=== PATIENT | male | born 1965 | race African-American/Black ===

== ENCOUNTER 2016-04-17 09:50 | Day surgery (SDC) | payer BC, OTHER ==
[2016-04-12 14:27] VITALS: BMI 47.7
[2016-04-17] MEDS ORDERED: LACTATED RINGERS 1,000 ML IV SCH (10:00)
[2016-04-17] MEDS ORDERED: LIDOCAINE 1% 20 ML VIAL (10MG/ML) FOR IV START INTRADERMA ONE (10:12)
[2016-04-17 10:15] VITALS: RESP 18; TEMP 97.8
[2016-04-17 10:17] LABS: Glucose,Whole Blood 116 mg/dL (75-99)
[2016-04-17] MEDS ORDERED: MIDAZOLAM 2 MG/2 ML VIAL ONE (10:36)
[2016-04-17] MEDS ORDERED: fentaNYL (PF) 50 MCG/ML 2 ML AMP ONE (10:36)
[2016-04-17] MEDS ORDERED: BUPIVACAINE (PF) 0.5% 30 ML VIAL ONE (10:36)
--- NOTE | 2016-04-17 10:58 | P.PCN ---
Date of Procedure: 04/17/16 Preoperative Diagnosis: Lumbar spondylosis without myelopathy Morbid obesity Postoperative Diagnosis: Lumbar spondylosis without myelopathy Morbid obesity Procedure(s) Performed: Lumbar bilateral medial branch block under fluoroscopic guidance Anesthesia: MAC Surgeon: Tg Sosa Pathology: none sent Condition: stable Disposition: PACU Description of Procedure: The patient was seen in preop holding area consent was obtained. He has significant cardiac dysfunction with history of AICD placement with the most recent EF about 45% as he was told. The patient was brought into the procedure room and placed in prone position. Skin was prepped with ChloraPrep and draped in a sterile manner. Lidocaine 1% used to numb the skin up at the target points that were chosen as follows: For the L5-S1 level which corresponds to the dorsal ramus of L5 the target points were at the superior medial aspect of the sacral alar on each side of the spine on the AP view of fluoroscopy, and for the L3 and L4 medial branches the target points were the connection between the transverse process and superior articular process of L4 and L5 vertebra respectively on the oblique view of fluoroscopy. I used 5 inch 22-gauge Quincke spinal needle for this procedure, after contacting bone at the target points mentioned above I injected 1 mL of Marcaine 0.5%. I did not use any steroids for this procedure. Patient tolerated procedure well.
[2016-04-17] MEDS ORDERED: IV FLUID CONTINUATION 1,000 ML IV ONE (11:05)
[2016-04-17 11:34] VITALS: BP 135/80; PULSE 74
--- NOTE | 2016-04-17 11:44 | FL ---
EXAMINATION TYPE: FL guided pain mgmt statistic DATE OF EXAM: 04/17/2016 11:02 AM HISTORY: Flouroscopy time 29 seconds of fluoroscopy provided. IMPRESSION: 1. Fluoroscopy time.
== END 2016-04-17 11:44 | disposition home or self-care (01) ==
LOC: ORPAIN 09:50
PROVIDERS: ATTEND Anesthesiology
DX: M47.816 Spondylosis without myelopathy or radiculopathy, lumbar region (principal); E11.9 Type 2 diabetes mellitus without complications; I11.0 Hypertensive heart disease with heart failure; I50.9 Heart failure, unspecified; E66.01 Morbid (severe) obesity due to excess calories; Z95.810 Presence of automatic (implantable) cardiac defibrillator
CPT/HCPCS: 64493; 64494; 64495; J2250; J3010

== ENCOUNTER → 2016-05-03 | Outpatient (CLI) | payer OTHER ==
[2016-05-03 15:26] VITALS: BP 141/104; PULSE 73; RESP 20; TEMP 97.6
--- NOTE | 2016-05-03 15:34 | P.PN ---
Progress Note - Text Patient returns for followup for chronic back pain with radiation to lower extremities. Patient recently underwent bilateral lumbar MBB x 2, the first of which provided 2-3 days' interval relief but the patient had no relief from the second. Patient continues on occasional Mentcle pills for pain with good relief. Patient denies adverse drug effects from medications. Today, pt denies new- onset weakness, bowel/bladder incontinence, or any other signs or symptoms of cauda equina syndrome. There are no signs of acute intoxication, and no indications of medication diversion or overuse. In addition to above, 13-point review of systems is also negative for chest pain , shortness of breath, changes in vision, changes in hearing, new onset weakness , abdominal pain, diarrhea, extreme fatigue, malaise, fever, skin changes, homicidal or suicidal ideation, or bowel or bladder incontinence. Vital Signs: Reviewed in EMR Gen: WDWN, AAOx3, NAD HEENT: NCAT, EOMI, hearing grossly normal Pulm: resp unlabored Abd: soft, NT, ND Neck: supple, trachea midline ROM in flexion lumbar spine: reduced ROM in extension lumbar spine: reduced Lumbar paravertebral tenderness: reduced Facet loading: ++ bilateral, L > R SI joint tenderness: + L > R Jose's test: + L side Neuro: CN II-XII grossly intact, muscle strength lower extremities PRESERVED Imaging: Reviewed in EMR Assessment: 1. lumbar spondylosis without myelopathy 2. sacroiliac joint dysfunction 3. morbid obesity Plan: 1. Explanation: Opioid and psychological risk scores were reviewed. Diagnoses , prognoses, and multiple treatment options including but not limited to physical therapy, interventional therapies, adjuvant medical therapies, narcotic medication therapies, and surgery were discussed with the patient and all questions were answered to the patient's satisfaction. 2. Opioid agreement: Patient will today sign narcotic agreement, and was orally counseled to not overuse, abuse, divert, or cell medications, and to take them as prescribed by only 1 healthcare provider. The patient was also counseled to store opioid medications in a safe and preferably locked location. Patient was also counseled against driving or operating heavy equipment while using narcotic medications and also to not use alcohol or any illicit or recreational drugs. The patient verbalized understanding that lack of compliance with any of the above and likely result in failure to renew narcotic prescriptions, possible discharge from the clinic, and possible legal ramifications thereafter if indicated. 3. Counseling: The patient was counseled extensively on BODY MASS INDEX, EXERCISE. Specifically, the patient was instructed regarding the importance of weight control and exercise in the context of both chronic pain and overall health. 4. Procedures: repeat bilateral lumbar MBB (please use steroids) 5. Consultations: None 6. Investigations: None 7. Medications: tramadol 50 mg #60 with one refill 8. Disposition: f/u for PQRS measures: 1-Patient's medications are documented in the chart. 2-Tobacco use is positive, counseling given 3-Patient has not had a pneumococcal vaccine. 4-Advanced care planning discussed, patient not able to give. 5-Opioid contract NOT signed with the patient. 6-Pain positive, follow-up visit or procedure scheduled 7-Patient's blood pressure measured and documented, and patient will follow up with the primary care due to hypertension. 8-Patient's weight was measured, and body mass index ABOVE the normal limits, and counseling was done. Patient instructed to follow up with PCP. 9-Patient WAS NOT identified as an unhealthy alcohol user.
== END | disposition home or self-care (01) ==
LOC: PNWHC3 14:19
PROVIDERS: ATTEND Anesthesiology
DX: M47.816 Spondylosis without myelopathy or radiculopathy, lumbar region (principal); M53.88 Other specified dorsopathies, sacral and sacrococcygeal region; E66.01 Morbid (severe) obesity due to excess calories; Z79.899 Other long term (current) drug therapy; Z72.0 Tobacco use; I10 Essential (primary) hypertension
CPT/HCPCS: 80307 ×2; G0480; G0463; 80349; 99211

== ENCOUNTER 2016-06-12 06:54 | Day surgery (SDC) | payer OTHER ==
[2016-06-09 11:35] VITALS: BMI 47.5
[~2016-06-12 06:54] MED LIST: LACTATED RINGERS 1,000 ML IV SCH
[2016-06-12 07:28] VITALS: RESP 16; TEMP 98
[2016-06-12 07:41] LABS: Glucose,Whole Blood 108 mg/dL (75-99)
[2016-06-12] MEDS ORDERED: TRIAMCINOLONE ACETONIDE 40 MG/ML 1 ML VIAL ONE (07:47)
[2016-06-12] MEDS ORDERED: fentaNYL (PF) 50 MCG/ML 2 ML AMP ONE (07:47)
[2016-06-12] MEDS ORDERED: BUPIVACAINE (PF) 0.5% 30 ML VIAL ONE (07:47)
[2016-06-12] MEDS ORDERED: MIDAZOLAM 2 MG/2 ML VIAL ONE (07:47)
--- NOTE | 2016-06-12 08:14 | P.PCN ---
Date of Procedure: 06/12/16 Preoperative Diagnosis: Lumbar spondylosis without myelopathy Postoperative Diagnosis: Lumbar spondylosis without myelopathy Procedure(s) Performed: Lumbar bilateral medial branch block under fluoroscopic guidance Anesthesia: MAC Surgeon: Tg Sosa Pathology: none sent Condition: stable Disposition: PACU Description of Procedure: The patient was seen in the preop holding area consent was obtained then he was brought into the procedure room and placed in prone position. Skin was prepped with ChloraPrep and draped in a sterile manner. Lidocaine 1% was used to numb the skin up at the target points that were chosen as follows: For the dorsal ramus of L5 the target points were of the superior medial aspect of the sacral ala on each side of the spine on the AP view of fluoroscopy, and for the L3 and L4 medial branches the target points were the connection between the transverse process and the superior articular process of L4 and L5 vertebra respectively on the oblique view of fluoroscopy. I used 22-gauge 5 inch Quincke spinal needle for this procedure and after contacting bone at the target points mentioned above I injected 1 mL of a solution made up of 5 MLS of Marcaine 0.5% +40 mg of Kenalog. Patient tolerated procedure well.
[2016-06-12] MEDS ORDERED: IV FLUID CONTINUATION 1,000 ML IV ONE (08:17)
[2016-06-12 08:19] VITALS: PULSE 66
--- NOTE | 2016-06-12 08:22 | FL ---
FLUOROSCOPY 11 seconds of fluoroscopy time were utilized during facet block. 3 images document the procedure.
[2016-06-12 08:32] VITALS: BP 135/78
== END 2016-06-12 08:49 | disposition home or self-care (01) ==
LOC: ORPAIN 06:54
PROVIDERS: ATTEND Anesthesiology
DX: M47.816 Spondylosis without myelopathy or radiculopathy, lumbar region (principal)
CPT/HCPCS: 64493; 64494; 64495; J2250; J3301; J3010

== ENCOUNTER → 2016-06-20 | Outpatient (CLI) | payer OTHER ==
--- NOTE | 2016-06-20 21:41 | PN ---
This is a 50-year-old obese male patient who is coming in for a CPAP compliancy check. The patient was diagnosed having severe DAKOTA and the patient was started on CPAP therapy at a pressure of 16 cm of water. On today's evaluation, the patient seems to be using his CPAP every night without any interruption. His compliance over the past month is 30 out of 30 with an average CPAP use of 7.5 hours per night. He is using a Simplus full face mask with leak factor is 19 L/ minimal. His AHI while on treatment is down to 1.1. He has no other complaints otherwise. He has mentioned that he is up sweating at night and he wants to eliminate the heated humidification and this option was available to assist CPAP machine and appropriate adjustments were made. His weight is up at 393 which is 8 pounds higher compared to 2 months ago. Clinically the patient is doing well. He is alert and awake during the day. He is benefiting from CPAP therapy. No falling asleep during daytime activities. He is averaging at least 7 hours of sleep at night. BP is 142/83, pulse 100, respiration 16, temperature 98.0, weight is 393, saturation 96% on room air. GENERAL APPEARANCE: Obese, calm, comfortable. HEENT: Short neck, crowding posterior pharynx. LUNGS: Clear to auscultation. HEART: Heart sounds are regular rate and rhythm. Normal S1, S2. No S3. No S4. No murmurs. ABDOMEN: Soft, nontender. No organomegaly. EXTREMITIES: No edema. No cyanosis, or clubbing. IMPRESSION: 1. Symptomatic obstructive sleep apnea, currently receiving CPAP at a pressure of 16 cm of water. The patient is clinically improved and patient is compliant. 2. Sick sinus syndrome. 3. Ischemic cardiomyopathy status post AICD placement. 4. Diabetes mellitus. 5. Hypertension. 6. Chronic back pain. 7. Obesity with interval 8 pounds weight gain. His current body mass index is above 50. PLAN: 1. Weight loss. 2. Encourage using CPAP every night. 3. Implement good sleep hygiene measures. 4. Clinically patient improved. 5. Suggest considering the Simplus fullface mask, which is a large size. 6. Eliminate heated humidity. 7. See me back in a year's time in follow-up; earlier if needed.
== END | disposition home or self-care (01) ==
LOC: SLEEP 14:50
PROVIDERS: ATTEND Internal Medicine Critical Care Medicine
DX: G47.33 Obstructive sleep apnea (adult) (pediatric) (principal); I49.5 Sick sinus syndrome; I25.5 Ischemic cardiomyopathy; Z95.810 Presence of automatic (implantable) cardiac defibrillator; E11.9 Type 2 diabetes mellitus without complications; I10 Essential (primary) hypertension; G89.29 Other chronic pain; M54.9 Dorsalgia, unspecified; E66.9 Obesity, unspecified; Z68.43 Body mass index [BMI] 50.0-59.9, adult

== ENCOUNTER → 2016-07-25 | Outpatient (CLI) | payer OTHER ==
[2016-07-25 13:15] VITALS: BP 167/104; PULSE 74; RESP 18; TEMP 96.4
--- NOTE | 2016-07-25 13:35 | P.PN ---
Progress Note - Text Patient returns for followup for chronic back pain with radiation to lower extremities. Patient recently underwent bilateral lumbar MBB x 2, the first of which provided 2-3 days' interval relief but the patient had 2-3 hours relief from second MBB which was done without steroids (and no fentanyl given). Patient did not fill tramadol prescription from last visit. Patient denies adverse drug effects from medications. He is still having severe pain with simply taking a walk with his girlfriend. Today, pt denies new-onset weakness, bowel/bladder incontinence, or any other signs or symptoms of cauda equina syndrome. There are no signs of acute intoxication, and no indications of medication diversion or overuse. In addition to above, 13-point review of systems is also negative for chest pain , shortness of breath, changes in vision, changes in hearing, new onset weakness , abdominal pain, diarrhea, extreme fatigue, malaise, fever, skin changes, homicidal or suicidal ideation, or bowel or bladder incontinence. Vital Signs: Reviewed in EMR Gen: WDWN, AAOx3, NAD HEENT: NCAT, EOMI, hearing grossly normal Pulm: resp unlabored Abd: soft, NT, ND Neck: supple, trachea midline ROM in flexion lumbar spine: reduced ROM in extension lumbar spine: reduced Lumbar paravertebral tenderness: reduced Facet loading: ++ bilateral, L > R SI joint tenderness: + L > R Jose's test: + L side Neuro: CN II-XII grossly intact, muscle strength lower extremities PRESERVED Imaging: Reviewed in EMR Assessment: 1. lumbar spondylosis without myelopathy 2. sacroiliac joint dysfunction 3. morbid obesity Plan: 1. Explanation: Opioid and psychological risk scores were reviewed. Diagnoses , prognoses, and multiple treatment options including but not limited to physical therapy, interventional therapies, adjuvant medical therapies, narcotic medication therapies, and surgery were discussed with the patient and all questions were answered to the patient's satisfaction. 2. Opioid agreement: Patient will today sign narcotic agreement, and was orally counseled to not overuse, abuse, divert, or cell medications, and to take them as prescribed by only 1 healthcare provider. The patient was also counseled to store opioid medications in a safe and preferably locked location. Patient was also counseled against driving or operating heavy equipment while using narcotic medications and also to not use alcohol or any illicit or recreational drugs. The patient verbalized understanding that lack of compliance with any of the above and likely result in failure to renew narcotic prescriptions, possible discharge from the clinic, and possible legal ramifications thereafter if indicated. 3. Counseling: The patient was counseled extensively on BODY MASS INDEX, EXERCISE. Specifically, the patient was instructed regarding the importance of weight control and exercise in the context of both chronic pain and overall health. 4. Procedures: R vs. L lumbar RFA 5. Consultations: None 6. Investigations: None 7. Medications: none prescribed 8. Disposition: f/u for procedure as scheduled PQRS measures: 1-Patient's medications are documented in the chart. 2-Tobacco use is positive, counseling given 3-Patient has not had a pneumococcal vaccine. 4-Advanced care planning discussed, patient not able to give. 5-Opioid contract NOT signed with the patient. 6-Pain positive, follow-up visit or procedure scheduled 7-Patient's blood pressure measured and documented, and patient will follow up with the primary care due to hypertension. 8-Patient's weight was measured, and body mass index ABOVE the normal limits, and counseling was done. Patient instructed to follow up with PCP. 9-Patient WAS NOT identified as an unhealthy alcohol user.
== END | disposition home or self-care (01) ==
LOC: PNWHC3 12:58
PROVIDERS: ATTEND Anesthesiology
DX: M47.816 Spondylosis without myelopathy or radiculopathy, lumbar region (principal); M53.3 Sacrococcygeal disorders, not elsewhere classified; E66.01 Morbid (severe) obesity due to excess calories; G89.29 Other chronic pain
CPT/HCPCS: 99211

== ENCOUNTER 2016-08-10 11:00 | Day surgery (SDC) | payer OTHER ==
[2016-08-01 09:11] VITALS: BMI 47.5
[2016-08-10 10:25] VITALS: TEMP 96.4
[2016-08-10 10:36] LABS: Glucose,Whole Blood 106 mg/dL (75-99)
[~2016-08-10 11:00] MED LIST changes: +LIDOCAINE 1% 20 ML VIAL (10MG/ML) FOR IV START INTRADERMA PRN; +MIDAZOLAM 2 MG/2 ML VIAL ONE; +TRIAMCINOLONE ACETONIDE 40 MG/ML 1 ML VIAL ONE; +fentaNYL (PF) 50 MCG/ML 2 ML AMP ONE
--- NOTE | 2016-08-10 11:40 | P.PCN ---
Date of Procedure: 08/10/16 Preoperative Diagnosis: Lumbar spondylosis without myelopathy Morbid Obesity Postoperative Diagnosis: Same as above Procedure(s) Performed: Left lumbar medial branch radio frequency ablation under fluoroscopic guidance Implants: Anesthesia: other (Conscious sedation) Surgeon: Tg Sosa Pathology: none sent Condition: stable Disposition: PACU Indications for Procedure: Operative Findings: Description of Procedure: The patient was seen in the preop holding area consent was obtained then he was brought into the procedure room and placed in prone position. Skin was prepped with Betadine 3 and draped in a sterile manner. Lidocaine 1% was used to numb the skin over the target points that were chosen as follows: For the L5-S1 level which corresponds to the dorsal ramus of L5 the target point was at the superior medial aspect of the sacral ala on the left side of the spine on the AP view of fluoroscopy and for the L3 and L4 medial branches the target points were at the connection between the transverse process and the superior articular process of L4 and L5 vertebra respectively on the left oblique view of fluoroscopy. I used 18-gauge 150 mm in length with 10 mm curved active tip radiofrequency ablation needles for this procedure. The, oblique, and lateral views of fluoroscopy were obtained to verify needle tip position then motor stimulation showed only local twitches of these needles with no radiation of twitching to the left lower extremity or to the groin anteriorly. Then I prepared a solution of 2 MLS Marcaine 0.5% +40 mg of Kenalog and 1 mL of the solution was given in each needle. After that radiofrequency ablation was started for 90 seconds at 80C. Then the needles were withdrawn by 1 or 2 mm and the bevels were turned 180 and then another session of ablation was started for 90 seconds at 80C. Patient tolerated procedure well. During the testing at the ablation a magnetic was applied to the patient's AICD and removed at the end of the procedure.
--- NOTE | 2016-08-10 11:42 | FL ---
FLUOROSCOPY 55 seconds of fluoroscopy time were utilized during Pain Injection. 1 images document the procedure..
[2016-08-10] MEDS ORDERED: IV FLUID CONTINUATION 1,000 ML IV ONE (11:50)
[2016-08-10 12:09] LABS: Glucose,Whole Blood 129 mg/dL (75-99)
[2016-08-10] MEDS ORDERED: MIDAZOLAM 2 MG/2 ML VIAL IVP ONE (12:15)
[2016-08-10 12:33] VITALS: RESP 16
[2016-08-10] MEDS ORDERED: LABETALOL 5 MG/ML VIAL MDV IVP ONE (12:45)
[2016-08-10 12:47] VITALS: BP 154/99; PULSE 59
== END 2016-08-10 13:30 | disposition home or self-care (01) ==
LOC: ORPAIN 11:00
PROVIDERS: ATTEND Anesthesiology
DX: M47.816 Spondylosis without myelopathy or radiculopathy, lumbar region (principal); E66.01 Morbid (severe) obesity due to excess calories; Z68.42 Body mass index [BMI] 45.0-49.9, adult; Z95.810 Presence of automatic (implantable) cardiac defibrillator
CPT/HCPCS: 64635; 64636 ×2; 99152; 99153; J2250; J3301; J3010

== ENCOUNTER → 2016-08-15 | Outpatient (CLI) | payer OTHER ==
[2016-08-15 13:02] LABS: Glucose 106 mg/dL (74-99)
[2016-08-15 13:52] LABS: Vitamin B12 528 pg/mL (239-931)
[2016-08-15 14:02] LABS: Hemoglobin A1C 6.4 % (4.2-6.1)
== END | disposition home or self-care (01) ==
LOC: LABWHC1 11:53
PROVIDERS: ATTEND Psychiatry & Neurology Neurology
DX: E11.42 Type 2 diabetes mellitus with diabetic polyneuropathy (principal)
CPT/HCPCS: 36415; 82607; 82947; 83036

== ENCOUNTER 2016-08-25 06:26 | Day surgery (SDC) | payer OTHER ==
[2016-08-23 11:05] VITALS: BMI 47.5
[~2016-08-25 06:26] MED LIST changes: -LIDOCAINE 1% 20 ML VIAL (10MG/ML) FOR IV START INTRADERMA PRN; -MIDAZOLAM 2 MG/2 ML VIAL ONE; -TRIAMCINOLONE ACETONIDE 40 MG/ML 1 ML VIAL ONE; -fentaNYL (PF) 50 MCG/ML 2 ML AMP ONE
[2016-08-25 06:44] VITALS: TEMP 84.8
[2016-08-25] MEDS ORDERED: LIDOCAINE 1% 20 ML VIAL (10MG/ML) FOR IV START INTRADERMA ONE (06:51)
[2016-08-25 06:52] LABS: Glucose,Whole Blood 94 mg/dL (75-99)
[2016-08-25] MEDS ORDERED: BUPIVACAINE (PF) 0.5% 30 ML VIAL ONE (07:56)
[2016-08-25] MEDS ORDERED: DEXAMETHASONE SOD PHOS (MDV) 100 MG/10 ML VIAL ONE (07:56)
[2016-08-25] MEDS ORDERED: MIDAZOLAM 2 MG/2 ML VIAL ONE (07:56)
[2016-08-25] MEDS ORDERED: fentaNYL (PF) 50 MCG/ML 2 ML AMP ONE (07:56)
[2016-08-25] MEDS ORDERED: IV FLUID CONTINUATION 1,000 ML IV ONE ×2 (08:37)
--- NOTE | 2016-08-25 08:39 | FL ---
FLUOROSCOPY 24 seconds of fluoroscopy time were utilized during Pain Injection. 4 images document the procedure.
[2016-08-25 09:08] VITALS: RESP 20
[2016-08-25] MEDS ORDERED: ONDANSETRON 4 MG/2 ML VIAL IVP STA (09:08)
[2016-08-25 09:10] LABS: Glucose,Whole Blood 107 mg/dL (75-99)
[2016-08-25 09:30] VITALS: BP 137/75; PULSE 66
--- NOTE | 2016-08-25 11:14 | P.PCN ---
Date of Procedure: 08/25/16 Preoperative Diagnosis: Postoperative Diagnosis: Procedure(s) Performed: PREOPERATIVE DIAGNOSIS: 1-Lumbar Spondylosis with Facet Arthropathy without myelopathy. POSTOPERATIVE DIAGNOSIS: 1- Lumbar Spondylosis with Facet Arthropathy without myelopathy. PROCEDURES : Right Radiofrequency thermocoagulation, L3-L4, L4-L5, and L5-S1 medial branch, with fluoroscopic guidance ANESTHESIA: IV sedation with versed 4 mg and fentaneyl 200 mcg and local infiltration with lidocaine 1% 6 ml EBL: Minimal PROCEDURE INDICATION: The patient with low back pain secondary to lumbar facet arthropathy who had more than 50% relief of her pain with previous diagnostic lumbar medial branch block with bupivacaine. PROCEDURE DESCRIPTION / TECHNIQUE: The patient was seen and identified in the preoperative area. Risks, benefits, complications, including but not limited to risk of infection ,bleeding , allergic reactions to the medications and no complete pain releife , and alternatives were discussed with the patient, the patient agreed to proceed with the procedure and signed the consent. IV was started. Vital signs remained stable throughout the procedure. Patient was taken to the OR and time out was completed. The patient was placed in the prone position on the procedure table. The lumber area was prepped and draped in the usual sterile fashion. . Vital signs were closely monitored during the procedure .IV sedation was used during the procedure to decrease patients anxiety. Using AP and then oblique fluoroscopy, the ``eye of the Ron dog corresponding to the connection between the superior and transverse articular processes of right L3, L4, and L5 were identified, marked, and localized with 1 % lidocaine. Subsequently, a 18 [id number] radiofrequency cannula with a 10- mm active tip was advanced guided by fluoroscopy to each of the ``eyes of the Ron dog at right L3, L4, and L5. Each site then underwent sensory testing at 50 Hz and 0 to 1 volt and motor testing at 2.5 Hz and 0 to 3 volt with local stimulation, but no radicular symptoms down the legs. Thereafter the right L3-4, L4-5, and L5-S1 sites underwent radiofrequency thermocoagulation at 80 degrees celsius for 90 seconds after injecting 0.5 ml of PF lidocaine 1%. then After the thermocoagulation done , 1 ml of the block solution containing Kenalog 40 mg and 3 ml of marain 0.5% was injected at the right L3- 4 , L4-5 , and L5-S1, levels after negative aspiration of CSF and blood and with no paresthesias. Cannulas were retracted while injecting lidocaine 1% until the needle is out. At the end of the procedure, the skin was cleansed and bandages were applied. COMPLICATIONS: No acute complications. DISPOSITION / PLANS: The patient was placed in a supine position and transferred to the recovery area in a stable condition for observation and was discharged from the recovery room after meeting discharge criteria. Home discharge instructions given to the patient by the staff. The patient was reexamined prior to discharge. The patient will schedule a follow up in the clinic in 2-4 weeks. Implants: Indications for Procedure: Operative Findings: Description of Procedure:
== END 2016-08-25 09:44 | disposition home or self-care (01) ==
LOC: ORPAIN 06:26
PROVIDERS: ATTEND Specialist
DX: M47.816 Spondylosis without myelopathy or radiculopathy, lumbar region (principal); M46.96 Unspecified inflammatory spondylopathy, lumbar region; I11.0 Hypertensive heart disease with heart failure; I50.9 Heart failure, unspecified; J44.9 Chronic obstructive pulmonary disease, unspecified; G47.33 Obstructive sleep apnea (adult) (pediatric); E11.9 Type 2 diabetes mellitus without complications; E66.01 Morbid (severe) obesity due to excess calories; Z79.01 Long term (current) use of anticoagulants
CPT/HCPCS: 99152; 64635; 64636 ×2; J2250; J2405; J3010; J1100

== ENCOUNTER → 2016-10-03 | Outpatient (CLI) | payer OTHER ==
--- NOTE | 2016-10-03 17:59 | US ---
EXAMINATION TYPE: US venous doppler duplex LE LT DATE OF EXAM: 10/03/2016 5:48 PM COMPARISON: NONE CLINICAL HISTORY: M79.652 Left thigh pain. SIDE PERFORMED: Left TECHNIQUE: The lower extremity deep venous system is examined utilizing real time linear array sonog alysia with graded compression, doppler sonography and color-flow sonography. VESSELS IMAGED: External Iliac Vein (EIV) Common Femoral Vein Deep Femoral Vein Greater Saphenous Vein * Femoral Vein Popliteal Vein Small Saphenous Vein * Proximal Calf Veins (* superficial vessels) Left Leg: Negative for DVT IMPRESSION: No evidence of deep venous thrombosis in the left leg.
--- NOTE | 2016-10-03 18:01 | XR ---
EXAMINATION TYPE: XR femur LT DATE OF EXAM: 10/03/2016 COMPARISON: NONE HISTORY: Pain TECHNIQUE: 4 views FINDINGS: I see no fracture nor dislocation. There is spurring of the acetabulum. I see no bony destr uctive process. IMPRESSION: There is some mild osteoarthritis in the left hip joint. No fracture.
--- NOTE | 2016-10-03 18:02 | XR ---
EXAMINATION TYPE: XR Hip Complete LT DATE OF EXAM: 10/03/2016 COMPARISON: NONE HISTORY: Pain TECHNIQUE: 2 views FINDINGS: AP and frog-leg views show mild acetabular spurring. There is spurring on the femoral head. There is mild hip joint space narrowing. I see no fracture. IMPRESSION: Mild osteoarthritis. No fracture.
== END | disposition home or self-care (01) ==
LOC: RADUSMAIN 17:07
PROVIDERS: ATTEND Family Medicine
DX: M79.652 Pain in left thigh (principal); M16.12 Unilateral primary osteoarthritis, left hip; E11.42 Type 2 diabetes mellitus with diabetic polyneuropathy; I10 Essential (primary) hypertension
CPT/HCPCS: 73502

== ENCOUNTER → 2016-10-11 | Outpatient (CLI) | payer OTHER ==
[2016-10-11 14:07] VITALS: BP 142/98; RESP 20; TEMP 97.7
--- NOTE | 2016-10-11 14:23 | P.PN ---
Progress Note - Text Patient returns for followup for chronic back pain with radiation to lower extremities. Patient recently underwent bilateral lumbar RFA with one month's relief of both his back and his leg pain but now has returned to his baseline pain. Patient is having pain primarily in his anterior thighs when he lies down. Patient denies adverse drug effects from medications. Today, pt denies new-onset weakness, bowel/bladder incontinence, or any other signs or symptoms of cauda equina syndrome. There are no signs of acute intoxication, and no indications of medication diversion or overuse. In addition to above, 13-point review of systems is also negative for chest pain , shortness of breath, changes in vision, changes in hearing, new onset weakness , abdominal pain, diarrhea, extreme fatigue, malaise, fever, skin changes, homicidal or suicidal ideation, or bowel or bladder incontinence. Vital Signs: Reviewed in EMR Gen: WDWN, AAOx3, NAD HEENT: NCAT, EOMI, hearing grossly normal Pulm: resp unlabored Abd: soft, NT, ND Neck: supple, trachea midline ROM in flexion lumbar spine: reduced ROM in extension lumbar spine: reduced Lumbar paravertebral tenderness: reduced Facet loading: ++ bilateral, L > R SI joint tenderness: + L > R Jose's test: + L side Straight leg raise: + LLE at 15 degrees Neuro: CN II-XII grossly intact, muscle strength lower extremities PRESERVED Imaging: Reviewed in EMR Assessment: 1. lumbar spondylosis without myelopathy 2. sacroiliac joint dysfunction 3. morbid obesity Plan: 1. Explanation: Opioid and psychological risk scores were reviewed. Diagnoses , prognoses, and multiple treatment options including but not limited to physical therapy, interventional therapies, adjuvant medical therapies, narcotic medication therapies, and surgery were discussed with the patient and all questions were answered to the patient's satisfaction. 2. Opioid agreement: no opioids prescribed 3. Counseling: The patient was counseled extensively on BODY MASS INDEX, EXERCISE. Specifically, the patient was instructed regarding the importance of weight control and exercise in the context of both chronic pain and overall health. 4. Procedures: LESI series, will need long Tuohy needle 5. Consultations: None 6. Investigations: None 7. Medications: none prescribed 8. Disposition: f/u for procedure as scheduled PQRS measures: 1-Patient's medications are documented in the chart. 2-Tobacco use is positive, counseling given 3-Patient has not had a pneumococcal vaccine. 4-Advanced care planning discussed, patient not able to give. 5-Opioid contract NOT signed with the patient. 6-Pain positive, follow-up visit or procedure scheduled 7-Patient's blood pressure measured and documented, and patient will follow up with the primary care due to hypertension. 8-Patient's weight was measured, and body mass index ABOVE the normal limits, and counseling was done. Patient instructed to follow up with PCP. 9-Patient WAS NOT identified as an unhealthy alcohol user.
== END ==
LOC: PNWHC3 13:33
PROVIDERS: ATTEND Anesthesiology
DX: M47.816 Spondylosis without myelopathy or radiculopathy, lumbar region (principal); M53.3 Sacrococcygeal disorders, not elsewhere classified; E66.01 Morbid (severe) obesity due to excess calories
CPT/HCPCS: 99211

== ENCOUNTER → 2016-10-24 | Outpatient (CLI) | payer OTHER ==
[2016-10-24 14:44] LABS: Anion Gap 11 mmol/L; Blood Urea Nitrogen 14 mg/dL (9-20); Calcium 9.7 mg/dL (8.4-10.2); Carbon Dioxide 29 mmol/L (22-30); Chloride 107 mmol/L (98-107); Glucose 128 mg/dL (74-99); Non-African American GFR(MDRD) >60 (>60 ml/min/1.73 sqM); Potassium 3.9 mmol/L (3.5-5.1); Sodium 147 mmol/L (137-145)
== END | disposition home or self-care (01) ==
LOC: LABWHC1 14:03
PROVIDERS: ATTEND Internal Medicine Cardiovascular Disease
DX: I50.9 Heart failure, unspecified (principal)
CPT/HCPCS: 36415; 80048

== ENCOUNTER 2016-10-31 06:28 | Day surgery (SDC) | payer OTHER ==
[2016-10-25 15:58] VITALS: BMI 48.7
[2016-10-31] MEDS ORDERED: LIDOCAINE 1% 20 ML VIAL (10MG/ML) FOR IV START INTRADERMA ONE (06:32)
[2016-10-31 06:48] VITALS: RESP 16; TEMP 94.1
[2016-10-31 06:55] LABS: Glucose,Whole Blood 108 mg/dL (75-99)
[2016-10-31] MEDS ORDERED: LACTATED RINGERS 1,000 ML IV ONE (07:21)
[2016-10-31] MEDS ORDERED: LACTATED RINGERS 1,000 ML IV SCH (07:30)
[2016-10-31] MEDS ORDERED: IV FLUID CONTINUATION 1,000 ML IV ONE (07:50)
[2016-10-31 08:05] VITALS: BP 120/84; PULSE 66
--- NOTE | 2016-10-31 08:20 | P.PCN ---
Date of Procedure: 10/31/16 Preoperative Diagnosis: Postoperative Diagnosis: Procedure(s) Performed: Implants: Surgeon: Bobby Liriano Pathology: none sent Condition: stable Disposition: PACU Indications for Procedure: Operative Findings: Description of Procedure: PREOPERATIVE DIAGNOSIS: 1-Lumbar radiculitis. POSTOPERATIVE DIAGNOSIS: 1-Lumbar radiculitis. PROCEDURE 1. Lumbar epidural steroid injection under fluoroscopic guidance at the L4-L5 level. 2. Lumbar epidurogram. ANESTHESIA: Local with 1% lidocaine; IV sedation with Versed/fentanyl. EBL: Minimal PROCEDURE INDICATION: The patient with low back pain and radiculitis symptoms unresponsive to conservative treatment. Fluoroscopy was used to optimize visualization of the needle placement and to maximize safety. No use of blood thinners. PROCEDURE DESCRIPTION / TECHNIQUE: The patient was seen and identified in the preoperative area. Risks, benefits, complications, and alternatives were discussed with the patient, including but not limited to bleeding, infection, nerve damage, allergic reactions to medications, and incomplete pain relief. The patient agreed to proceed with the procedure and signed the consent after all questions were answered. IV was started, and vital signs were stable. Patient was taken to the OR and time out was completed to confirm patient position, procedure, laterality of pain, and allergies. The patient was placed in the prone position on procedure table and a pillow was placed under the abdomen to reduce lumbar lordosis. The lumbosacral area was prepped and draped in the usual sterile fashion. Critical pause was taken. Vital signs were closely monitored during the procedure. Conscious sedation was used during the procedure to decrease patients anxiety. Using anterior-posterior fluoroscopy, the L5-S1 interlaminar space was identified and the skin over this site was marked and then infiltrated with 1% lidocaine subcutaneously. Subsequently, a 20-gauge 6-inch Tuohy epidural needle was inserted and advanced toward the epidural space using the Loss of resistance technique and guided by AP and lateral fluoroscopy. The correct needle position in the epidural space was verified with the injection of 2 mL of the water soluble contrast dye Omnipaque 300 contrast and observing an excellent epidurogram with the epidural spread of the dye, after negative aspiration for blood and CSF and in the absence of paresthesias. Again after negative aspiration, a 8 ml mixture containing 20 mg of PF Decadron and 4 ml of preservative free Normal Saline, and 2 ml of preservative free lidocaine 1% solution was injected and a washout of epidurogram was seen. Needle was withdrawn intact, skin was cleansed, and bandages were applied. COMPLICATIONS: None COMMENTS: DISPOSITION / PLANS: The patient was placed in a supine position and transferred to the recovery area in a stable condition for observation. There was no evidence of lower extremity motor or sensory deficit after the procedure. Patient was discharged from the recovery room after meeting discharge criteria. Home discharge instructions were given to the patient by the staff. The patient was reexamined prior to discharge and there were no issues. The patient will schedule a repeat LESI in 4-6 weeks.
--- NOTE | 2016-10-31 08:21 | FL ---
Fluoroscopy HISTORY: Pain 24 seconds fluoroscopy time supplied to the referring clinician. 4 intraoperative C-arm images docum ent the procedure. See dictated report from anesthesia.
== END 2016-10-31 08:23 | disposition home or self-care (01) ==
LOC: ORPAIN 06:28
PROVIDERS: ATTEND Anesthesiology
DX: G89.29 Other chronic pain (principal); M48.06 Spinal stenosis, lumbar region; M54.16 Radiculopathy, lumbar region; Z79.01 Long term (current) use of anticoagulants
CPT/HCPCS: 62323; 99152; J2250; J1100; Q9965; J3010

== ENCOUNTER 2016-11-28 06:27 | Day surgery (SDC) | payer OTHER ==
[2016-11-23 14:33] VITALS: BMI 50.0
[2016-11-28 07:11] VITALS: RESP 16; TEMP 97.7
[2016-11-28 07:13] LABS: Glucose,Whole Blood 113 mg/dL (75-99)
[2016-11-28] MEDS ORDERED: LIDOCAINE 1% 20 ML VIAL (10MG/ML) FOR IV START INTRADERMA ONE (07:17)
[2016-11-28] MEDS ORDERED: LACTATED RINGERS 1,000 ML IV ONE (07:17)
[2016-11-28] MEDS ORDERED: LACTATED RINGERS 1,000 ML IV SCH (07:45)
--- NOTE | 2016-11-28 08:06 | P.PCN ---
Date of Procedure: 11/28/16 Preoperative Diagnosis: Postoperative Diagnosis: Procedure(s) Performed: Implants: Surgeon: Bobby Liriano Pathology: none sent Condition: stable Disposition: PACU Indications for Procedure: Operative Findings: Description of Procedure: PREOPERATIVE DIAGNOSIS: 1-Lumbar radiculitis. POSTOPERATIVE DIAGNOSIS: 1-Lumbar radiculitis. PROCEDURE 1. Lumbar epidural steroid injection under fluoroscopic guidance at the L5-S1 level. 2. Lumbar epidurogram. ANESTHESIA: Local with 1% lidocaine; IV sedation with Versed/fentanyl. EBL: Minimal PROCEDURE INDICATION: The patient with low back pain and radiculitis symptoms unresponsive to conservative treatment. Fluoroscopy was used to optimize visualization of the needle placement and to maximize safety. No use of blood thinners. Patient presents for LESI #2 today after one week's worth of relief from LESI #1. PROCEDURE DESCRIPTION / TECHNIQUE: The patient was seen and identified in the preoperative area. Risks, benefits, complications, and alternatives were discussed with the patient, including but not limited to bleeding, infection, nerve damage, allergic reactions to medications, and incomplete pain relief. The patient agreed to proceed with the procedure and signed the consent after all questions were answered. IV was started, and vital signs were stable. Patient was taken to the OR and time out was completed to confirm patient position, procedure, laterality of pain, and allergies. The patient was placed in the prone position on procedure table and a pillow was placed under the abdomen to reduce lumbar lordosis. The lumbosacral area was prepped and draped in the usual sterile fashion. Critical pause was taken. Vital signs were closely monitored during the procedure. Conscious sedation was used during the procedure to decrease patients anxiety. Using anterior-posterior fluoroscopy, the L5-S1 interlaminar space was identified and the skin over this site was marked and then infiltrated with 1% lidocaine subcutaneously. Subsequently, a 20-gauge 6-inch Tuohy epidural needle was inserted and advanced toward the epidural space using the Loss of resistance technique and guided by AP and lateral fluoroscopy. The correct needle position in the epidural space was verified with the injection of 2 mL of the water soluble contrast dye Omnipaque 300 contrast and observing an excellent epidurogram with the epidural spread of the dye, after negative aspiration for blood and CSF and in the absence of paresthesias. Again after negative aspiration, a 8 ml mixture containing 20 mg of PF Decadron and 4 ml of preservative free Normal Saline, and 2 ml of preservative free lidocaine 1% solution was injected and a washout of epidurogram was seen. Needle was withdrawn intact, skin was cleansed, and bandages were applied. COMPLICATIONS: None COMMENTS: DISPOSITION / PLANS: The patient was placed in a supine position and transferred to the recovery area in a stable condition for observation. There was no evidence of lower extremity motor or sensory deficit after the procedure. Patient was discharged from the recovery room after meeting discharge criteria. Home discharge instructions were given to the patient by the staff. The patient was reexamined prior to discharge and there were no issues. The patient will schedule a follow up in the clinic in 4-6 weeks.
[2016-11-28] MEDS ORDERED: IV FLUID CONTINUATION 1,000 ML IV ONE (08:13)
[2016-11-28 08:29] VITALS: BP 119/73; PULSE 65
--- NOTE | 2016-11-28 10:47 | FL ---
Fluoroscopy HISTORY: Pain 52 seconds fluoroscopy time supplied to the referring clinician. 3 intraoperative C-arm images docum ent the procedure. See dictated report from anesthesia.
== END 2016-11-28 08:47 | disposition home or self-care (01) ==
LOC: ORPAIN 06:27
PROVIDERS: ATTEND Anesthesiology
DX: M54.16 Radiculopathy, lumbar region (principal); I10 Essential (primary) hypertension; F32.9 Major depressive disorder, single episode, unspecified; E11.9 Type 2 diabetes mellitus without complications; Z79.01 Long term (current) use of anticoagulants; Z79.84 Long term (current) use of oral hypoglycemic drugs; Z79.899 Other long term (current) drug therapy
CPT/HCPCS: 62323; 99152; J2250; J1100; Q9965; J3010; 99153

== ENCOUNTER → 2016-12-25 | Outpatient (CLI) | payer OTHER ==
[2016-12-25 14:37] VITALS: BP 143/86; PULSE 69; RESP 16; TEMP 98.2
--- NOTE | 2016-12-25 16:11 | P.PN ---
Progress Note - Text Progress Note Date: 12/25/16 This is a 51-year-old male was morbidly obese with lower back pain with radiation to the lower extremities down to the knees. The patient had lumbar epidural steroid injection lately which gave him only couple of days of pain relief he also had lumbar medial branch RFA which gave him only 1 month of pain relief previously. The patient's pain has been getting worse lately and he understands that the best way to decrease his pain is to lose some weight and he has been trying to do that he lost only 2-3 pounds so far. He does have tenderness in the sacroiliac joints bilaterally. Today I will put the patient on tramadol 50 mg twice a day as needed for his pain we will try to for 1 month and we will see him in 4 weeks for reevaluation. He might benefit from getting a diagnostic sacroiliac joint steroid injection bilaterally under fluoroscopic guidance however we will hold off on these injections for now since he had steroid injection very recently.
== END ==
LOC: PNWHC3 14:23
DX: M54.5 Low back pain (principal); E66.01 Morbid (severe) obesity due to excess calories; Z79.891 Long term (current) use of opiate analgesic
CPT/HCPCS: 99211

== ENCOUNTER → 2017-01-22 | Outpatient (CLI) | payer OTHER ==
[2017-01-22 14:24] VITALS: BP 141/78; PULSE 68; RESP 16; TEMP 98.1
--- NOTE | 2017-01-22 19:15 | P.PN ---
Subjective Progress Note Date: 01/22/17 This is a follow-up visit for this 51 years old male with a chronic history of severe low back pain, continued to have severe low back pain after interventional pain management and is currently on Ultram 50 mg twice a day, we have done radiofrequency ablation of the medial branch lumbar area and also we have done lumbar epidural steroid injections, the and the pain in the low back area is constant and increased with any activity and patient also complaining of some numbness and tingling sensation in the feet bilaterally, he denies any motor or sensory deficit he denies any change in the bowel movements or urination, currently patient taking Ultram 50 mg twice a day for pain and also is on naproxen 500 mg twice a day , he denies any side effect of the medication he denies any excessive drowsiness and sleepiness but he reported that the current medication is not helping him to control his pain Objective - Vital Signs Vital signs: Vital Signs Temp 98.1 F 01/22/17 14:16 Pulse 68 01/22/17 14:16 Resp 16 01/22/17 14:16 BP 141/78 01/22/17 14:16 Pulse Ox Intake & Output 01/22/17 01/22/17 01/23/17 06:59 18:59 06:59 Weight 176.901 kg - Exam Physical Examinations : 1-Constitutiona : Cooperative , not in acute distress . 2-HEENT : nech ; supple , no Lymphadenopathy , normal thyroid size . eyes : no ptosis , no icterus, no photophobia . ENT : normal of hearing , normal oropharynx , no Thrush . 3- Respiratory : Chest clear to auscultations Bilaterally , no wheezing , no Rhonchi . 4- Cardiovascular : regular rate and rhythem , S1 , S2 , no S3 , no S4. 5- Gastrointestinal : abdomen soft no tenderness , bowel sounds positive all four quadrents , no organomegally . 6- Genitourinary : Defferred . 7- neurologic : Cranial nerve II to XII intact , no focal neurological deffecit . 8-psychatric : alert , oriented X 3 , appropriate affect , intact judgment and insight . 9-Lymphatic : no Lymphadenopathy . 10- musculoskeltal : , Lumber spine = normal moter stegnth lower extremities ,thigh and legs .5/5 deep tendon reflexes : normal Knee Jerk , normal ankle Jerk . positive lumber facet Loading Test strait leg raising test positive at 30 degree , RT ,LT , Fabere test positive RT and positive LT . Assessment and Plan Plan: Assessment and plan= chronic low back pain secondary to lumbar degenerative disc disease , lumbar spondylosis with lumbar facet arthropathy , chronic and current use of high-risk medication (opioids) Patient denies any side effects of the current pain medication and the current treatment/medication ML and the patient to do activity of daily living , Diagnoses, prognosis, treatment options, including but not limited to physical therapy, medication management, interventional therapies, and surgery, were discussed with the patient All the questions answered Patient signed the narcotic agreement, and he was orally counseled, not to overuse, not to abuse, not to Divert , not tp sell pain medication, and to take it as prescribed only, Patient was counseled not to drive or operate heavy equipment while using narcotic medication, and advised not to use alcohol or any Illicit drugs while using the narcotis, the patient's verbalized understanding that lack of compliance with any of the above instructions and will likely to cause discharge from the pain service, not to renew his narcotic prescriptions Medication managements= patient will be given prescription refills for 1-discontinue naproxen (as patient currently on ELIQUIS ) on the combination between liquids and naproxen increased risk of bleeding 2-start patient on Celebrex 200 mg daily 3-start patient on Neurontin 300 mg twice a day. 4-continue Ultram 50 mg twice a day and 60 with 1 refill Interventional pain management=none Refferal =none Follow-up= 2 months ,
== END ==
LOC: PNWHC3 13:37
PROVIDERS: ATTEND Specialist
DX: M51.36 Other intervertebral disc degeneration, lumbar region (principal); M47.816 Spondylosis without myelopathy or radiculopathy, lumbar region; M46.86 Other specified inflammatory spondylopathies, lumbar region; Z79.891 Long term (current) use of opiate analgesic; Z79.899 Other long term (current) drug therapy
CPT/HCPCS: 99211

== ENCOUNTER 2017-01-28 20:07 | Emergency (ER) | payer OTHER ==
[2017-01-28] MEDS ORDERED: MORPHINE SULFATE 10 MG/ML SYRINGE IV STA (20:22)
[2017-01-28] MEDS ORDERED: ASPIRIN 81 MG PO STA (20:22)
[2017-01-28 21:01] LABS: Basophils # (A) 0.1 k/uL (0-0.2); Basophils % (A) 1 %; CHCM 31.7; Eosinophils # (A) 0.3 k/uL (0-0.7); Eosinophils % (A) 4 %; HGB 15.8 gm/dL (13.0-17.5); Luc # (Auto) 0.06; Luc % (Auto) 1; Lymphocytes # (A) 2.5 k/uL (1.0-4.8); Lymphocytes % (A) 30 %; MCHC 31.6 g/dL (31.0-37.0); MCV 88.6 fL (80.0-100.0); Monocytes # (A) 0.6 k/uL (0-1.0); Monocytes % (A) 7 %; Neutrophils # (A) 4.7 k/uL (1.3-7.7); Neutrophils % (A) 58 %; RBC 5.64 m/uL (4.30-5.90); RDW 14.9 % (11.5-15.5); WBC 8.2 k/uL (3.8-10.6); WBC (Perox) 7.52
[2017-01-28 21:07] LABS: ALT 31 U/L (21-72); AST 24 U/L (17-59); Alkaline Phosphatase 80 U/L (38-126); Anion Gap 8 mmol/L; Blood Urea Nitrogen 11 mg/dL (9-20); Calcium 9.2 mg/dL (8.4-10.2); Carbon Dioxide 28 mmol/L (22-30); Chloride 106 mmol/L (98-107); Glucose 103 mg/dL (74-99); Magnesium 1.7 mg/dL (1.6-2.3); Non-African American GFR(MDRD) >60 (>60 ml/min/1.73 sqM); Sodium 142 mmol/L (137-145); Total Bilirubin 0.7 mg/dL (0.2-1.3); Total Protein 7.5 g/dL (6.3-8.2)
[2017-01-28 21:09] LABS: INR 1.1 (<1.2); Partial Thromboplastin Time 25.7 sec (22.0-30.0); Prothrombin Time 11.2 sec (9.0-12.0)
[2017-01-28 21:09] LABS: Glucose,Whole Blood 103 mg/dL (75-99)
--- NOTE | 2017-01-28 21:30 | XR ---
EXAMINATION TYPE: XR chest 1V portable DATE OF EXAM: 01/28/2017 COMPARISON: 09/23/2015, 03/03/2015 INDICATION: Chest pain, previous abnormal chest TECHNIQUE: Single frontal view of the chest is obtained. FINDINGS: The heart size is at the upper limits of normal for size.. The pulmonary vasculature is normal. Right retrocardiac nodular density may remain present. Pacemaker overlies left chest. IMPRESSION: 1. No acute pulmonary process radiographically apparent. 2. Stable findings from previous exam. Continued monitoring is recommended.
[2017-01-28 21:37] LABS: Troponin I 0.019 ng/mL (0.000-0.034)
[2017-01-28 22:02] VITALS: RESP 18
--- NOTE | 2017-01-28 22:11 | ED ---
Chest Pain HPI - General Chief Complaint: Chest Pain Stated Complaint: Chest Pain/Pacemaker went off Time Seen by Provider: 01/28/17 20:22 Source: patient, family Mode of arrival: wheelchair Limitations: no limitations - History of Present Illness Initial Comments: This patient is a 51-year-old man who states that tonight he was taking a shower probably about an hour to 2 ago and he found himself on the floor the shower. He recalls having shocking feeling in believes that his AICD has discharged. He did feel a brief fluttering in his chest earlier. The patient states that he feels like he is back at his baseline now. He is not having any chest pain currently. No dyspnea, diaphoresis, nausea or vomiting. MD Complaint: chest pain -: hour(s) Onset: other (While taking shower) Pain Location: left chest Severity: severe Quality: other Consistency: now resolved Worsens With: nothing Treatments Prior to Arrival: defibrillation - Related Data Home Medications Medication Instructions Recorded Confirmed Budesonide-Formot 160-4.5 Mcg 2 puff INHALATION RT-DAILY 11/04/14 01/28/17 [Symbicort 160-4.5 Mcg Inhaler] Furosemide [Lasix] 40 mg PO DAILY PRN 10/12/15 01/28/17 Spironolactone [Aldactone] 25 mg PO DAILY 10/12/15 01/28/17 metFORMIN HCL [Glucophage] 500 mg PO DAILY 10/12/15 01/28/17 Metoprolol Succinate (ER) [Toprol 100 mg PO DAILY 10/11/16 01/28/17 Xl] Sertraline HCl [Zoloft] 100 mg PO DAILY 10/11/16 01/28/17 Sacubitril/Valsartan [Entresto 24 1 tab PO DAILY 10/25/16 01/28/17 mg-26 mg Tablet] Apixaban [Eliquis] 5 mg PO DAILY 11/23/16 01/28/17 busPIRone HCL [Buspar] 7.5 mg PO DAILY 01/22/17 01/28/17 Gabapentin [Neurontin] 300 mg PO DAILY 01/28/17 01/28/17 Tiotropium Eugene [Spiriva 1 puff INHALATION RT-DAILY 01/28/17 01/28/17 Respimat] Previous Rx's Medication Instructions Recorded traMADol HCL [Ultram] 50 mg PO BID PRN #60 tablet 01/22/17 Magnesium Oxide 400 mg PO DAILY #20 tablet 01/28/17 Allergies Allergy/AdvReac Type Severity Reaction Status Date / Time No Known Allergies Allergy Verified 01/28/17 21:30 Review of Systems ROS Statement: Those systems with pertinent positive or pertinent negative responses have been documented in the HPI. ROS Other: All systems not noted in ROS Statement are negative. Constitutional: Denies: fever, chills Respiratory: Denies: cough, dyspnea, wheezes Cardiovascular: Denies: chest pain, palpitations, orthopnea, edema Gastrointestinal: Denies: abdominal pain, nausea, vomiting, diarrhea, melena, hematochezia Genitourinary: Denies: dysuria, hematuria Musculoskeletal: Denies: back pain Skin: Denies: rash Neurological: Denies: headache, weakness, numbness EKG Findings - EKG Results: EKG: interpreted by ERMD, sinus rhythm (With occasional PVC and PACs. Rate approximately 95 bpm) - Blocks, [place], Hypertrophy, ST Abn: AV and intraventricular conduction: left bundle branch block (fixed/intermittent , complete/incomplete) QRS axis and voltage: left axis deviation (-30 to -90) Past Medical History Past Medical History: Asthma, Heart Failure, COPD, Diabetes Mellitus, Hypertension, Sleep Apnea/CPAP/BIPAP Additional Past Medical History / Comment(s): uses c-pap machine History of Any Multi-Drug Resistant Organisms: MRSA Date of last positivie culture/infection: 10/19/15 MDRO Source:: LEFT LEG Past Surgical History: AICD, Heart Catheterization, Pacemaker Additional Past Surgical History / Comment(s): TEETH EXTRACTIONS, pain procedures, Biotronik AICD Past Anesthesia/Blood Transfusion Reactions: No Reported Reaction Type of Cardiac Device: AICD Device Placement Date:: 2015 Past Psychological History: Anxiety Smoking Status: Current every day smoker Past Alcohol Use History: Occasional Past Drug Use History: None Reported - Past Family History Father History Unknown: Yes Mother Family Medical History: Diabetes Mellitus General Exam Limitations: no limitations General appearance: alert, in no apparent distress Head exam: Present: atraumatic, normocephalic Eye exam: Present: normal appearance. Absent: scleral icterus, conjunctival injection Neck exam: Present: normal inspection Respiratory exam: Present: normal lung sounds bilaterally. Absent: respiratory distress, wheezes, rales, rhonchi, stridor, chest wall tenderness Cardiovascular Exam: Present: regular rate, normal rhythm, normal heart sounds. Absent: systolic murmur, diastolic murmur, rubs, gallop GI/Abdominal exam: Present: soft. Absent: distended, tenderness, guarding, rebound, rigid Extremities exam: Present: normal inspection, normal capillary refill. Absent: pedal edema, calf tenderness Back exam: Present: normal inspection. Absent: CVA tenderness (R), CVA tenderness (L) Neurological exam: Present: alert Skin exam: Present: warm, dry, intact, normal color. Absent: rash Course Vital Signs 01/28/17 01/28/17 01/28/17 20:09 21:09 21:21 Temperature 97.1 F L Pulse Rate 51 L 91 Respiratory 20 18 20 Rate Blood Pressure 155/98 168/84 O2 Sat by Pulse 98 Oximetry 01/28/17 01/28/17 22:00 22:25 Temperature 98 F Pulse Rate 100 70 Respiratory 18 18 Rate Blood Pressure 128/75 125/65 O2 Sat by Pulse 98 98 Oximetry Chest Pain MDM - MDM I was summoned to the room because the patient's had decided that he was leaving. I discussed that I would like to have him admitted to be seen by the elementary school reading teacher and have his device interrogated, the patient stated he was leaving. He does understand risk of sudden cardiac and also a permanent disability. Return parameters discussed. Disposition Clinical Impression: Defibrillator discharge Disposition: Left Against Medical Advice Condition: Undetermined Prescriptions: Magnesium Oxide 400 mg PO DAILY #20 tablet Referrals: Marya Crooks MD [Primary Care Provider] - 1-2 days
[2017-01-28 22:26] VITALS: BP 125/65; PULSE 70; TEMP 98
== END 2017-01-28 22:25 | disposition left against medical advice (07) ==
LOC: EC 20:07
DX: T82.198A Other mechanical complication of other cardiac electronic device, initial encounter (principal); J44.9 Chronic obstructive pulmonary disease, unspecified; E11.9 Type 2 diabetes mellitus without complications; I11.0 Hypertensive heart disease with heart failure; I50.9 Heart failure, unspecified; F41.9 Anxiety disorder, unspecified; F17.200 Nicotine dependence, unspecified, uncomplicated; Z86.14 Personal history of Methicillin resistant Staphylococcus aureus infection; Z79.01 Long term (current) use of anticoagulants; Z79.51 Long term (current) use of inhaled steroids; Z79.84 Long term (current) use of oral hypoglycemic drugs; Z79.899 Other long term (current) drug therapy
CPT/HCPCS: 36415; 93005; 80053; 82550; 82553; 83735; 84484; 85025; 85610; 85730; 71010; 99285; 96374; J2270

== ENCOUNTER → 2017-03-20 | Outpatient (CLI) | payer OTHER ==
--- NOTE | 2017-03-20 15:42 | P.PN ---
Subjective Progress Note Date: 03/20/17 This is follow-up visit for this patient with a history of severe and chronic low back pain secondary to lumbar degenerative disc diseases , lumbar spondylosis with facet arthropathy, we have done ,interventional pain management injection,, and a steroid injection and he had benefit for 1 day only , the we have done radiofrequency ablation of the medial branch lumbar area , with good result with the radiofrequency Patients currently on 1-Neurontin 300 mg twice a 2- celebrex 200 mg daily 3-Ultram 50 mg twice a day when necessary Patient denies any side effects of the medication, denies excessive drowsiness or sleepiness, denies suicidal ideation, and reports that the current pain medication is NOT helping To control the pain and improve activity of daily living Patient denies any motor or sensory deficit , patient denies any fever or night sweats, denies any change in the bowel movements or urination Physical Examinations : 1-Constitutiona : Cooperative , not in acute distress . 2-HEENT : nech ; supple , no Lymphadenopathy , no Thyromegaly , normal thyroid size . eyes : no ptosis , no icterus, no photophobia . ENT : normal of hearing , normal oropharynx , no Thrush . 3- Respiratory : Chest clear to auscultations Bilaterally , no wheezing , no Rhonchi . 4- Cardiovascular : regular rate and rhythem , S1 , S2 , no S3 , no S4. 5- Gastrointestinal : abdomen soft no tenderness , bowel sounds positive all four quadrents , no organomegally . 6- Genitourinary : Defferred . 7- neurologic : Cranial nerve II to XII intact , no focal neurological deffecit . 8-psychatric : alert , oriented X 3 , appropriate affect , intact judgment and insight . 9-Lymphatic : no Lymphadenopathy . 10- musculoskeltal : exams of the Lumber spine = motor strength lower extremities ,thigh and legs .5/5 deep tendon reflexes : normal Knee Jerk , normal ankle Jerk . lumber facet Loading Test positive strait leg raising test positive at 30 degree , RT ,LT , Fabere test positive RT and positive LT . Range of motion: Range of motion in flexion of the lumbar spine 30 degrees Range of motion range of motion of extension of the lumbar spine 10 Sever tenderness over the Sacroiliac joint on the Right , and Left side Assessment and plan = Chronic low back pain secondary to lumbar degenerative disc disease , lumbar spondylosis with facet arthropathy without myelopathy , chronic and current use of high-risk medication (Opioids). The patient was counseled about risk of opioid use, psychological risk associated with opioids and was orally counseled to not overuse , divert,or sell dictations to take medications as prescribed only , and to restore medication in safe location , and the patient counseled against driving while using narcotic medications, and also not to use alcohol or any illicit recreational drugs, the patient's verbalized understanding that the lack of compliance will result in failure to renew narcotic prescription and possible discharge from the clinic - diagnoses, prognosis, and treatment options including but not limited to physical therapy, surgical interventions, interventional therapies , and medication management including narcotics and adjuvant medication were discussed with the patient and all the questions answered Recommend increasing Neurontin to 300 mg every 8 hours , days Ultram 50 mg every 8 hours dispense 90 with 1 refill , continue Celebrex 200 mg daily dispense 30 with one refill He could benefit from repeat radiofrequency ablation of the medial branch lumbar area Objective - Vital Signs Vital signs: Vital Signs Temp 97.6 F 03/20/17 14:06 Pulse 65 03/20/17 14:06 Resp 16 03/20/17 14:06 BP 134/87 03/20/17 14:06 Pulse Ox 96 03/20/17 14:06 Intake & Output 03/19/17 03/20/17 03/20/17 18:59 06:59 18:59 Weight 183.705 kg
[2017-03-21 23:05] VITALS: BP 134/87; PULSE 65; RESP 16; TEMP 97.6
== END | disposition home or self-care (01) ==
LOC: PNWHC3 13:52
PROVIDERS: ATTEND Specialist
DX: M51.36 Other intervertebral disc degeneration, lumbar region (principal); M47.816 Spondylosis without myelopathy or radiculopathy, lumbar region; M46.86 Other specified inflammatory spondylopathies, lumbar region; Z79.52 Long term (current) use of systemic steroids; Z79.1 Long term (current) use of non-steroidal anti-inflammatories (NSAID); Z79.899 Other long term (current) drug therapy; Z79.891 Long term (current) use of opiate analgesic
CPT/HCPCS: 99211

== ENCOUNTER 2017-04-17 08:25 | Day surgery (SDC) | payer OTHER ==
[2017-04-16 10:51] VITALS: BMI 50.0
[2017-04-17] MEDS ORDERED: LACTATED RINGERS 1,000 ML IV SCH (08:45)
[2017-04-17] MEDS ORDERED: LIDOCAINE 1% 20 ML VIAL (10MG/ML) FOR IV START INTRADERMA ONE (08:54)
[2017-04-17 08:59] VITALS: TEMP 97.4
[2017-04-17 09:22] LABS: Glucose,Whole Blood 136 mg/dL (75-99)
--- NOTE | 2017-04-17 09:55 | P.PN ---
Progress Note - Text Progress Note Date: 04/17/17 After IV started and sedation given, no procedure was performed today due to lack of equipment (specifically 150-mm RFA probes). Will reschedule patient for left lumbar RFA when equipment available.
[2017-04-17 10:09] VITALS: BP 124/76; PULSE 87; RESP 20
[2017-04-17] MEDS ORDERED: IV FLUID CONTINUATION 1,000 ML IV ONE (10:10)
== END 2017-04-17 10:17 | disposition home or self-care (01) ==
LOC: ORPAIN 08:25
PROVIDERS: ATTEND Anesthesiology
DX: G89.29 Other chronic pain (principal); M51.36 Other intervertebral disc degeneration, lumbar region; M47.816 Spondylosis without myelopathy or radiculopathy, lumbar region; Z53.8 Procedure and treatment not carried out for other reasons; Z79.891 Long term (current) use of opiate analgesic; Z79.899 Other long term (current) drug therapy; Z79.01 Long term (current) use of anticoagulants
CPT/HCPCS: 64635; 64636

== ENCOUNTER 2017-04-23 11:26 | Day surgery (SDC) | payer OTHER ==
[2017-04-19 09:08] VITALS: BMI 51.2
[2017-04-23 09:36] VITALS: RESP 18; TEMP 96.1
[2017-04-23 09:48] LABS: Glucose,Whole Blood 140 mg/dL (75-99)
--- NOTE | 2017-04-23 10:39 | P.PCN ---
Date of Procedure: 04/23/17 Procedure(s) Performed: PREOPERATIVE DIAGNOSIS: 1-Lumbar Spondylosis with Facet Arthropathy without myelopathy. 2- Lumber degenerative disc disease POSTOPERATIVE DIAGNOSIS: 1- Lumbar Spondylosis with Facet Arthropathy without myelopathy. 2- Lumber degenerative disc disease PROCEDURES : Left Radiofrequency thermocoagulation, L3-L4, L4-L5, and L5-S1 medial branch, with fluoroscopic guidance ANESTHESIA: Moderate sedation with intravenous versed 2 mg and fentaneyl 150 mcg and local infiltration with lidocaine 1% 6 ml EBL: Minimal PROCEDURE INDICATION: The patient with low back pain secondary to lumbar facet arthropathy who had more than 50% relief of her pain with previous diagnostic lumbar medial branch block with bupivacaine. PROCEDURE DESCRIPTION / TECHNIQUE: The patient was seen and identified in the preoperative area. Risks, benefits, complications, including but not limited to risk of infection ,bleeding , allergic reactions to the medications and no complete pain releife , and alternatives were discussed with the patient, the patient agreed to proceed with the procedure and signed the consent. IV was started. Vital signs remained stable throughout the procedure. Patient was taken to the OR and time out was completed. The patient was placed in the prone position on the procedure table. The lumber area was prepped and draped in the usual sterile fashion. . Vital signs were closely monitored during the procedure .IV sedation was used during the procedure to decrease patients anxiety. Using AP and then oblique fluoroscopy, the ``eye of the Ron dog corresponding to the connection between the superior and transverse articular processes of left L3, L4, and L5 were identified, marked, and localized with 1 % lidocaine. Subsequently, a 18 guage 150-mm radiofrequency cannula with a 10- mm active tip was advanced guided by fluoroscopy to each of the ``eyes of the Ron dog at left L3, L4, and L5. Each site then underwent sensory testing at 50 Hz and 0 to 1 volt and motor testing at 2.5 Hz and 0 to 3 volt with local stimulation, but no radicular symptoms down the legs. Thereafter the left L3-4, L4-5, and L5-S1 sites underwent radiofrequency thermocoagulation at 80 degrees celsius for 90 seconds after injecting 0.5 ml of PF lidocaine 1%. then After the thermocoagulation done , 1 ml of the block solution containing Kenalog 40 mg and 3 ml of marain 0.5% was injected at the left L3-4 , L4-5 , and L5-S1, levels after negative aspiration of CSF and blood and with no paresthesias. Cannulas were retracted while injecting lidocaine 1% until the needle is out. At the end of the procedure, the skin was cleansed and bandages were applied. COMPLICATIONS: No acute complications. DISPOSITION / PLANS: The patient was placed in a supine position and transferred to the recovery area in a stable condition for observation and was discharged from the recovery room after meeting discharge criteria. Home discharge instructions given to the patient by the staff. The patient was reexamined prior to discharge. The patient will schedule a follow up in the clinic in 2-4 weeks.
--- NOTE | 2017-04-23 10:43 | FL ---
EXAMINATION TYPE: FL guided pain mgmt statistic DATE OF EXAM: 04/23/2017 HISTORY: Flouroscopy time 26 seconds of fluoroscopy provided. IMPRESSION: 1. Fluoroscopy time.
[2017-04-23 11:04] VITALS: BP 110/76; PULSE 92
[~2017-04-23 11:26] MED LIST changes: +IV FLUID CONTINUATION 700 ML IV ONE; +LACTATED RINGERS 1,000 ML IV ONE; -LACTATED RINGERS 1,000 ML IV SCH; +LIDOCAINE 1% 20 ML VIAL (10MG/ML) FOR IV START INTRADERMA ONE
== END 2017-04-23 11:31 | disposition home or self-care (01) ==
LOC: ORPAIN 11:26
PROVIDERS: ATTEND Specialist
DX: M51.36 Other intervertebral disc degeneration, lumbar region (principal); M47.816 Spondylosis without myelopathy or radiculopathy, lumbar region; I10 Essential (primary) hypertension; E11.9 Type 2 diabetes mellitus without complications
CPT/HCPCS: 64635; 64636 ×2; J2250; J3301; J3010; 99152; 99153

== ENCOUNTER 2017-05-17 08:13 | Day surgery (SDC) | payer OTHER ==
[2017-05-15 15:29] VITALS: BMI 51.0
[~2017-05-17 08:13] MED LIST changes: -IV FLUID CONTINUATION 700 ML IV ONE; -LACTATED RINGERS 1,000 ML IV ONE; +LACTATED RINGERS 1,000 ML IV SCH; -LIDOCAINE 1% 20 ML VIAL (10MG/ML) FOR IV START INTRADERMA ONE
[2017-05-17 08:46] LABS: Glucose,Whole Blood 119 mg/dL (75-99)
[2017-05-17 08:47] VITALS: TEMP 97.7
--- NOTE | 2017-05-17 10:33 | P.PCN ---
Date of Procedure: 05/17/17 Procedure(s) Performed: PREOPERATIVE DIAGNOSIS: 1-Lumbar Spondylosis with Facet Arthropathy without myelopathy. 2- Lumber degenerative disc disease. POSTOPERATIVE DIAGNOSIS: 1- Lumbar Spondylosis with Facet Arthropathy without myelopathy. 2- Lumber degenerative disc disease. PROCEDURES : Right Radiofrequency thermocoagulation, L3-L4, L4-L5, and L5-S1 medial branch, with fluoroscopic guidance ANESTHESIA: Moderate sedation with intravenous versed 4 mg and fentaneyl 200 mcg and local infiltration with lidocaine 1% 6 ml EBL: Minimal PROCEDURE INDICATION: The patient with low back pain secondary to lumbar facet arthropathy who had more than 50% relief of her pain with previous diagnostic lumbar medial branch block with bupivacaine. PROCEDURE DESCRIPTION / TECHNIQUE: The patient was seen and identified in the preoperative area. Risks, benefits, complications, including but not limited to risk of infection ,bleeding , allergic reactions to the medications and no complete pain releife , and alternatives were discussed with the patient, the patient agreed to proceed with the procedure and signed the consent. IV was started. Vital signs remained stable throughout the procedure. Patient was taken to the OR and time out was completed. The patient was placed in the prone position on the procedure table. The lumber area was prepped and draped in the usual sterile fashion. . Vital signs were closely monitored during the procedure .IV sedation was used during the procedure to decrease patients anxiety. Using AP and then oblique fluoroscopy, the ``eye of the Ron dog corresponding to the connection between the superior and transverse articular processes of right L3, L4, and L5 were identified, marked, and localized with 1 % lidocaine. Subsequently, a 18 [id number]-yl radiofrequency cannula with a 10- mm active tip was advanced guided by fluoroscopy to each of the ``eyes of the Ron dog at right L3, L4, and L5. Each site then underwent sensory testing at 50 Hz and 0 to 1 volt and motor testing at 2.5 Hz and 0 to 3 volt with local stimulation, but no radicular symptoms down the legs. Thereafter the right L3-4, L4-5, and L5-S1 sites underwent radiofrequency thermocoagulation at 80 degrees celsius for 90 seconds after injecting 0.5 ml of PF lidocaine 1%. then After the thermocoagulation done , 1 ml of the block solution containing Kenalog 40 mg and 3 ml of marcain 0.5% was injected at the right L3- 4 , L4-5 , and L5-S1, levels after negative aspiration of CSF and blood and with no paresthesias. Cannulas were retracted while injecting lidocaine 1% until the needle is out. At the end of the procedure, the skin was cleansed and bandages were applied. COMPLICATIONS: No acute complications. DISPOSITION / PLANS: The patient was placed in a supine position and transferred to the recovery area in a stable condition for observation and was discharged from the recovery room after meeting discharge criteria. Home discharge instructions given to the patient by the staff. The patient was reexamined prior to discharge. The patient will schedule a follow up in the clinic in 2-4 weeks.
[2017-05-17] MEDS ORDERED: IV FLUID CONTINUATION 1,000 ML IV ONE (10:46)
[2017-05-17 10:53] VITALS: RESP 18
[2017-05-17 11:08] VITALS: BP 130/78; PULSE 60
--- NOTE | 2017-05-17 14:15 | FL ---
EXAMINATION TYPE: FL guided pain mgmt statistic DATE OF EXAM: 05/17/2017 HISTORY: Pain 1 min 13 sec fl-3 images
== END 2017-05-17 11:33 | disposition home or self-care (01) ==
LOC: ORPAIN 08:13
PROVIDERS: ATTEND Specialist
DX: M47.816 Spondylosis without myelopathy or radiculopathy, lumbar region (principal); M51.36 Other intervertebral disc degeneration, lumbar region; I10 Essential (primary) hypertension
CPT/HCPCS: 64635; 64636 ×2; J2250; J3301; J3010; 99152; 99153

== ENCOUNTER → 2017-06-19 | Outpatient (CLI) | payer OTHER ==
[2017-06-19 14:51] VITALS: BP 136/83; PULSE 48; RESP 18; TEMP 98.5
--- NOTE | 2017-06-19 19:20 | P.PN ---
Subjective Progress Note Date: 06/19/17 This is follow-up visit for this patient with a history of severe and chronic low back pain secondary to lumbar degenerative disc disease, lumbar facet arthropathy, we have done Radiofrequency ablation of the medial branch lumbar area and this helped significantly , his pain improved , and he is able to do all activities of daily livings patient currently on Ultram 50 mg every 8 hours when necessary , Neurontin 300 mg twice a day Patient denies any side effects of the medication, denies excessive drowsiness or sleepiness, denies suicidal ideation, and reports that the current pain medication is helping To control the pain and improve activity of daily living . Patient denies any motor or sensory deficit, denies change in bowel movement or urination, patient denies any fever or night sweats and patient here for follow-up visit and medication refill Objective - Vital Signs Vital signs: Vital Signs Temp 98.5 F 06/19/17 14:43 Pulse 48 L 06/19/17 14:43 Resp 18 06/19/17 14:43 BP 136/83 06/19/17 14:43 Pulse Ox Intake & Output 06/19/17 06/19/17 06/20/17 06:59 18:59 06:59 Weight 185.973 kg - Exam Physical Examinations : 1-Constitutiona : Cooperative , not in acute distress . 2-HEENT : nech ; supple , no Lymphadenopathy , normal thyroid size . eyes : no ptosis , no icterus, no photophobia . ENT : normal of hearing , normal oropharynx , no Thrush . 3- Respiratory : Chest clear to auscultations Bilaterally , no wheezing , no Rhonchi . 4- Cardiovascular : regular rate and rhythem , S1 , S2 , no S3 , no S4. 5- Gastrointestinal : abdomen soft no tenderness , bowel sounds positive all four quadrents , no organomegally . 6- Genitourinary : Defferred . 7- neurologic : Cranial nerve II to XII intact , no focal neurological deffecit . 8-psychatric : alert , oriented X 3 , appropriate affect , intact judgment and insight . 9-Lymphatic : no Lymphadenopathy . 10- musculoskeltal : , Lumber spine = normal moter stegnth lower extremities ,thigh and legs .5/5 Assessment and Plan Plan: Assessment and plan= chronic low back pain secondary to lumbar degenerative disc disease , lumbar spondylosis with lumbar facet arthropathy , Pain improved after the radiofrequency ablation of the medial branch lumbar area chronic and current use of high-risk medication (opioids) Patient denies any side effects of the current pain medication and the current treatment/medication ML and the patient to do activity of daily living , Diagnoses, prognosis, treatment options, including but not limited to physical therapy, medication management, interventional therapies, and surgery, were discussed with the patient All the questions answered Patient signed the narcotic agreement, and he was orally counseled, not to overuse, not to abuse, not to Divert , not tp sell pain medication, and to take it as prescribed only, Patient was counseled not to drive or operate heavy equipment while using narcotic medication, and advised not to use alcohol or any Illicit drugs while using the narcotis, the patient's verbalized understanding that lack of compliance with any of the above instructions and will likely to cause discharge from the pain service, not to renew his narcotic prescriptions Medication managements= patient will be given prescription refills for Neurontin 300 mg twice a day dispense 60 with 1 refill, and tramadol 50 mg 3 times when necessary a day dispense 90 with 1 refill, and he will follow up with the pain clinic in 2 months , Time with Patient: Less than 30
== END | disposition home or self-care (01) ==
LOC: PNWHC3 13:59
PROVIDERS: ATTEND Specialist
DX: G89.29 Other chronic pain (principal); M51.36 Other intervertebral disc degeneration, lumbar region; M47.816 Spondylosis without myelopathy or radiculopathy, lumbar region; M46.96 Unspecified inflammatory spondylopathy, lumbar region; Z79.891 Long term (current) use of opiate analgesic; Z79.899 Other long term (current) drug therapy
CPT/HCPCS: 99211

== ENCOUNTER → 2017-06-27 | Outpatient (CLI) | payer OTHER ==
[2017-06-27 16:10] LABS: Blood Urea Nitrogen 11 mg/dL (9-20)
--- NOTE | 2017-06-27 17:31 | CT ---
EXAMINATION TYPE: CT soft tissue neck w con DATE OF EXAM: 06/27/2017 4:37 PM COMPARISON: NONE HISTORY: left arm numbness CT DLP: 742 mGycm Automated exposure control for dose reduction was used. CONTRAST: CT scan of the neck is performed following with IV Contrast, patient injected with 100 mL of Isovue 3 00. Axial images are obtained, coronal and sagittal reformatted images are reviewed. FINDINGS: Evaluation of the superior mediastinum is limited due to obesity. Thyroid gland appears symmetric. Th ere appears to be normal branching pattern of the great vessels on the aortic arch. There is normal c ontrast opacification of the carotid arteries and jugular veins. There is bilateral opacification of the vertebral arteries. There is normal appearing epiglottis. There is slight increased asymmetric soft tissue density on the left side of the hypopharynx compared to right. This measures 12 mm in thickness at the level of the aryepiglottic folds. The trachea visualized appears normal. Submandibular salivary glands are symmetric. Parotid glands are symmetric. There is mucosal thickenin g in the left maxillary sinus with some osteosclerosis. There is no evidence of an orbital mass. IMPRESSION: Left maxillary chronic sinusitis. Hypopharyngeal asymmetric density. The possibility of a tumor should be considered and laryngoscopy i s recommended for further evaluation if clinically indicated. No significant cervical adenopathy seen . Spondylotic changes noted at C5-6. The exam is limited due to the patient's size. There is probably some degree of neural foraminal stenosis bilaterally at C5-6 due to uncovertebral spurring.
== END ==
LOC: RAD 13:47
PROVIDERS: ATTEND Psychiatry & Neurology Neurology
DX: M47.812 Spondylosis without myelopathy or radiculopathy, cervical region (principal); J39.2 Other diseases of pharynx
CPT/HCPCS: 82565; 84520; 70491; 36415; Q9967

== ENCOUNTER 2017-07-09 06:31 | Day surgery (SDC) | payer OTHER ==
[2017-07-04 15:48] VITALS: BMI 51.1
[~2017-07-09 06:31] MED LIST changes: +LIDOCAINE 1% 20 ML VIAL (10MG/ML) FOR IV START INTRADERMA PRN; +MIDAZOLAM 2 MG/2 ML VIAL IV PRN; +SODIUM CHLORIDE 0.9% 1,000 ML IV SCH
[2017-07-09 07:31] LABS: Glucose,Whole Blood 115 mg/dL (75-99)
[2017-07-09 07:40] LABS: Basophils # (A) 0.1 k/uL (0-0.2); Basophils % (A) 1 %; Eosinophils # (A) 0.4 k/uL (0-0.7); Eosinophils % (A) 4 %; HCT 47.7 % (39.0-53.0); HGB 15.1 gm/dL (13.0-17.5); Lymphocytes # (A) 3.1 k/uL (1.0-4.8); Lymphocytes % (A) 33 %; MCH 27.6 pg (25.0-35.0); MCHC 31.6 g/dL (31.0-37.0); MCV 87.3 fL (80.0-100.0); Mean Platelet Volume 8.2; Monocytes # (A) 0.5 k/uL (0-1.0); Monocytes % (A) 5 %; Neutrophils # (A) 5.2 k/uL (1.3-7.7); Neutrophils % (A) 56 %; Platelet Count 261 k/uL (150-450); RBC 5.47 m/uL (4.30-5.90); RDW 13.9 % (11.5-15.5); WBC 9.2 k/uL (3.8-10.6)
[2017-07-09] MEDS ORDERED: PHENYLEPHRINE-0.9% NACL SYG 1 MG/10 ML SYRINGE ONE (07:48)
[2017-07-09] MEDS ORDERED: KETOROLAC 30 MG/ML 1 ML VIAL ONE (07:48)
[2017-07-09] MEDS ORDERED: ONDANSETRON 4 MG/2 ML VIAL ONE (07:48)
[2017-07-09] MEDS ORDERED: fentaNYL (PF) 50 MCG/ML 2 ML AMP ONE (07:48)
[2017-07-09] MEDS ORDERED: PROPOFOL 10 MG/ML 20 ML VIAL IV ONE (07:48)
[2017-07-09] MEDS ORDERED: ISOPROTERENOL 200 MCG/ML 5 ML AMP IV ONE (07:48)
[2017-07-09] MEDS ORDERED: DEXAMETHASONE SOD PHOS (MDV) 100 MG/10 ML VIAL ONE (07:48)
[2017-07-09] MEDS ORDERED: NEOSTIGMINE 1 MG/ML 10 ML VIAL ONE (07:48)
[2017-07-09] MEDS ORDERED: HEPARIN SODIUM,PORCINE 5,000 UNIT/ML 1 ML VIAL ONE (07:48)
[2017-07-09] MEDS ORDERED: MIDAZOLAM 2 MG/2 ML VIAL ONE (07:48)
[2017-07-09] MEDS ORDERED: SUCCINYLCHOLINE CHLORIDE VIAL 200 MG/10 ML VIAL IV ONE (07:48)
[2017-07-09] MEDS ORDERED: ROCURONIUM BROMIDE 10 MG/ML 10 ML VIAL IV ONE (07:48)
[2017-07-09] MEDS ORDERED: ePHEDrine SULFATE/0.9% NACL/PF 50 MG/5 ML SYRINGE IV ONE (07:48)
[2017-07-09] MEDS ORDERED: GLYCOPYRROLATE 0.2 MG/ML 2 ML VIAL ONE (07:48)
[2017-07-09] MEDS ORDERED: ceFAZolin IN SWFI 2 GM/20 ML SYRINGE IVP STA (07:59)
[2017-07-09] MEDS ORDERED: LIDOCAINE 2% INJ 20 MG/ML SQ ONE (08:52)
[2017-07-09] MEDS ORDERED: HEPARIN SODIUM (1,000 UNIT/ML) 1,000 UNIT in SODIUM CHLORIDE 0.9% 1,000 ML IRRIGATION ONE (10:09)
[2017-07-09] MEDS ORDERED: LACTATED RINGERS 1,000 ML IV ONE ×2 (11:18)
[2017-07-09] MEDS ORDERED: ACETAMINOPHEN TAB 325 MG TAB PO PRN (12:39)
[2017-07-09] MEDS ORDERED: ACETAMINOPHEN IV (For NPO) 1,000 MG in EMPTY BAG 1 BAG IVPB ONE (12:39)
[2017-07-09 12:50] LABS: Anion Gap 10 mmol/L; Blood Urea Nitrogen 13 mg/dL (9-20); Calcium 8.4 mg/dL (8.4-10.2); Carbon Dioxide 29 mmol/L (22-30); Chloride 105 mmol/L (98-107); Glucose 143 mg/dL (74-99); Potassium 4.1 mmol/L (3.5-5.1); Sodium 144 mmol/L (137-145)
--- NOTE | 2017-07-09 14:02 | CE ---
CARDIAC ELECTROPHYSIOLOGY REPORT Walker Rosen is a 51-year-old male patient who has had recurrent supraventricular tachycardia, likely atrial tachycardia or atrial flutter with RVR resulting in ICD shocks. He had recurrent episodes of tachycardia and recently when he received an ICD shock. Therefore, he is brought in for diagnostic EP study and appropriate radiofrequency ablation. Patient is brought to the EP lab in a fasting state. Written informed consent was obtained prior to the procedure. The procedure was performed under general anesthesia. IV antibiotics were administered. A dual-chamber ICD was interrogated and reprogrammed to VVI 40 and ICD therapies were turned off. At the end of the procedure, DDD pacing with CLS was programmed 50-130 ppm and ICD therapies are turned on. Venous sheaths were placed in the right and left femoral veins. Two venous sheaths in the left, two venous sheaths in the right vein. Diagnostic catheters were placed in the heart (high right atrial catheter, HIS bundle catheter, RV catheter and coronary sinus catheter). Sinus cycle length was 843 milliseconds, QRS 133 milliseconds, ND interval 118 milliseconds, QT interval 431 milliseconds. AH interval 80 milliseconds, HV interval 48 milliseconds. Sinus node recovery times at 600, 500 and 400 millisecond are 1036, 1031, and 1209 milliseconds. Corresponding corrected sinus node recovery times were within normal limits. There was no evidence for slow pathway conduction. No delta waves are noted. AV node Wenckebach block 340 milliseconds, VA Wenckebach block greater than 650 milliseconds at baseline. Atrial extra stimulation was performed from the high right atrium. No SVT was induced. On Isuprel, AV node Wenckebach was 310 milliseconds, AV node Wenckebach block from the coronary sinus was 290 milliseconds. Short bursts of atrial tachycardia at a cycle length of about 240 milliseconds was induced. Subsequently, with atrial extra stimulation from the high right atrium, sustained SVT was induced on high-dose Isuprel. The stimulation did not induce any tachycardia either from the coronary sinus of the high right atrium. With sustained tachycardia, a mapping and ablation catheter was placed. An intracardiac echo catheter was placed. A 3D mapping was performed in the right atrium and electro anatomic map was made and a counter-clockwise rhythm around the tricuspid anulus was defined. Entrainment mapping confirmed isthmus dependency. RF ablation was performed within the isthmus and this resulted in termination of the tachycardia. Thereafter in sinus rhythm, a detailed 3D electro anatomic map of the right atrial caval tricuspid isthmus was made. Later, RF ablation was performed from the tricuspid anulus down to the IVC. The patient had a large pouch. This was carefully ablated and a complete anatomic line was made. Following that, differential pacing improved in complete bidirectional block. The isthmus conduction time was about 180 milliseconds, split potentials along the line were about 118 milliseconds while the isthmus conduction time in either direction was about 180 milliseconds, non capture was also noted along the RF line. All catheters were then removed and the end of the procedure and intracardiac echocardiography confirmed the absence of a pericardial effusion. Patient was extubated, sheaths were removed and [id number] sutures were applied in the groins. Patient tolerated the procedure well without any acute complications. RESULT: Diagnostic EP study revealing atrial flutter as a mechanism of his tachycardia that resulted in delivery of ICD shocks in the past. PLAN: Continue anticoagulation, continue cardiomyopathy medications. MMODL / IJN: [id number] /
--- NOTE | 2017-07-09 14:02 | LTR ---
DATE OF SERVICE: 07/09/2016 RE: Walker Rosen Dear Dr. Crooks; I had the pleasure of seeing Walker Rosen in electrophysiology followup. He is a patient of Dr. Cooley and yourself who has recurrent atrial tachycardia and received inappropriate ICD shocks on account of this. I performed a diagnostic EP study and I was able to induce this tachycardia and proved that it was typical atrial flutter. Successful ablation was performed. He should now continue his anticoagulation. All other cardiomyopathy medications unchanged and follow up with you and Dr. Cooley as before. Thank you for entrusting me with the care of your patient. Warm regards. Sincerely, Johnny Harp MD MMKATHARINE / DEBBIEN: [id number] /
[2017-07-09] MEDS: HYDROcodone/APAP 5-325MG 1 EACH TAB PO PRN ×2 (14:45→21:58)
[2017-07-09] MEDS ORDERED: MORPHINE SULFATE 4 MG/0.8 ML SYRINGE (INJ) IVP PRN ×2 (15:39)
[2017-07-09 18:15] LABS: Glucose,Whole Blood 141 mg/dL (75-99)
[2017-07-09] MEDS: SYMBICORT 160-4.5 MCG INHALER INHALATION SCH (19:04)
[2017-07-09 20:37] LABS: Glucose,Whole Blood 151 mg/dL (75-99)
[2017-07-10 01:55] LABS: Hemoglobin A1C 6.7 % (4.0-6.0)
[2017-07-10] MEDS: HYDROcodone/APAP 5-325MG 1 EACH TAB PO PRN ×2 (05:34→09:11)
[2017-07-10 06:49] LABS: Glucose,Whole Blood 140 mg/dL (75-99)
[2017-07-10] MEDS ORDERED: MORPHINE ORAL SOLN 10 MG/5 ML CUP PO PRN ×2 (08:21)
[2017-07-10] MEDS: FUROSEMIDE 20 MG TAB PO SCH ×2 (08:46→08:49)
[2017-07-10] MEDS ORDERED: SPIRONOLACTONE 25 MG TAB PO SCH (09:00)
[2017-07-10] MEDS ORDERED: APIXABAN 5 MG TAB PO SCH (09:00)
[2017-07-10] MEDS ORDERED: GABAPENTIN 300 MG CAP PO SCH (09:00)
[2017-07-10] MEDS ORDERED: METOPROLOL SUCCINATE (ER) 100 MG TAB.ER.24H PO SCH (09:00)
[2017-07-10] MEDS ORDERED: SACUBITRIL/VALSARTAN 24 MG-26 MG TABLET PO SCH (09:00)
[2017-07-10] MEDS ORDERED: metFORMIN 500 MG TAB PO SCH (09:00)
[2017-07-10] MEDS ORDERED: SERTRALINE 100 MG TAB PO SCH (09:00)
[2017-07-10] MEDS: SYMBICORT 160-4.5 MCG INHALER INHALATION SCH (09:21)
[2017-07-10 12:03] VITALS: BP 160/97; PULSE 78; RESP 18; TEMP 97.9
[2017-07-10 12:39] LABS: Glucose,Whole Blood 120 mg/dL (75-99)
--- NOTE | 2017-07-10 13:31 | P.DS ---
Providers Attending physician: Johnny Harp Primary care physician: [facility] Course: Patient is doing well. He is sitting up at the edge of the bed. He has not had any groin problems. Breath sounds are clear. No rhonchi no crackles. Heart sounds are normal normal S1 normal S2 no murmurs or gallops no rub. No JVD Impression nonischemic cardio myopathy Congestive heart failure Dual-chamber ICD in the past Atrial flutter with RVR with inappropriate ICD shocks History of paroxysmal atrial fibrillation with RVR Inducible atrial flutter status post successful ablation yesterday Plan discharge home today Continue current medications without any changes and lifelong anticoagulation Device clinic follow-up today for a device check Discussed with the nurse Patient Condition at Discharge: Stable Plan - Discharge Summary Discharge Rx Participant: Yes New Discharge Prescriptions: Continue Budesonide-Formot 160-4.5 Mcg [Symbicort 160-4.5 Mcg Inhaler] 2 puff INHALATION RT-DAILY Spironolactone [Aldactone] 25 mg PO QAM metFORMIN HCL [Glucophage] 500 mg PO QAM Furosemide [Lasix] 20 mg PO QAM Metoprolol Succinate (ER) [Toprol XL] 300 mg PO QAM Sertraline HCl [Zoloft] 100 mg PO QAM Sacubitril/Valsartan [Entresto 24 mg-26 mg Tablet] 1 tab PO QAM Apixaban [Eliquis] 5 mg PO QAM busPIRone HCL [Buspar] 7.5 mg PO QAM Gabapentin [Neurontin] 300 mg PO QAM traMADol HCL [Ultram] 50 mg PO DAILY PRN PRN Reason: Moderate To Severe Pain Discharge Medication List Budesonide-Formot 160-4.5 Mcg [Symbicort 160-4.5 Mcg Inhaler] 2 puff INHALATION RT-DAILY 11/04/14 [History] Furosemide [Lasix] 20 mg PO QAM 10/12/15 [History] Spironolactone [Aldactone] 25 mg PO QAM 10/12/15 [History] metFORMIN HCL [Glucophage] 500 mg PO QAM 10/12/15 [History] Metoprolol Succinate (ER) [Toprol XL] 300 mg PO QAM 10/11/16 [History] Sertraline HCl [Zoloft] 100 mg PO QAM 10/11/16 [History] Sacubitril/Valsartan [Entresto 24 mg-26 mg Tablet] 1 tab PO QAM 10/25/16 [ History] Apixaban [Eliquis] 5 mg PO QAM 11/23/16 [History] busPIRone HCL [Buspar] 7.5 mg PO QAM 01/22/17 [History] Gabapentin [Neurontin] 300 mg PO QAM 04/19/17 [History] traMADol HCL [Ultram] 50 mg PO DAILY PRN 06/19/17 [History] Follow up Appointment(s)/Referral(s): Marya Crooks MD [Primary Care Provider] - 2 Weeks hCirag Cooley MD [STAFF PHYSICIAN] - 1 Week Activity/Diet/Wound Care/Special Instructions: Post EP study - Ablation instructions 1. Keep access sites dry for 2 days. 2. No heavy lifting or straining for 2 days. 3. Avoid bending the hips repeatedly for 2 days. 4. You may go up and down stairs slowly Call if the following is noted 1. Bleeding, increasing swelling or pain at the access sites. 2. Increasing chest discomfort, especially upon taking a deep breath. 3. Increasing shortness of breath, at rest or with exertion. 4. Undue cough / phlegm 5. Difficulty or pain while swallowing. 6. Pain or change in color in the extremities. 7. Fever, chills, rigors. 8. Increasing headache or neurologic symptoms. 9. Dizziness, fainting, palpitations Follow-up with Dr. Cooley in 1 week Follow-up with the device clinic in one week No changes in medications Continue anticoagulation lifelong Discharge Disposition: HOME SELF-CARE
== END 2017-07-10 14:25 | disposition home or self-care (01) ==
LOC: CATHEP 06:31 → 3OBS 12:36 → CATHEP 07-10 14:25
PROVIDERS: ATTEND Internal Medicine Clinical Cardiac Electrophysiology
DX: I47.1 Supraventricular tachycardia (principal); I48.92 Unspecified atrial flutter; I48.0 Paroxysmal atrial fibrillation; I42.8 Other cardiomyopathies; Z95.810 Presence of automatic (implantable) cardiac defibrillator; I49.5 Sick sinus syndrome; I11.0 Hypertensive heart disease with heart failure; I50.22 Chronic systolic (congestive) heart failure; Z87.891 Personal history of nicotine dependence; E66.01 Morbid (severe) obesity due to excess calories; J45.909 Unspecified asthma, uncomplicated; Z68.43 Body mass index [BMI] 50.0-59.9, adult; Z79.01 Long term (current) use of anticoagulants; Z79.84 Long term (current) use of oral hypoglycemic drugs; Z79.51 Long term (current) use of inhaled steroids; Z79.899 Other long term (current) drug therapy
CPT/HCPCS: 94640; 93623; 93662; 93613; 93653; 80048; 85025; 83036; C1894; C1769 ×2; C1893; C1730 ×2; C1732; J2001; J2250; J0330; J1644 ×2; J2710; J2405; J3010; J1885; J1100; J0131; J2370; J2704; J0690; J2270

== ENCOUNTER → 2017-08-14 | Outpatient (CLI) | payer OTHER ==
[2017-08-14 12:11] VITALS: BP 153/89; PULSE 62; RESP 18
--- NOTE | 2017-08-14 12:53 | P.PAINPG ---
Subjective Progress Note Date: 08/14/17 Principal diagnosis: Lumbar spondylosis; herniated nucleus pulposus; lumbar radiculopathy This is a very pleasant 51-year-old gentleman with a long-standing history of low back pain. He is undergone previous epidural steroid injections as well as medial branch nerve blocks and radiofrequency ablation. Many of these have helped him but they help has been very short-lived. He complains of intractable back pain today and is presented directly to discuss options. He denies bowel or bladder dysfunction. Objective - Vital Signs Vital signs: Vital Signs Temp Pulse 62 08/14/17 12:06 Resp 18 08/14/17 12:06 BP 153/89 08/14/17 12:06 Pulse Ox 96 08/14/17 12:06 Intake & Output 08/13/17 08/14/17 08/14/17 18:59 06:59 18:59 Weight 190.509 kg - Exam General: The patient is alert and oriented. Patient is not sedateded Patient is a question appropriately. Cardiac: Heart is regular in rate and rhythm Respiratory: Clear to auscultation. No audible wheezes. Abdomen: Soft nontender nondistended. Lower extremities: Strength is normal bilaterally. Sensation is normal bilaterally. Reflexes are preserved and symmetric bilaterally. Straight leg raise is negative bilaterally. He has a difficult time standing erect. He does walk in a slightly flexed position. He is tender to palpation over his lumbar facets bilaterally. Facet loading maneuvers are positive bilaterally. Assessment and Plan (1) Lumbar spondylosis Current Visit: Yes Status: Acute Code(s): M47.816 - SPONDYLOSIS W/O MYELOPATHY OR RADICULOPATHY, LUMBAR REGION SNOMED Code(s): 978300084 (2) Lumbar radiculopathy Current Visit: Yes Status: Acute Code(s): M54.16 - RADICULOPATHY, LUMBAR REGION SNOMED Code(s): 858874618 Plan: Plan of Care 1. Medications: We will increase the patient's gabapentin to 600 mg by mouth twice a day in a stepwise fashion. I will renew his tramadol prescription today. He did sign the [place] start talking form today. I have reviewed the patient's MAPS report and it reveals expected results. Patient has signed an opiate agreement as well as opiate consent for treatment in our clinic. They understand the risks and benefits of opiate medications. They are aware of the potential for addiction. 2. Interventions: The patient is currently taking a blood thinner and therefore is currently not a candidate for interventional therapy. In the past, he has undergone previous interventional procedures without any significant long-term benefit. 3. Referrals: I may refer the patient with orthopedics surgeon pending the results of his computed tomography scan. 4. Testing: He was referred for a repeat CAT scan of his lumbar spine. He had this done nearly 2 years ago. At that point time he had significant stress reaction at the pars locations. I'm concerned that he may have fractures at these locations. He does have a history of a fall 1 year ago. 5. Psychological: None PQRS Measure Charge Sheet Measure #130: Documentation of Current Meds in Medical Chart: Patient's medications documented in chart Measure #226: Tobacco Use: Screen & Cessation Intervention: Pt not a tobacco user Measure #111: Pneumonia Vaccination: Pneumococcal vaccine NOT administered or previously given Measure #47: Advance Care Plan: Advance care planning discussed & documented, pt chose/unable to give Measure #412: Opioid Treatment Agreement: Documented signed opioid trtmnt agreemnt min once during opioid trtmnt Measure #408: Opioid Therapy Follow-up Evaluation: Patient had f/u eval minimum every 3 months during opioid therapy Measure #317: Preventitive Care & Scrn High Bld Press & F/U: Pre-hypertensive or hypertensive BP documented, pt will f/u with PCP Measure #128: Body Mass Index (BMI) Screening & Follow-up: BMI documented ABOVE normal parameters - f/u documented Measure #131: Pain Assessment & Follow-up: Pain positive & plan documented Measure #431: Unhealthy Alcohol Use Preventative Care & Scrn: Patient not identified as an unhealthy alcohol user PQRS Narrative: Smoking Status Current every day smoker Do You Want the Pneumonia No Vaccine AT THIS TIME? Narcotic Agreement Date Signed 12/25/16 Blood Pressure 153/89 Pain Intensity [Lower Back] 5 Scale Used Numeric (1 - 10) Hx Alcohol Use (MH) No Home Medications: Ambulatory Orders Budesonide-Formot 160-4.5 Mcg [Symbicort 160-4.5 Mcg Inhaler] 2 puff INHALATION RT-DAILY 11/04/14 Furosemide [Lasix] 20 mg PO QAM 10/12/15 Spironolactone [Aldactone] 25 mg PO QAM 10/12/15 metFORMIN HCL [Glucophage] 500 mg PO QAM 10/12/15 Metoprolol Succinate (ER) [Toprol XL] 300 mg PO QAM 10/11/16 Sertraline HCl [Zoloft] 100 mg PO QAM 10/11/16 Sacubitril/Valsartan [Entresto 24 mg-26 mg Tablet] 1 tab PO QAM 10/25/16 Apixaban [Eliquis] 5 mg PO QAM 11/23/16 busPIRone HCL [Buspar] 7.5 mg PO QAM 01/22/17 Gabapentin [Neurontin] 300 mg PO BID #120 cap 08/14/17 traMADol HCL [Ultram] 50 mg PO DAILY PRN #90 tablet 08/14/17 Controlled Substance Measures - Controlled Substance Measures Is patient prescribed a controlled substance at discharge?: Yes When asked, does pt state using other controlled substances?: No If prescribed controlled substance>3 days was MAPS reviewed?: Yes If Rx opioid, was Start Talking consent form obtained?: Yes If opioid is for acute pain is fill amount 7 days or less?: No Was information provided regarding opioid addiction?: Yes
== END | disposition home or self-care (01) ==
LOC: PNWHC3 11:59
PROVIDERS: ATTEND Pain Medicine Pain Medicine
DX: M47.26 Other spondylosis with radiculopathy, lumbar region (principal); F17.200 Nicotine dependence, unspecified, uncomplicated; Z79.899 Other long term (current) drug therapy; Z79.84 Long term (current) use of oral hypoglycemic drugs; Z79.01 Long term (current) use of anticoagulants; Z79.891 Long term (current) use of opiate analgesic
CPT/HCPCS: 80307; 80356; 99211

== ENCOUNTER → 2017-08-14 | Outpatient (CLI) | payer OTHER ==
[2017-08-14 14:40] LABS: Blood Urea Nitrogen 14 mg/dL (9-20)
--- NOTE | 2017-08-14 22:16 | CT ---
EXAMINATION TYPE: CT lumbar spine w con DATE OF EXAM: 08/14/2017 COMPARISON: Prior CT lumbar spine October 15, 2015. HISTORY: Lumbar region spondylolisthesis per order. Pars Fracture per order. Chronic pain, possible f racture per patient. CT DLP: 3272.4 mGycm Automated exposure control for dose reduction was used. CONTRAST: CT scan of the lumbar is performed with IV Contrast, patient injected with 100 mL of Isovue 300. Enhanced CT of the lumbar spine was performed. Bone and soft tissue window settings are submitted as well as coronal and sagittal reconstructions. Exam is noted suboptimal secondary to patient's large body habitus similar to prior. Findings: 5 lumbar-type vertebra are redemonstrated. Lumbar spine demonstrates satisfactory alignment without evidence of acute fracture or dislocation. Vertebral body heights are maintained. There is m ild to moderate disc space narrowing at L5-S1 level redemonstrated. There is mild multilevel anterior and lateral spurring redemonstrated. No large posterior disc herniations are seen on sagittal images . Axial images at T12-L1 level are felt to remain within normal limits. Axial images at L1-L2 level redemonstrate mild facet degenerative changes bilaterally the spinal lachelle l is preserved bilateral neural foramina are felt patent. Axial images at L2-L3 level demonstrate mild to moderate facet degenerative changes bilaterally. Ther e is mild broad disc bulge mildly effacing anterior thecal sac and causing mild bilateral neural fora rosa narrowing. There is no significant change felt present from prior. Axial images at L3-L4 level show moderate to advanced facet degenerative changes bilaterally. There i s broad disc bulge seen. There is effacement of the anterior and posterior lateral thecal sac. There is fairly moderate bilateral neural foraminal narrowing at this level thought present. No significant change from prior. Axial images at L4-L5 level show fairly advanced facet degenerative changes bilaterally. There is bro ad disc bulge seen. There is effacement of the anterior and posterior lateral thecal sac. There is fa irly moderate to severe bilateral neural foraminal narrowing redemonstrated. Axial images at L5-S1 level show moderate facet arthropathy and central disc protrusion but spinal ca nal is preserved. Sclerosis of the pars is redemonstrated. Alignment is stable. Advanced left-sided n eural foraminal narrowing with bony protrusion sagittal image 47 is redemonstrated, possible osteophy te. Some diverticula are seen in the visualized sigmoid colon. Visualized liver is hypodense suggesting f atty infiltration. There is mild to moderate calcified plaque of distal abdominal aorta extending to iliac branch vessels. Some narrowing and sclerosis right sacroiliac joint remains present IMPRESSION: Multilevel degenerative changes in lumbar spine as detailed above, no significant change from prior. Suboptimal study due to large body habitus noted.
== END | disposition home or self-care (01) ==
LOC: RADCTMAIN 13:20
PROVIDERS: ATTEND Pain Medicine Pain Medicine
DX: M51.36 Other intervertebral disc degeneration, lumbar region (principal)
CPT/HCPCS: 82565; 84520; 72132; 36415; Q9967

== ENCOUNTER 2017-08-22 17:23 | Emergency (ER) | payer OTHER ==
[2017-08-22 17:53] VITALS: RESP 18
[2017-08-22] MEDS ORDERED: ASPIRIN 81 MG PO STA (17:54)
[2017-08-22 18:05] LABS: Basophils # (A) 0.1 k/uL (0-0.2); Basophils % (A) 1 %; Eosinophils # (A) 0.3 k/uL (0-0.7); Eosinophils % (A) 5 %; HCT 46.9 % (39.0-53.0); HGB 15.1 gm/dL (13.0-17.5); Lymphocytes # (A) 2.2 k/uL (1.0-4.8); Lymphocytes % (A) 34 %; MCH 28.1 pg (25.0-35.0); MCHC 32.3 g/dL (31.0-37.0); MCV 87.1 fL (80.0-100.0); Mean Platelet Volume 8.1; Monocytes # (A) 0.3 k/uL (0-1.0); Monocytes % (A) 5 %; Neutrophils # (A) 3.5 k/uL (1.3-7.7); Neutrophils % (A) 54 %; Platelet Count 222 k/uL (150-450); RBC 5.39 m/uL (4.30-5.90); RDW 13.8 % (11.5-15.5); WBC 6.4 k/uL (3.8-10.6)
[2017-08-22 18:15] LABS: ALT 25 U/L (21-72); AST 32 U/L (17-59); Albumin 4.3 g/dL (3.5-5.0); Alkaline Phosphatase 63 U/L (38-126); Anion Gap 11 mmol/L; Blood Urea Nitrogen 12 mg/dL (9-20); Calcium 8.8 mg/dL (8.4-10.2); Carbon Dioxide 23 mmol/L (22-30); Chloride 108 mmol/L (98-107); Glucose 121 mg/dL (74-99); Lipase 23 U/L (23-300); Magnesium 1.7 mg/dL (1.6-2.3); Sodium 142 mmol/L (137-145); Total Bilirubin 1.2 mg/dL (0.2-1.3); Total Protein 7.7 g/dL (6.3-8.2)
[2017-08-22 18:17] LABS: Creatine Kinase 96 U/L (55-170); Potassium 5.2 mmol/L (3.5-5.1)
--- NOTE | 2017-08-22 18:28 | ED ---
General Adult HPI - General Chief complaint: Abdominal Pain Stated complaint: Abd.pain/dizziness Time Seen by Provider: 08/22/17 17:27 Source: patient Mode of arrival: ambulatory Limitations: no limitations - History of Present Illness Initial comments: Walker Rosen is a 51-year-old male with extensive past medical history documented below. The patient presents the ED via EMS from a restaurant for evaluation of sudden onset of hot flash, nausea and diaphoresis. The patient reports that he last ate around midnight last night, he slept throughout most of the day and this evening was at [facility] where he was going to eat his breakfast. He states that he been in his usual state of health in route to the hospital, however when he sat down at the table for his breakfast he suddenly felt flushed, hot and lightheaded. 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 He states that because of this he was having difficulty speaking and his called 911. In route to the hospital patient had intermittent spasms of his abdominal wall and some abdominal pain, no nausea no vomiting remained hemodynamically stable. Upon arrival to the hospital he reports he's feeling better. She denies any fevers, chills, nausea, vomiting, chest pain, shortness of breath. He denies any vomiting, diarrhea or any change in bowel or bladder habits. He reports that his symptoms resolved prior to arrival and that he is feeling very hungry. - Related Data Home Medications Medication Instructions Recorded Confirmed Budesonide-Formot 160-4.5 Mcg 2 puff INHALATION RT-DAILY 11/04/14 08/22/17 [Symbicort 160-4.5 Mcg Inhaler] Furosemide [Lasix] 20 mg PO QAM 10/12/15 08/22/17 Spironolactone [Aldactone] 25 mg PO QAM 10/12/15 08/22/17 metFORMIN HCL [Glucophage] 500 mg PO QAM 10/12/15 08/22/17 Metoprolol Succinate (ER) [Toprol 100 mg PO QAM 10/11/16 08/22/17 XL] Sacubitril/Valsartan [Entresto 24 1 tab PO QAM 10/25/16 08/22/17 mg-26 mg Tablet] Apixaban [Eliquis] 5 mg PO QAM 11/23/16 08/22/17 busPIRone HCL [Buspar] 7.5 mg PO QAM 01/22/17 08/22/17 Metoprolol Succinate [Toprol XL] 200 mg PO QAM 08/22/17 08/22/17 Sertraline [Zoloft] 100 mg PO DAILY 08/22/17 08/22/17 traMADol HCL [Ultram] 50 mg PO BID 08/22/17 08/22/17 Previous Rx's Medication Instructions Recorded Gabapentin [Neurontin] 300 mg PO BID #120 cap 08/14/17 Allergies Allergy/AdvReac Type Severity Reaction Status Date / Time No Known Allergies Allergy Verified 08/22/17 17:48 Review of Systems ROS Statement: Those systems with pertinent positive or pertinent negative responses have been documented in the HPI. ROS Other: All systems not noted in ROS Statement are negative. Constitutional: Denies: fever, chills ENT: Denies: throat pain Respiratory: Denies: cough, dyspnea, wheezes Cardiovascular: Denies: chest pain, dyspnea on exertion Endocrine: Denies: fatigue Gastrointestinal: Reports: abdominal pain. Denies: vomiting, diarrhea, constipation, hematemesis Genitourinary: Denies: urgency, dysuria, frequency Skin: Denies: rash, lesions, change in color Neurological: Reports: headache. Denies: weakness, numbness, paresthesias, confusion Psychiatric: Denies: anxiety, depression Hematological/Lymphatic: Denies: easy bleeding, easy bruising Past Medical History Past Medical History: Asthma, Heart Failure, Diabetes Mellitus, Hypertension Additional Past Medical History / Comment(s): uses c-pap machine History of Any Multi-Drug Resistant Organisms: MRSA Date of last positivie culture/infection: 10/19/15 MDRO Source:: LEFT LEG Past Surgical History: AICD, Heart Catheterization, Pacemaker Additional Past Surgical History / Comment(s): TEETH EXTRACTIONS, pain procedures, Biotronik AICD Past Anesthesia/Blood Transfusion Reactions: No Reported Reaction Type of Cardiac Device: AICD Device Placement Date:: 2015 Past Psychological History: Anxiety Smoking Status: Current every day smoker Past Alcohol Use History: Occasional Past Drug Use History: Marijuana - Past Family History Father History Unknown: Yes Mother Family Medical History: Diabetes Mellitus General Exam Limitations: no limitations General appearance: alert, in no apparent distress Head exam: Present: atraumatic, normocephalic Eye exam: Present: normal appearance, PERRL. Absent: scleral icterus ENT exam: Present: normal exam, normal oropharynx Neck exam: Present: normal inspection Respiratory exam: Present: normal lung sounds bilaterally. Absent: respiratory distress, wheezes Cardiovascular Exam: Present: regular rate, normal rhythm GI/Abdominal exam: Present: soft, normal bowel sounds, other (obese, some abdominal wall spasms appear very similar to hiccups.). Absent: distended, tenderness, guarding, rebound, rigid, diminished bowel sounds, organomegaly, mass, bruit, pulsatile mass, hernia Rectal exam: Present: deferred Extremities exam: Present: full ROM. Absent: pedal edema Neurological exam: Present: alert, oriented X3 Psychiatric exam: Present: normal affect, normal mood Skin exam: Present: warm, dry, intact Course Vital Signs 08/22/17 08/22/17 08/22/17 17:25 19:45 20:58 Temperature 98.5 F Pulse Rate 75 61 61 Respiratory 18 18 18 Rate Blood Pressure 168/103 127/67 O2 Sat by Pulse 95 100 97 Oximetry 08/22/17 22:15 Temperature 98.3 F Pulse Rate 63 Respiratory 18 Rate Blood Pressure 125/74 O2 Sat by Pulse 97 Oximetry Medical Decision Making - Medical Decision Making The patient was seen and evaluated, history was obtained from the patient and EMS Patient had not eaten in nearly 18 hours, sat down to eat and became very lightheaded, nauseated and developed some abdominal wall spasms. He did not have any chest pain, shortness of breath, vomiting or loss of consciousness. Patient was hemodynamically stable with a normal glucose upon EMS arrival Upon my initial evaluation the patient is having some spasms of his abdominal wall, these seemed to decrease when he is distracted, despite the abdominal wall spasms occurring at time the patient has a soft but morbidly obese abdomen. The patient is in no acute distress and states that he is feeling much better. Patient has had the pacemaker in place for approximately one year , he has been defibrillated one time, he denies any complications. Considering the patient's having an abdominal wall spasm I will obtain x-rays to evaluate for lead placementAn initial workup was ordered with labs, EKG and chest x-rays. Labs were unremarkable aside from an elevated d-dimer, CTA of the chest was ordered given the patient's near syncopal event Troponins were negative Eyes the patient that due to the elevated d-dimer would be recommended that he obtain a CT of the chest to evaluate for possible pulmonary wasn't. Patient is agreeable. However patient states that he is feeling very hungry and feels that some of the symptoms are due to not eating. Patient was given a sandwich as well as apple and cranberry juice. CTA of the chest with no PE Patient was reevaluated after CT. He is very anxious for discharge and states that he is feeling quite well. He tolerated his oral intake and states that he is feeling better after eating. I advised the patient that considering his complicated medical history we could offer him observation for continuous cardiac monitoring, however patient feels comfortable with the plan for discharge home and follow-up with his primary care physician. Patient agreeable to plan to return to the emergency department if he has any acute worsening of his symptoms, development of chest pain or shortness of breath. All questions pertaining to care were answered to the best my ability patient was discharged home with his . - Lab Data Result diagrams: 08/22/17 17:54 08/22/17 17:54 Lab Results 08/22/17 08/22/17 08/22/17 Range/Units 17:54 17:54 17:54 WBC 6.4 (3.8-10.6) k/uL RBC 5.39 (4.30-5.90) m/uL Hgb 15.1 (13.0-17.5) gm/dL Hct 46.9 (39.0-53.0) % MCV 87.1 (80.0-100.0) fL MCH 28.1 (25.0-35.0) pg MCHC 32.3 (31.0-37.0) g/dL RDW 13.8 (11.5-15.5) % Plt Count 222 (150-450) k/uL Neutrophils % 54 % Lymphocytes % 34 % Monocytes % 5 % Eosinophils % 5 % Basophils % 1 % Neutrophils # 3.5 (1.3-7.7) k/uL Lymphocytes # 2.2 (1.0-4.8) k/uL Monocytes # 0.3 (0-1.0) k/uL Eosinophils # 0.3 (0-0.7) k/uL Basophils # 0.1 (0-0.2) k/uL PT (9.0-12.0) sec INR (<1.2) APTT (22.0-30.0) sec D-Dimer (<0.60) mg/L FEU Sodium 142 (137-145) mmol/L Potassium 5.2 H (3.5-5.1) mmol/L Chloride 108 H (98-107) mmol/L Carbon Dioxide 23 (22-30) mmol/L Anion Gap 11 mmol/L BUN 12 (9-20) mg/dL Creatinine 0.70 (0.66-1.25) mg/dL Est GFR (CKD-EPI)AfAm >90 (>60 ml/min/1.73 sqM) Est GFR (CKD-EPI)NonAf >90 (>60 ml/min/1.73 sqM) Glucose 121 H (74-99) mg/dL Calcium 8.8 (8.4-10.2) mg/dL Magnesium 1.7 (1.6-2.3) mg/dL Total Bilirubin 1.2 (0.2-1.3) mg/dL AST 32 (17-59) U/L ALT 25 (21-72) U/L Alkaline Phosphatase 63 (38-126) U/L Total Creatine Kinase 96 (55-170) U/L CK-MB (CK-2) 0.6 (0.0-2.4) ng/mL CK-MB (CK-2) Rel Index 0.6 Troponin I <0.012 (0.000-0.034) ng/mL Total Protein 7.7 (6.3-8.2) g/dL Albumin 4.3 (3.5-5.0) g/dL Lipase 23 (23-300) U/L Urine Color Urine Appearance (Clear) Urine pH (5.0-8.0) Ur Specific [place] (1.001-1.035) Urine Protein (Negative) Urine Glucose (UA) (Negative) Urine Ketones (Negative) Urine Blood (Negative) Urine Nitrite (Negative) Urine Bilirubin (Negative) Urine Urobilinogen (<2.0) mg/dL Ur Leukocyte Esterase (Negative) 08/22/17 08/22/17 08/22/17 Range/Units 19:01 20:01 21:34 WBC (3.8-10.6) k/uL RBC (4.30-5.90) m/uL Hgb (13.0-17.5) gm/dL Hct (39.0-53.0) % MCV (80.0-100.0) fL MCH (25.0-35.0) pg MCHC (31.0-37.0) g/dL RDW (11.5-15.5) % Plt Count (150-450) k/uL Neutrophils % % Lymphocytes % % Monocytes % % Eosinophils % % Basophils % % Neutrophils # (1.3-7.7) k/uL Lymphocytes # (1.0-4.8) k/uL Monocytes # (0-1.0) k/uL Eosinophils # (0-0.7) k/uL Basophils # (0-0.2) k/uL PT 10.6 (9.0-12.0) sec INR 1.1 (<1.2) APTT 25.7 (22.0-30.0) sec D-Dimer 0.99 H (<0.60) mg/L FEU Sodium (137-145) mmol/L Potassium (3.5-5.1) mmol/L Chloride (98-107) mmol/L Carbon Dioxide (22-30) mmol/L Anion Gap mmol/L BUN (9-20) mg/dL Creatinine (0.66-1.25) mg/dL Est GFR (CKD-EPI)AfAm (>60 ml/min/1.73 sqM) Est GFR (CKD-EPI)NonAf (>60 ml/min/1.73 sqM) Glucose (74-99) mg/dL Calcium (8.4-10.2) mg/dL Magnesium (1.6-2.3) mg/dL Total Bilirubin (0.2-1.3) mg/dL AST (17-59) U/L ALT (21-72) U/L Alkaline Phosphatase (38-126) U/L Total Creatine Kinase (55-170) U/L CK-MB (CK-2) (0.0-2.4) ng/mL CK-MB (CK-2) Rel Index Troponin I <0.012 (0.000-0.034) ng/mL Total Protein (6.3-8.2) g/dL Albumin (3.5-5.0) g/dL Lipase (23-300) U/L Urine Color Yellow Urine Appearance Clear (Clear) Urine pH 5.5 (5.0-8.0) Ur Specific [place] 1.021 (1.001-1.035) Urine Protein Negative (Negative) Urine Glucose (UA) Negative (Negative) Urine Ketones Negative (Negative) Urine Blood Negative (Negative) Urine Nitrite Negative (Negative) Urine Bilirubin Negative (Negative) Urine Urobilinogen <2.0 (<2.0) mg/dL Ur Leukocyte Esterase Negative (Negative) Disposition Clinical Impression: Syncope, near, Abdominal pain Disposition: HOME SELF-CARE Condition: Good Instructions: Abdominal Pain (ED) Is patient prescribed a controlled substance at d/c from ED?: No Referrals: aMrya Crooks MD [Primary Care Provider] - 1-2 days Time of Disposition: 22:07
[2017-08-22 18:30] LABS: Creatine Kinase MB 0.6 ng/mL (0.0-2.4); Troponin I <0.012 ng/mL (0.000-0.034)
--- NOTE | 2017-08-22 18:43 | XR ---
EXAMINATION: XR chest 2V DATE AND TIME: 08/22/2017 6:26 PM ORDERING PROVIDER: Mireya Norman DO CLINICAL INDICATION: Chest Pain TECHNIQUE: PA and lateral COMPARISON: 01/28/2017 DESCRIPTION: The overlying soft tissues are markedly prominent. Cardiac pacemaker noted. There is perihilar haze and engorgement of the pulmonary vasculature with ev idence of a fine reticular pattern of increased density bilaterally throughout the lungs, mildly silh ouetting the pulmonary vasculature. The lungs are otherwise well-expanded and clear. The pleural spaces are negative. The cardiac silhouette is mild moderately enlarged. The mediastinal and pleural silhouettes are unremarkable. The skeletal structures are intact without focal findings. The soft tissues are unremarkable. IMPRESSION: Suspect mild interstitial phase cardiogenic edema, presumably cardiogenic etiology.
--- NOTE | 2017-08-22 18:48 | XR ---
EXAMINATION TYPE: XR KUB 2 views DATE OF EXAM: 08/22/2017 COMPARISON: NONE HISTORY: Generalized abdominal pain TECHNIQUE: Both views are upright, in order to include the abdomen and pelvis FINDINGS: The visualized lung bases and pleural spaces are negative. There is no pneumoperitoneum and no pneumatosis. Bowel gas pattern is normal. Gas is seen throughout the colon. No definite acute skeletal or soft tissue findings. IMPRESSION: Negative examination.
[2017-08-22] MEDS ORDERED: SODIUM CHLORIDE 0.9% 1,000 ML IV ONE (19:23)
[2017-08-22 19:43] LABS: INR 1.1 (<1.2); Partial Thromboplastin Time 25.7 sec (22.0-30.0); Prothrombin Time 10.6 sec (9.0-12.0)
[2017-08-22 19:49] LABS: D-Dimer 0.99 mg/L FEU (<0.60)
[2017-08-22 20:08] LABS: Appearance,Urine Clear (Clear); Bilirubin,Urine Negative (Negative); Blood,Urine Negative (Negative); Color,Urine Yellow; Glucose,Urine (UA) Negative (Negative); Ketones,Urine Negative (Negative); Leukocyte Esterase,Urine Negative (Negative); Nitrite,Urine Negative (Negative); PH, Urine 5.5 (5.0-8.0); Protein,Urine Negative (Negative); Specific Gravity,Urine 1.021 (1.001-1.035); Urobilinogen,Urine <2.0 mg/dL (<2.0)
--- NOTE | 2017-08-22 21:02 | CT ---
EXAMINATION TYPE: CT angio chest with contrast and with 3-D reconstruction renderings DATE OF EXAM: 08/22/2017 8:43 PM COMPARISON: 11/26/2014 HISTORY: Elevated d-dimer, dizziness CT DLP: 1280.3 mGycm Automated exposure control for dose reduction was used. CONTRAST: CTA scan of the thorax is performed with IV Contrast, patient injected with 90 mL of Isovue 370, pulm onary embolism protocol. 3-D reconstructions. FINDINGS: LUNGS: The lungs are grossly clear, there is no concerning parenchymal mass or nodule identified. T here is no pleural effusion or pneumothorax seen. The tracheobronchial tree is patent. MEDIASTINUM: There is only mild-moderate enhancement of the pulmonary artery and its branches, but th ere is no CT evidence for pulmonary embolism. The enhancement pattern limited sensitivity for segment al branch emboli to a mild/moderate degree. There are no greater than 1 cm hilar or mediastinal lymp h nodes. There is mild cardiomegaly with panchamber enlargement, with coronary calcifications. No per icardial effusion is seen. The aorta is unremarkable. SKELETAL STRUCTURES: No focal findings. No additional significant abnormality is seen. VISUALIZED SUBDIAPHRAGMATIC STRUCTURES: Unremarkable. IMPRESSION: 1. NO DEFINITE ACUTE PROCESS , DISCUSSED. 2. MILD CARDIOMEGALY WITH PANCHAMBER ENLARGEMENT AND CORONARY CALCIFICATIONS.
[2017-08-22 22:16] VITALS: BP 125/74; PULSE 63; TEMP 98.3
== END 2017-08-22 22:16 | disposition home or self-care (01) ==
LOC: EC 17:23
DX: R10.9 Unspecified abdominal pain (principal); R55 Syncope and collapse; R11.0 Nausea; R61 Generalized hyperhidrosis; J45.909 Unspecified asthma, uncomplicated; I11.0 Hypertensive heart disease with heart failure; I50.9 Heart failure, unspecified; E11.9 Type 2 diabetes mellitus without complications; F41.9 Anxiety disorder, unspecified; F17.200 Nicotine dependence, unspecified, uncomplicated; Z86.14 Personal history of Methicillin resistant Staphylococcus aureus infection; Z95.810 Presence of automatic (implantable) cardiac defibrillator; Z79.01 Long term (current) use of anticoagulants; Z79.51 Long term (current) use of inhaled steroids; Z79.84 Long term (current) use of oral hypoglycemic drugs; Z79.899 Other long term (current) drug therapy
CPT/HCPCS: 36415; 93005; 85379; 80053; 82550; 82553; 83690; 83735; 84484; 85025; 85610; 85730; 81003; 71046; 74018; 71275; 99285; 96360; Q9967

== ENCOUNTER 2018-02-04 09:32 | Observation (INO) | payer OTHER ==
[2018-02-04] MEDS ORDERED: ONDANSETRON 4 MG/2 ML VIAL IVP STA (10:09)
[2018-02-04] MEDS ORDERED: HYDROmorphone 1 MG/ML 1 ML SYRINGE IVP STA ×2 (10:09→13:09)
[2018-02-04 11:03] LABS: Basophils % (A) 0 %; Eosinophils # (A) 0.3 k/uL (0-0.7); Eosinophils % (A) 3 %; HCT 50.3 % (39.0-53.0); HGB 16.1 gm/dL (13.0-17.5); Lymphocytes # (A) 1.5 k/uL (1.0-4.8); Lymphocytes % (A) 15 %; MCH 28.3 pg (25.0-35.0); MCV 88.5 fL (80.0-100.0); Mean Platelet Volume 7.8; Monocytes # (A) 0.4 k/uL (0-1.0); Monocytes % (A) 4 %; Neutrophils # (A) 7.7 k/uL (1.3-7.7); Neutrophils % (A) 77 %; Platelet Count 223 k/uL (150-450); RBC 5.68 m/uL (4.30-5.90); RDW 13.7 % (11.5-15.5)
[2018-02-04 11:12] LABS: ALT 29 U/L (21-72); AST 17 U/L (17-59); Albumin 3.8 g/dL (3.5-5.0); Alkaline Phosphatase 73 U/L (38-126); Amylase 42 U/L (30-110); Anion Gap 9 mmol/L; Blood Urea Nitrogen 9 mg/dL (9-20); Calcium 9.4 mg/dL (8.4-10.2); Carbon Dioxide 27 mmol/L (22-30); Chloride 106 mmol/L (98-107); Glucose 148 mg/dL (74-99); Lipase 32 U/L (23-300); Sodium 142 mmol/L (137-145); Total Bilirubin 0.9 mg/dL (0.2-1.3); Total Protein 7.5 g/dL (6.3-8.2)
--- NOTE | 2018-02-04 11:38 | CT ---
EXAMINATION TYPE: CT abdomen pelvis w con DATE OF EXAM: 02/04/2018 COMPARISON: None HISTORY: Low abdominal pain CT DLP: 3943 mGycm CONTRAST: CT scan of the abdomen and pelvis is performed with Oral Contrast and with IV Contrast, patient injec chiqui with 100 mL of Isovue 300. FINDINGS: LUNG BASES-: No visible nodule. No infiltrate. LIVER/GB: No calcified gallstones. No space occupying hepatic lesion. Biliary tree is of normal ca liber. PANCREAS: No inflammation. No distinct mass. SPLEEN: No splenic enlargement. No lesion seen. ADRENALS: No nodule. No thickening. KIDNEYS/BLADDER: No hydronephrosis. No nephrolithiasis. No distinct renal mass. Urinary bladder g rossly unremarkable. BOWEL: Normal appendix. Wall thickening with perisigmoid inflammatory change noted compatible with ac mary diverticulitis. No evidence for perforation or abscess at this time. GENITAL ORGANS: No gross abnormality. LYMPH NODES: No greater than 1cm abdominal or pelvic lymph nodes are appreciated. AORTA: No significant abnormality. OSSEOUS STRUCTURES: No significant abnormality is seen. OTHER: No significant additional abnormality is seen. IMPRESSION: 1. Uncomplicated acute sigmoid diverticulitis.
[2018-02-04] MEDS ORDERED: metroNIDAZOLE-NS PMX 500 MG in SALINE 1 100ML.BAG IVPB STA (11:51)
[2018-02-04] MEDS ORDERED: LEVOFLOXACIN 750MG-D5W PMX 750 MG in DEXTROSE/WATER 1 150ML.BAG IVPB STA (11:51)
--- NOTE | 2018-02-04 11:51 | ED ---
General Adult HPI - General Chief complaint: Abdominal Pain Stated complaint: Abd pain Time Seen by Provider: 02/04/18 09:35 Source: patient, RN notes reviewed Mode of arrival: wheelchair Limitations: no limitations - History of Present Illness Initial comments: This a 52-year-old male who presents emergency Department complaining of lower abdominal pain for 2 days. Patient states right and left side are equally painful. Patient states driving and hitting bumps was extremely painful. Patient denies any nausea vomiting he states he does have a little bit of diarrhea and had a little bit this morning as well. Patient denies any fever chills. Patient denies any abdominal surgeries. Patient denies any back pain. Patient denies any dysuria hematuria urinary frequency. Patient denies any chest pain difficulty breathing shortest breath. - Related Data Home Medications Medication Instructions Recorded Confirmed Budesonide-Formot 160-4.5 Mcg 2 puff INHALATION RT-DAILY 11/04/14 02/04/18 [Symbicort 160-4.5 Mcg Inhaler] Spironolactone [Aldactone] 25 mg PO QAM 10/12/15 02/04/18 metFORMIN HCL [Glucophage] 500 mg PO BID-W/MEALS 10/12/15 02/04/18 Metoprolol Succinate (ER) [Toprol 100 mg PO QAM 10/11/16 02/04/18 XL] Sacubitril/Valsartan [Entresto 24 1 tab PO QAM 10/25/16 02/04/18 mg-26 mg Tablet] Apixaban [Eliquis] 5 mg PO BID 11/23/16 02/04/18 busPIRone HCL [Buspar] 7.5 mg PO BID 01/22/17 02/04/18 Metoprolol Succinate [Toprol XL] 200 mg PO QAM 08/22/17 02/04/18 Sertraline [Zoloft] 100 mg PO DAILY 08/22/17 02/04/18 traMADol HCL [Ultram] 50 mg PO Q8H 08/22/17 02/04/18 Furosemide [Lasix] 40 mg PO DAILY 02/04/18 02/04/18 Gabapentin [Neurontin] 600 mg PO BID 02/04/18 02/04/18 Allergies Allergy/AdvReac Type Severity Reaction Status Date / Time No Known Allergies Allergy Verified 02/04/18 10:26 Review of Systems ROS Statement: Those systems with pertinent positive or pertinent negative responses have been documented in the HPI. ROS Other: All systems not noted in ROS Statement are negative. Past Medical History Past Medical History: Asthma, Heart Failure, Diabetes Mellitus, Hypertension Additional Past Medical History / Comment(s): uses c-pap machine History of Any Multi-Drug Resistant Organisms: MRSA Date of last positivie culture/infection: 10/19/15 MDRO Source:: LEFT LEG Past Surgical History: AICD, Heart Catheterization, Pacemaker Additional Past Surgical History / Comment(s): TEETH EXTRACTIONS, pain procedures, Biotronik AICD Past Anesthesia/Blood Transfusion Reactions: No Reported Reaction Type of Cardiac Device: AICD Device Placement Date:: 2015 Past Psychological History: Anxiety Smoking Status: Current every day smoker Past Alcohol Use History: Occasional Past Drug Use History: Marijuana - Past Family History Father History Unknown: Yes Mother Family Medical History: Diabetes Mellitus General Exam - General Exam Comments Initial Comments: GENERAL: Patient is well-developed and well-nourished. Patient is nontoxic and well- hydrated and is in mild distress. ENT: Neck is soft and supple. No significant lymphadenopathy is noted. Oropharynx is clear. Moist mucous membranes. Neck has full range of motion without eliciting any pain. EYES: The sclera were anicteric and conjunctiva were pink and moist. Extraocular movements were intact and pupils were equal round and reactive to light. Eyelids were unremarkable. PULMONARY: Unlabored respirations. Good breath sounds bilaterally. No audible rales rhonchi or wheezing was noted. CARDIOVASCULAR: There is a regular rate and rhythm without any murmurs gallops or rubs. ABDOMEN: Lower abdominal pain bilaterally SKIN: Skin is clear with no lesions or rashes and otherwise unremarkable. NEUROLOGIC: Patient is alert and oriented x3. Cranial nerves II through XII are grossly intact. Motor and sensory are also intact. Normal speech, volume and content. Symmetrical smile. MUSCULOSKELETAL: Normal extremities with adequate strength and full range of motion. No lower extremity swelling or edema. No calf tenderness. LYMPHATICS: No significant lymphadenopathy is noted PSYCHIATRIC: Normal psychiatric evaluation. Limitations: no limitations Course Vital Signs 02/04/18 09:40 Temperature 98.4 F Pulse Rate 89 Respiratory 18 Rate Blood Pressure 171/77 O2 Sat by Pulse 97 Oximetry Medical Decision Making - Medical Decision Making I discussed smoking cessation for greater than 3 minutes. The risks of smoking were discussed with the patient including but not limited to risks of cancer, stroke, coronary artery disease and COPD. Also discussed with the patient were multiple methods of quitting smoking. Lastly we discussed the financial costs of smoking. I started the patient on Levaquin and Flagyl. CT of the abdomen and pelvis showed acute diverticulitis. I spoke with the patient about this and he did not think he would do well at home because of the pain. He would rather stay in the hospital. I spoke with Dr. Gonzalez he agreed to admit the patient admitted the patient I wrote admitting orders. - Lab Data Result diagrams: 02/04/18 10:37 02/04/18 10:37 Lab Results 02/04/18 02/04/18 02/04/18 Range/Units 10:37 10:37 10:37 WBC 10.0 (3.8-10.6) k/uL RBC 5.68 (4.30-5.90) m/uL Hgb 16.1 (13.0-17.5) gm/dL Hct 50.3 (39.0-53.0) % MCV 88.5 (80.0-100.0) fL MCH 28.3 (25.0-35.0) pg MCHC 32.0 (31.0-37.0) g/dL RDW 13.7 (11.5-15.5) % Plt Count 223 (150-450) k/uL Neutrophils % 77 % Lymphocytes % 15 % Monocytes % 4 % Eosinophils % 3 % Basophils % 0 % Neutrophils # 7.7 (1.3-7.7) k/uL Lymphocytes # 1.5 (1.0-4.8) k/uL Monocytes # 0.4 (0-1.0) k/uL Eosinophils # 0.3 (0-0.7) k/uL Basophils # 0.0 (0-0.2) k/uL Sodium 142 (137-145) mmol/L Potassium 4.0 (3.5-5.1) mmol/L Chloride 106 (98-107) mmol/L Carbon Dioxide 27 (22-30) mmol/L Anion Gap 9 mmol/L BUN 9 (9-20) mg/dL Creatinine 0.79 (0.66-1.25) mg/dL Est GFR (CKD-EPI)AfAm >90 (>60 ml/min/1.73 sqM) Est GFR (CKD-EPI)NonAf >90 (>60 ml/min/1.73 sqM) Glucose 148 H (74-99) mg/dL Plasma Lactic Acid Dante 2.1 H* (0.7-2.0) mmol/L Calcium 9.4 (8.4-10.2) mg/dL Total Bilirubin 0.9 (0.2-1.3) mg/dL AST 17 (17-59) U/L ALT 29 (21-72) U/L Alkaline Phosphatase 73 (38-126) U/L Total Protein 7.5 (6.3-8.2) g/dL Albumin 3.8 (3.5-5.0) g/dL Amylase 42 (30-110) U/L Lipase 32 (23-300) U/L Disposition Clinical Impression: Diverticulitis Disposition: ADMITTED IP TO THIS [facility] Referrals: Marya Crooks MD [Primary Care Provider] - 1-2 days Time of Disposition: 12:43
[2018-02-04] MEDS ORDERED: LORazepam 2 MG/ML INJ IM STA (12:17)
[2018-02-04] MEDS ORDERED: ZIPRASIDONE 20 MG VIAL IM STA (12:17)
[2018-02-04] MEDS ORDERED: SODIUM CHLORIDE 0.9% 1,000 ML IV ONE (12:43)
[2018-02-04 13:03] LABS: Appearance,Urine Clear (Clear); Bilirubin,Urine Negative (Negative); Blood,Urine Negative (Negative); Color,Urine Yellow; Glucose,Urine (UA) Negative (Negative); Ketones,Urine Negative (Negative); Leukocyte Esterase,Urine Negative (Negative); Nitrite,Urine Negative (Negative); Protein,Urine Trace (Negative); Urobilinogen,Urine <2.0 mg/dL (<2.0)
[2018-02-04] MEDS: HYDROmorphone 1 MG/ML 1 ML SYRINGE IVP PRN ×3 (13:29→20:33)
[2018-02-04] MEDS ORDERED: IPRATROPIUM-ALBUTEROL 3 ML NEB INHALATION PRN (14:39)
[2018-02-04] MEDS ORDERED: PANTOPRAZOLE 40 MG/10 ML VIAL IVP SCH (14:45)
[2018-02-04] MEDS: IPRATROPIUM-ALBUTEROL 3 ML NEB INHALATION SCH ×3 (15:48→19:39)
[2018-02-04 17:09] LABS: Glucose,Whole Blood 90 mg/dL (75-99)
[2018-02-04] MEDS: traMADol 50 MG TAB PO SCH (17:52)
[2018-02-04] MEDS: INSULIN ASPART 100 UNIT/ML 1 ML 10 ML VIAL SQ SCH ×2 (17:53→23:41)
[2018-02-04] MEDS: metroNIDAZOLE-NS PMX 500 MG in SALINE 1 100ML.BAG IVPB SCH ×2 (17:54→23:45)
[2018-02-04] MEDS: SYMBICORT 160-4.5 MCG INHALER INHALATION SCH (19:31)
[2018-02-04 20:48] LABS: Glucose,Whole Blood 103 mg/dL (75-99)
[2018-02-04] MEDS ORDERED: LORazepam 2 MG/ML INJ IV PRN (21:45)
[2018-02-04] MEDS ORDERED: TEMAZEPAM 15 MG CAP PO PRN (21:45)
[2018-02-04] MEDS: HEPARIN SODIUM,PORCINE 5,000 UNIT/ML 1 ML VIAL SQ SCH (22:21)
[2018-02-04] MEDS: PANTOPRAZOLE 40 MG/10 ML VIAL IVP SCH (22:21)
[2018-02-04] MEDS: GABAPENTIN 300 MG CAP PO SCH (22:21)
[2018-02-04] MEDS: busPIRone HCl 5 MG TAB PO SCH (22:22)
--- NOTE | 2018-02-04 23:03 | HP ---
HISTORY AND PHYSICAL CHIEF COMPLAINT: Abdominal pain. HISTORY OF PRESENT ILLNESS: This 52-year-old gentleman with a past medical history of multiple medical issues including atrial fibrillation, asthma, COPD, CHF, diabetes, hypertension, DJD, history of pneumonia, history of AICD being followed by Dr. Marya Crokos in the outpatient setting is complaining of abdominal pain for the last 2 days. Pain is mostly in the left side which is severely painful and the patient also has some mild diarrhea. Patient came to [facility] and was admitted for further evaluation and treatment. CT scan showed acute sigmoid diverticulitis. The surgical evaluation was sought. White count is normal at this time. There is no history of fever, rigors. No history of headache, loss of consciousness or seizures. The patient rates the pain as 8 out of 10 at this time. PAST MEDICAL HISTORY: History of atrial flutter fibrillation, asthma, CHF, COPD, AICD, bradycardia, nonischemic cardiomyopathy. MEDICATIONS: Prior to admission: Home medications are: 1. Ultram 50 mg q.8h p.r.n. 2. Aldactone 25 mg q.a.m. 3. Zoloft 100 mg. 4. Entresto 24-26 q.a.m. 5. Toprol-XL 200 mg q.a.m. 6. Toprol XL 100 mg q.a.m. 7. Neurontin 600 mg p.o. b.i.d. 8. Glucophage 500 mg b.i.d. 9. BuSpar 7.5 mg b.i.d. 10.Lasix 40 mg p.o. daily. 11.Symbicort 160/4.5 two puffs daily. 12.Eliquis 5 mg p.o. b.i.d. ALLERGIES: None. FAMILY HISTORY: History of diabetes mellitus. SOCIAL HISTORY: History of alcohol, THC, smoking. REVIEW OF SYSTEMS: ENT: No diminished vision. No diminished hearing. Cardiovascular: No angina or palpitations. Otherwise, as mentioned earlier. RESPIRATORY: No cough. GASTROINTESTINAL: As mentioned earlier. no dysuria. Nervous system: No numbness, weakness. Allergy/Immunology: No asthma or hayfever. MUSCULOSKELETAL: As mentioned earlier. HEMATOLOGY/ONCOLOGY: No history of anemia. ENDOCRINE: Diabetes mellitus. No hypothyroidism. CONSTITUTIONAL: As mentioned earlier. Dermatology: Negative. Rheumatology: Negative. Psychiatry: As mentioned earlier. PHYSICAL EXAMINATION: Alert and oriented x2. Pulse is 91, blood pressure 128/72, respiration 20, temperature 98.1, pulse ox 98% on room air. HEENT conjunctivae normal. Oral mucosa moist. Neck is no jugular venous distention. No carotid bruit. No lymph node enlargement. Cardiovascular system: S1, S2 muffled. No S3, no S4. AICD in CT on the left chest. Otherwise respirations: Breath sounds diminished in the bases. No rhonchi. No crackles. ABDOMEN: Soft, obese, mild diffuse tenderness especially in the lower part, left more than the right. No guarding. No rigidity. No mass palpable. Bowel sounds present. No ascites. Legs: No edema. No swelling. NERVOUS SYSTEM: Higher functions as mentioned earlier. Moves all 4 limbs. No focal motor or sensory deficits. Lymphatics: No lymph nodes palpable in the neck, axillae or groin. SKIN: No ulcer, rash or bleeding. LABS: CBC within normal limits and glucose 103. ASSESSMENT: 1. Acute sigmoid diverticulitis with severe pain. 2. History atrial flutter/fibrillation. 3. History of asthma. 4. Congestive heart failure. 5. Chronic obstructive pulmonary disease. 6. Diabetes. 7. Hypertension. 8. History of degenerative joint disease. 9. History of pneumonia. 10.History of sleep apnea. 11.Supraventricular tachycardia. 12.History of nonischemic cardiomyopathy with automatic implantable cardioverter - defibrillator. 13.History of cardiac catheterization. 14.History of anxiety, depression. 15.History of nicotine dependence. 16.History of THC. RECOMMENDATIONS AND DISCUSSION: In this 52-year-old gentleman who presented with multiple complex medical issues , we will monitor the patient closely. Continue the current medications, management and symptomatic treatment. We will initiate broad-spectrum IV antibiotics. Surgical evaluation. Pain management p.r.n. Ativan. Otherwise, continue DVT prophylaxis. Continue the rest of medications. Prognosis guarded because of multiple complex medical issues. Further recommendations to follow. A copy of dictation being forwarded to Dr. Marya Crooks, who is the primary physician. MMODL / IJN: [id number] / MTDKrzysztof
[2018-02-04] MEDS: PIPERACILLIN-TAZOBACTAM 3.375 GM in SODIUM CHLORIDE 0.9% 100 ML IVPB SCH (23:46)
[2018-02-05] MEDS: SODIUM CHLORIDE 0.9% 1,000 ML IV SCH ×2 (00:16→17:12)
[2018-02-05] MEDS: NICOTINE 14MG/24HR PATCH TRANSDERM SCH ×3 (00:16→10:01)
[2018-02-05] MEDS: traMADol 50 MG TAB PO SCH ×3 (00:20→17:11)
[2018-02-05] MEDS: HYDROmorphone 1 MG/ML 1 ML SYRINGE IVP PRN (03:47)
[2018-02-05 04:38] LABS: Hemoglobin A1C 6.7 % (4.0-6.0)
[2018-02-05] MEDS: metroNIDAZOLE-NS PMX 500 MG in SALINE 1 100ML.BAG IVPB SCH ×4 (05:49→23:13)
[2018-02-05 06:55] LABS: Glucose,Whole Blood 122 mg/dL (75-99)
[2018-02-05] MEDS: SYMBICORT 160-4.5 MCG INHALER INHALATION SCH (07:20)
[2018-02-05] MEDS: IPRATROPIUM-ALBUTEROL 3 ML NEB INHALATION SCH ×4 (07:20→21:04)
[2018-02-05] MEDS: INSULIN ASPART 100 UNIT/ML 1 ML 10 ML VIAL SQ SCH ×4 (07:38→20:59)
[2018-02-05] MEDS: PIPERACILLIN-TAZOBACTAM 3.375 GM in SODIUM CHLORIDE 0.9% 100 ML IVPB SCH ×2 (07:46→18:23)
--- NOTE | 2018-02-05 08:43 | P.GSCN ---
History of Present Illness Consult date: 02/05/18 Reason for Consult: Diverticulitis History of present illness: This a 52-year-old male who was admitted through the emergency room with complaints of abdominal pain. Patient was worked up found evidence of diverticulitis. Patient states his pain was a 10 out of 10 yesterday. He currently is an 8 out of 10. He has complaints of pain left lower quadrant. Past Medical History Past Medical History: Atrial Fibrillation, Atrial Flutter, Asthma, Heart Failure , COPD, Diabetes Mellitus, Hypertension, Osteoarthritis (OA), Pneumonia, Sleep Apnea/CPAP/BIPAP, Supraventricular Tachycardia (SVT) Additional Past Medical History / Comment(s): Nonischemic cardiomyopathy, NSVT, Vtach, SSS, bronchitis, [place] with Cpap, NIDDM type II, neuropathy bilateral hands /feet, bilateral carpal tunnel syndrome, chronic low back pain with bilateral sciatica, bilateral tinnitis. History of Any Multi-Drug Resistant Organisms: MRSA Year Discovered:: 10/19/15 MDRO Source:: LEFT LEG Past Surgical History: AICD, Heart Catheterization, Pacemaker Additional Past Surgical History / Comment(s): AICD/pacemaker, 07/09/17 Aflutter ablation, 2011 cardiac cath-normal, colonoscopy, teeth extractions, pain procedures, Past Anesthesia/Blood Transfusion Reactions: No Reported Reaction Type of Cardiac Device: Permanent Pacemaker, AICD Device Placement Date:: 2015 Smoking Status: Current every day smoker - Past Family History Father History Unknown: Yes Additional Family Medical History / Comment(s): Father medical hx is unknown. Mother Family Medical History: Diabetes Mellitus Additional Family Medical History / Comment(s): Mother is "borderline" diabetic. She is alive and in her mid 70s. Medications and Allergies Home Medications Medication Instructions Recorded Confirmed Type Budesonide-Formot 160-4.5 Mcg 2 puff INHALATION RT-DAILY 11/04/14 02/04/18 History [Symbicort 160-4.5 Mcg Inhaler] Spironolactone [Aldactone] 25 mg PO QAM 10/12/15 02/04/18 History metFORMIN HCL [Glucophage] 500 mg PO BID-W/MEALS 10/12/15 02/04/18 History Metoprolol Succinate (ER) [Toprol 100 mg PO QAM 10/11/16 02/04/18 History XL] Sacubitril/Valsartan [Entresto 24 1 tab PO QAM 10/25/16 02/04/18 History mg-26 mg Tablet] Apixaban [Eliquis] 5 mg PO BID 11/23/16 02/04/18 History busPIRone HCL [Buspar] 7.5 mg PO BID 01/22/17 02/04/18 History Metoprolol Succinate [Toprol XL] 200 mg PO QAM 08/22/17 02/04/18 History Sertraline [Zoloft] 100 mg PO DAILY 08/22/17 02/04/18 History traMADol HCL [Ultram] 50 mg PO Q8H 08/22/17 02/04/18 History Furosemide [Lasix] 40 mg PO DAILY 02/04/18 02/04/18 History Gabapentin [Neurontin] 600 mg PO BID 02/04/18 02/04/18 History Allergies Allergy/AdvReac Type Severity Reaction Status Date / Time No Known Allergies Allergy Verified 02/04/18 10:26 Surgical - Exam Vital Signs Temp Pulse Resp BP Pulse Ox 98.4 F 89 18 171/77 97 02/04/18 09:40 02/04/18 09:40 02/04/18 09:40 02/04/18 09:40 02/04/18 09:40 Obesity with BMI 52 - Eyes PERRL, normal ocular movement - ENT normal pinna - Neck no masses - Respiratory normal expansion - Cardiovascular Rhythm: regular - Abdomen Heart tenderness left lower quadrant Abdomen: soft Results - Labs 02/04/18 10:37 02/04/18 10:37 Abnormal Lab Results - Last 24 Hours (Table) 02/04/18 02/04/18 02/04/18 Range/Units 10:37 10:37 10:37 Glucose 148 H (74-99) mg/dL POC Glucose (mg/dL) (75-99) mg/dL Hemoglobin A1c 6.7 H (4.0-6.0) % Plasma Lactic Acid Dante 2.1 H* (0.7-2.0) mmol/L Ur Specific [place] (1.001-1.035) Urine Protein (Negative) 02/04/18 02/04/18 02/05/18 Range/Units 12:30 20:47 06:53 Glucose (74-99) mg/dL POC Glucose (mg/dL) 103 H 122 H (75-99) mg/dL Hemoglobin A1c (4.0-6.0) % Plasma Lactic Acid Dante (0.7-2.0) mmol/L Ur Specific [place] 1.050 H (1.001-1.035) Urine Protein Trace H (Negative) Diabetes panel 02/04/18 02/04/18 Range/Units 10:37 10:37 Sodium 142 (137-145) mmol/L Potassium 4.0 (3.5-5.1) mmol/L Chloride 106 (98-107) mmol/L Carbon Dioxide 27 (22-30) mmol/L BUN 9 (9-20) mg/dL Creatinine 0.79 (0.66-1.25) mg/dL Glucose 148 H (74-99) mg/dL Hemoglobin A1c 6.7 H (4.0-6.0) % Calcium 9.4 (8.4-10.2) mg/dL AST 17 (17-59) U/L ALT 29 (21-72) U/L Alkaline Phosphatase 73 (38-126) U/L Total Protein 7.5 (6.3-8.2) g/dL Albumin 3.8 (3.5-5.0) g/dL Calcium panel 02/04/18 Range/Units 10:37 Calcium 9.4 (8.4-10.2) mg/dL Albumin 3.8 (3.5-5.0) g/dL Pituitary panel 02/04/18 Range/Units 10:37 Sodium 142 (137-145) mmol/L Potassium 4.0 (3.5-5.1) mmol/L Chloride 106 (98-107) mmol/L Carbon Dioxide 27 (22-30) mmol/L BUN 9 (9-20) mg/dL Creatinine 0.79 (0.66-1.25) mg/dL Glucose 148 H (74-99) mg/dL Calcium 9.4 (8.4-10.2) mg/dL Adrenal panel 02/04/18 Range/Units 10:37 Sodium 142 (137-145) mmol/L Potassium 4.0 (3.5-5.1) mmol/L Chloride 106 (98-107) mmol/L Carbon Dioxide 27 (22-30) mmol/L BUN 9 (9-20) mg/dL Creatinine 0.79 (0.66-1.25) mg/dL Glucose 148 H (74-99) mg/dL Calcium 9.4 (8.4-10.2) mg/dL Total Bilirubin 0.9 (0.2-1.3) mg/dL AST 17 (17-59) U/L ALT 29 (21-72) U/L Alkaline Phosphatase 73 (38-126) U/L Total Protein 7.5 (6.3-8.2) g/dL Albumin 3.8 (3.5-5.0) g/dL - Imaging CT scan - abdomen: report reviewed (Sigmoid diverticulitis) Assessment and Plan Assessment: Acute diverticulitis. There is no evidence of perforation or abscess. The patient will continue IV antibiotics and remain nothing by mouth.
[2018-02-05] MEDS ORDERED: METOPROLOL SUCCINATE (ER) 100 MG TAB.ER.24H PO SCH (09:00)
[2018-02-05] MEDS ORDERED: LEVOFLOXACIN 750MG-D5W PMX 750 MG in DEXTROSE/WATER 1 150ML.BAG IVPB SCH (09:00)
[2018-02-05 09:18] LABS: Basophils # (A) 0.1 k/uL (0-0.2); Basophils % (A) 1 %; Eosinophils # (A) 0.2 k/uL (0-0.7); Eosinophils % (A) 2 %; Lymphocytes % (A) 17 %; MCHC 32.6 g/dL (31.0-37.0); MCV 88.9 fL (80.0-100.0); Mean Platelet Volume 8.1; Monocytes # (A) 0.8 k/uL (0-1.0); Monocytes % (A) 7 %; Neutrophils # (A) 8.4 k/uL (1.3-7.7); Neutrophils % (A) 73 %; Platelet Count 196 k/uL (150-450); RBC 4.83 m/uL (4.30-5.90); RDW 13.7 % (11.5-15.5); WBC 11.6 k/uL (3.8-10.6)
[2018-02-05 09:32] LABS: Anion Gap 8 mmol/L; Blood Urea Nitrogen 10 mg/dL (9-20); Calcium 8.6 mg/dL (8.4-10.2); Carbon Dioxide 27 mmol/L (22-30); Chloride 105 mmol/L (98-107); Glucose 110 mg/dL (74-99); Potassium 3.8 mmol/L (3.5-5.1); Sodium 140 mmol/L (137-145)
[2018-02-05] MEDS: PANTOPRAZOLE 40 MG/10 ML VIAL IVP SCH ×2 (09:41→20:59)
[2018-02-05] MEDS: HEPARIN SODIUM,PORCINE 5,000 UNIT/ML 1 ML VIAL SQ SCH ×2 (09:41→20:58)
[2018-02-05] MEDS: SPIRONOLACTONE 25 MG TAB PO SCH (09:41)
[2018-02-05] MEDS: FUROSEMIDE 40 MG TAB PO SCH (09:42)
[2018-02-05] MEDS: GABAPENTIN 300 MG CAP PO SCH ×2 (09:46→20:58)
[2018-02-05] MEDS: METOPROLOL SUCCINATE (ER) 100 MG TAB.ER.24H PO SCH (09:47)
[2018-02-05] MEDS: busPIRone HCl 5 MG TAB PO SCH ×2 (09:48→20:57)
[2018-02-05] MEDS: SACUBITRIL/VALSARTAN 24 MG-26 MG TABLET PO SCH (09:48)
[2018-02-05] MEDS: SERTRALINE 100 MG TAB PO SCH (09:49)
[2018-02-05 11:38] LABS: Glucose,Whole Blood 114 mg/dL (75-99)
[2018-02-05 13:15] VITALS: RESP 16
[2018-02-05] MEDS: LEVOFLOXACIN 750MG-D5W PMX 750 MG in DEXTROSE/WATER 1 150ML.BAG IVPB SCH (13:33)
--- NOTE | 2018-02-05 17:07 | PN ---
PROGRESS NOTE DATE OF SERVICE: 02/05/2018 This 52-year-old gentleman who was admitted with acute sigmoid diverticulitis is being closely monitored. White count is slightly elevated. Patient is on broad-spectrum IV antibiotics. Surgery is recommending conservative line of management. Pain is slightly better. No chest pain. No palpitations. No fever. PHYSICAL EXAMINATION: Alert and oriented x3. Pulse 62, blood pressure 140/65, respirations 16, temperature 98.0, pulse ox 97% on room air. HEENT: Normal. Oral mucosa moist. NECK: No jugular venous distention. No carotid bruit. No lymph node enlargement. CARDIOVASCULAR: S1, S2 muffled. RESPIRATORY: Breath sounds diminished in the bases. A few scattered rhonchi. No crackles. ABDOMEN: Soft, obese. Mild diffuse discomfort. No guarding. No rigidity. No mass palpable. NERVOUS SYSTEM: No focal deficit. LABS: WBC 11.6, hemoglobin 14. Accu-Cheks noted. ASSESSMENT: 1. Acute severe sigmoid diverticulosis with severe pain, present on admission. 2. History of atrial flutter/fibrillation. 3. History of asthma. 4. History of congestive heart failure. 5. Chronic obstructive pulmonary disease. 6. Diabetes mellitus, type 2. 7. Hypertension. 8. History of degenerative joint disease. 9. History of pneumonia. 10.Sleep apnea. 11.History of supraventricular tachycardia. 12.History of nonischemic cardiomyopathy with AICD. 13.History of cardiac catheterization. 14.History of anxiety, depression. 15.History of nicotine dependence. 16.History of tetrahydrocannabinol. RECOMMENDATIONS AND DISCUSSION: I recommend to continue current medication, continue with monitoring, symptomatic treatment. At this time I recommend monitoring the patient closely. Continue the antibiotics. Advance diet per Surgery. Further recommendations to follow. MMODL / IJN: [id number] /
[2018-02-05 17:19] LABS: Glucose,Whole Blood 104 mg/dL (75-99)
[2018-02-05 20:44] LABS: Glucose,Whole Blood 111 mg/dL (75-99)
[2018-02-06] MEDS: PIPERACILLIN-TAZOBACTAM 3.375 GM in SODIUM CHLORIDE 0.9% 100 ML IVPB SCH ×3 (00:15→16:52)
[2018-02-06] MEDS: traMADol 50 MG TAB PO SCH ×3 (00:15→16:57)
[2018-02-06] MEDS: metroNIDAZOLE-NS PMX 500 MG in SALINE 1 100ML.BAG IVPB SCH ×3 (05:45→16:53)
[2018-02-06 06:49] LABS: Glucose,Whole Blood 118 mg/dL (75-99)
[2018-02-06] MEDS: INSULIN ASPART 100 UNIT/ML 1 ML 10 ML VIAL SQ SCH ×3 (07:30→16:59)
[2018-02-06] MEDS: IPRATROPIUM-ALBUTEROL 3 ML NEB INHALATION SCH ×3 (08:32→15:31)
[2018-02-06] MEDS: SYMBICORT 160-4.5 MCG INHALER INHALATION SCH ×2 (08:42→12:12)
[2018-02-06] MEDS: GABAPENTIN 300 MG CAP PO SCH (08:52)
[2018-02-06] MEDS: busPIRone HCl 5 MG TAB PO SCH (08:52)
[2018-02-06] MEDS: HEPARIN SODIUM,PORCINE 5,000 UNIT/ML 1 ML VIAL SQ SCH (08:52)
[2018-02-06] MEDS: METOPROLOL SUCCINATE (ER) 100 MG TAB.ER.24H PO SCH (08:53)
[2018-02-06] MEDS: SERTRALINE 100 MG TAB PO SCH (08:53)
[2018-02-06] MEDS: FUROSEMIDE 40 MG TAB PO SCH (08:53)
[2018-02-06] MEDS: SACUBITRIL/VALSARTAN 24 MG-26 MG TABLET PO SCH (08:53)
[2018-02-06] MEDS: SPIRONOLACTONE 25 MG TAB PO SCH (08:54)
[2018-02-06] MEDS: NICOTINE 14MG/24HR PATCH TRANSDERM SCH (08:58)
[2018-02-06] MEDS: PANTOPRAZOLE 40 MG/10 ML VIAL IVP SCH (08:59)
[2018-02-06 10:24] LABS: Anion Gap 7 mmol/L; Blood Urea Nitrogen 8 mg/dL (9-20); Calcium 8.8 mg/dL (8.4-10.2); Carbon Dioxide 25 mmol/L (22-30); Chloride 107 mmol/L (98-107); Glucose 119 mg/dL (74-99); Potassium 3.9 mmol/L (3.5-5.1); Sodium 139 mmol/L (137-145)
[2018-02-06 10:26] LABS: Basophils % (A) 0 %; Eosinophils # (A) 0.3 k/uL (0-0.7); Eosinophils % (A) 3 %; HGB 13.8 gm/dL (13.0-17.5); Lymphocytes # (A) 1.2 k/uL (1.0-4.8); Lymphocytes % (A) 15 %; MCH 28.5 pg (25.0-35.0); Mean Platelet Volume 7.8; Monocytes # (A) 0.4 k/uL (0-1.0); Monocytes % (A) 5 %; Neutrophils # (A) 5.8 k/uL (1.3-7.7); Neutrophils % (A) 75 %; Platelet Count 232 k/uL (150-450); RBC 4.83 m/uL (4.30-5.90); RDW 13.4 % (11.5-15.5); WBC 7.8 k/uL (3.8-10.6)
[2018-02-06 10:47] VITALS: BMI 50.0
[2018-02-06 11:02] LABS: Glucose,Whole Blood 121 mg/dL (75-99)
[2018-02-06 12:46] VITALS: BP 135/73; PULSE 60; TEMP 97.9
[2018-02-06] MEDS: LEVOFLOXACIN 750MG-D5W PMX 750 MG in DEXTROSE/WATER 1 150ML.BAG IVPB SCH (13:14)
[2018-02-06] MEDS: SODIUM CHLORIDE 0.9% 1,000 ML IV SCH (13:16)
[2018-02-06 17:00] LABS: Glucose,Whole Blood 109 mg/dL (75-99)
--- NOTE | 2018-02-07 08:20 | DS ---
DISCHARGE SUMMARY FINAL DIAGNOSES: 1. Acute sigmoid diverticulosis with severe pain, present on admission. 2. History of atrial fibrillation. 3. History of asthma. 4. History of congestive heart failure. 5. Chronic obstructive pulmonary disease. 6. Diabetes type 2. 7. Hypertension. 8. History of DJD. 9. History pneumonia. 10.Sleep apnea. 11.Supraventricular tachycardia. 12.Nonischemic cardiomyopathy with AICD. 13.History of cardiac catheterization. 14.History of anxiety, depression. 15.History of nicotine dependence. DISPOSITION: Patient will be discharged in stable condition with guarded prognosis. HISTORY OF PRESENT ILLNESS: This 52-year-old gentleman with the past medical history of multiple medical problems, was admitted significant diverticulitis. The patient was treated symptomatically. Patient improved significantly. Surgery saw the patient. White count was normal. The patient will be discharged in stable condition with the following advice and medications. CARDIAC: Soft, low residue. Follow up with Dr. Marya Crooks in 2-3 days. Follow up with Dr. Castellanos as advised. MEDICATIONS: 1. Eliquis 5 mg p.o. b.i.d. 2. Symbicort 160/4.5 two puffs b.i.d. 3. BuSpar 7.5 b.i.d. 4. Lasix 40 mg b.i.d. 5. Neurontin 600 mg p.o. b.i.d. 6. Glucophage 500 mg with meals b.i.d. with meals. 7. Toprol-XL 100 mg q.a.m. 9. Zoloft 100 mg. 10.Aldactone 25 mg q.a.m. 11.Ultram 50 mg q.8h p.r.n. 12.Augmentin 875 mg 1 p.o. b.i.d. 13.Multivitamins 1 p.o. daily. 14.Habitrol 14 daily. MMODL / IJN: [id number] / MTDD
== END 2018-02-06 19:30 | disposition home or self-care (01) ==
LOC: EC 09:32 → INTOOBSV 12:43 → 3NMEDONC 12:43 → UNDODISIN 02-06 19:30
PROVIDERS: ADMIT Hospitalist; ATTEND Hospitalist
DX: K57.32 Diverticulitis of large intestine without perforation or abscess without bleeding (principal); I42.8 Other cardiomyopathies; I47.1 Supraventricular tachycardia; I48.92 Unspecified atrial flutter; F17.200 Nicotine dependence, unspecified, uncomplicated; G47.33 Obstructive sleep apnea (adult) (pediatric); E11.42 Type 2 diabetes mellitus with diabetic polyneuropathy; Z79.84 Long term (current) use of oral hypoglycemic drugs; I11.0 Hypertensive heart disease with heart failure; I48.91 Unspecified atrial fibrillation; I50.9 Heart failure, unspecified; J44.9 Chronic obstructive pulmonary disease, unspecified; M19.90 Unspecified osteoarthritis, unspecified site; Z79.01 Long term (current) use of anticoagulants; Z79.51 Long term (current) use of inhaled steroids; Z83.3 Family history of diabetes mellitus; Z87.01 Personal history of pneumonia (recurrent); Z95.810 Presence of automatic (implantable) cardiac defibrillator; F41.9 Anxiety disorder, unspecified; F32.9 Major depressive disorder, single episode, unspecified; Z79.899 Other long term (current) drug therapy; Z99.89 Dependence on other enabling machines and devices; Z87.09 Personal history of other diseases of the respiratory system; M54.41 Lumbago with sciatica, right side; M54.42 Lumbago with sciatica, left side; G89.29 Other chronic pain; G62.9 Polyneuropathy, unspecified; Z86.14 Personal history of Methicillin resistant Staphylococcus aureus infection
CPT/HCPCS: 96376 ×4; 96361 ×2; 96366 ×3; 96367 ×2; 96372 ×3; 96375 ×2; 96368; 96365; 99285; 36415; 94640 ×5; 80053; 80048 ×2; 82150; 83605; 83690; 85025 ×3; 81003; 83036; 74177; G0378 ×3; J2543 ×3; J2060; J1644 ×3; J2405; J3486; J1170 ×2; J1956 ×3; C9113 ×3; Q9967; 96374

== ENCOUNTER 2018-03-06 09:23 | Day surgery (SDC) | payer OTHER ==
[2018-03-01 15:59] VITALS: BMI 48.0
[2018-03-06] MEDS ORDERED: LACTATED RINGERS 1,000 ML IV ONE (09:58)
[2018-03-06 09:59] VITALS: TEMP 97.4
[2018-03-06 09:59] LABS: Glucose,Whole Blood 124 mg/dL (75-99)
[2018-03-06] MEDS ORDERED: GLYCOPYRROLATE 0.2 MG/ML 2 ML VIAL ONE (10:12)
[2018-03-06] MEDS ORDERED: KETAMINE 10 MG/ML 20 ML VIAL ONE (10:12)
[2018-03-06] MEDS ORDERED: LIDOCAINE 1% INJ 10MG/ML (20 ML MDV) ONE (10:12)
[2018-03-06] MEDS ORDERED: PROPOFOL 10 MG/ML 20 ML VIAL IV ONE (10:12)
[2018-03-06] MEDS ORDERED: MIDAZOLAM 2 MG/2 ML VIAL ONE (10:12)
--- NOTE | 2018-03-06 10:15 | P.GSHP ---
History of Present Illness H&P Date: 03/06/18 Chief Complaint: diverticulitis This is a 52-year-old male who presents today for colonoscopy. Patient has had history of diverticulitis. Past Medical History Past Medical History: Atrial Fibrillation, Atrial Flutter, Asthma, Heart Failure , COPD, Diabetes Mellitus, Hypertension, Osteoarthritis (OA), Pneumonia, Sleep Apnea/CPAP/BIPAP, Supraventricular Tachycardia (SVT) Additional Past Medical History / Comment(s): bilateral hands/feet, bilateral carpal tunnel syndrome, chronic low back pain with bilateral sciatica, bilateral tinnitis. History of Any Multi-Drug Resistant Organisms: MRSA Date of last positivie culture/infection: 10/19/15 MDRO Source:: LEFT LEG Past Surgical History: AICD, Cardiac Ablation, Heart Catheterization, Pacemaker Additional Past Surgical History / Comment(s): colonoscopy, teeth extractions, pain procedures, Past Anesthesia/Blood Transfusion Reactions: No Reported Reaction Type of Cardiac Device: Permanent Pacemaker, AICD Device Placement Date:: 2015 Smoking Status: Current every day smoker - Past Family History Father History Unknown: Yes Additional Family Medical History / Comment(s): Father medical hx is unknown. Mother Family Medical History: Diabetes Mellitus Additional Family Medical History / Comment(s): Mother is "borderline" diabetic. She is alive and in her mid 70s. Medications and Allergies Home Medications Medication Instructions Recorded Confirmed Type Budesonide-Formot 160-4.5 Mcg 2 puff INHALATION RT-DAILY 11/04/14 03/01/18 History [Symbicort 160-4.5 Mcg Inhaler] Spironolactone [Aldactone] 25 mg PO QAM 10/12/15 03/01/18 History metFORMIN HCL [Glucophage] 500 mg PO BID-W/MEALS 10/12/15 03/01/18 History Metoprolol Succinate (ER) [Toprol 100 mg PO QAM 10/11/16 03/01/18 History XL] Apixaban [Eliquis] 5 mg PO BID 11/23/16 03/06/18 History busPIRone HCL [Buspar] 7.5 mg PO BID 01/22/17 03/01/18 History Metoprolol Succinate [Toprol XL] 200 mg PO QAM 08/22/17 03/06/18 History Sertraline [Zoloft] 100 mg PO DAILY 08/22/17 03/01/18 History traMADol HCL [Ultram] 50 mg PO Q8H 08/22/17 03/01/18 History Furosemide [Lasix] 40 mg PO DAILY 02/04/18 03/01/18 History Gabapentin [Neurontin] 600 mg PO BID 02/04/18 03/01/18 History Multivitamins, Thera [Multivitamin] 1 tab PO DAILY #10 tablet 02/06/18 03/01/18 Rx Sacubitril/Valsartan [Entresto 49 1 each PO QAM 03/01/18 03/01/18 History mg-51 mg Tablet] Allergies Allergy/AdvReac Type Severity Reaction Status Date / Time No Known Allergies Allergy Verified 02/04/18 10:26 Surgical - Exam Vital Signs Temp Pulse Resp BP Pulse Ox 97.4 F L 69 16 130/74 97 03/06/18 09:58 03/06/18 09:58 03/06/18 09:58 03/06/18 09:58 03/06/18 09:58 - General well developed, well nourished, no distress - Eyes PERRL - ENT normal pinna - Neck no masses - Respiratory normal expansion - Cardiovascular Rhythm: regular - Abdomen Abdomen: soft, non tender Results - Labs Abnormal Lab Results - Last 24 Hours (Table) 03/06/18 Range/Units 09:55 POC Glucose (mg/dL) 124 H (75-99) mg/dL Assessment and Plan Assessment: History of diverticulitis. We'll perform colonoscopy.
[2018-03-06 10:33] VITALS: RESP 18
[2018-03-06 10:46] VITALS: BP 143/79; PULSE 78
--- NOTE | 2018-03-06 11:39 | P.OP ---
Date of Procedure: 03/06/18 Preoperative Diagnosis: Diverticulitis Postoperative Diagnosis: Diverticulosis Procedure(s) Performed: Colonoscopy Anesthesia: MAC Surgeon: Merrick Castellanos Pathology: none sent Condition: stable Disposition: PACU Description of Procedure: The patient was placed on the endoscopy table lateral position. He received IV sedation. Digital rectal exam was performed which revealed no abnormalities. The prostate was symmetric without nodules. Flexible colonoscope was then placed patient anus passed throughout the entire colon. The ileocecal valve was visualized. The cecum, ascending and transverse colon appeared normal. In the descending and sigmoid colon was mild diverticular changes. Scope was then brought back the rectum and this appeared normal. Scope was withdrawn for patient.
== END 2018-03-06 11:17 | disposition home or self-care (01) ==
LOC: ORWHC2ENDO 09:23
PROVIDERS: ATTEND Surgery
DX: K57.30 Diverticulosis of large intestine without perforation or abscess without bleeding (principal); I48.91 Unspecified atrial fibrillation; I48.92 Unspecified atrial flutter; I11.0 Hypertensive heart disease with heart failure; I50.9 Heart failure, unspecified; J44.9 Chronic obstructive pulmonary disease, unspecified; E11.9 Type 2 diabetes mellitus without complications; M19.90 Unspecified osteoarthritis, unspecified site; I47.1 Supraventricular tachycardia; G56.03 Carpal tunnel syndrome, bilateral upper limbs; M54.42 Lumbago with sciatica, left side; M54.41 Lumbago with sciatica, right side; G89.29 Other chronic pain; G47.33 Obstructive sleep apnea (adult) (pediatric); H93.13 Tinnitus, bilateral; F17.200 Nicotine dependence, unspecified, uncomplicated; E66.01 Morbid (severe) obesity due to excess calories; Z68.42 Body mass index [BMI] 45.0-49.9, adult; Z95.810 Presence of automatic (implantable) cardiac defibrillator; Z99.89 Dependence on other enabling machines and devices; Z79.01 Long term (current) use of anticoagulants; Z79.84 Long term (current) use of oral hypoglycemic drugs; Z79.891 Long term (current) use of opiate analgesic; Z79.51 Long term (current) use of inhaled steroids; Z79.899 Other long term (current) drug therapy; Z86.14 Personal history of Methicillin resistant Staphylococcus aureus infection
CPT/HCPCS: 45378; J2250; J2001; J2704

== ENCOUNTER → 2018-05-28 | Outpatient (CLI) | payer MEDICARE, OTHER ==
[2018-05-28 13:53] VITALS: BP 178/107; PULSE 78; RESP 16; TEMP 98.2
--- NOTE | 2018-05-28 14:25 | P.PN ---
Subjective Progress Note Date: 05/28/18 This is a 52-year-old morbidly obese gentleman with history of chronic lower back pain due to lumbar spondylosis without myelopathy. The patient has significant cardiac disease with pacemaker and he takes Eliquis on daily basis. He had lumbar medial branch block and RFA and also lumbar epidural steroid injection with short-lived results. He still has pain across his lower back with radiation to the lower extremities down to the knee level bilaterally. The patient states that tramadol does not help his pain and he stopped using it a few months ago. Today, pt denies new-onset weakness, bowel/bladder incontinence, or any other signs or symptoms of cauda equina syndrome. There are no signs of acute intoxication, and no indications of medication diversion or overuse. In addition to above, 13-point review of systems is also negative for chest pain, shortness of breath, changes in vision, changes in hearing, new onset weakness, abdominal pain, diarrhea, extreme fatigue, malaise, fever, skin changes, homicidal or suicidal ideation, or bowel or bladder incontinence. Vital Signs: Reviewed in EMR Gen: AAOx3, NAD HEENT: PERRLA,hearing grossly normal Pulm: resp unlabored,CTA Heart:S1,S2, No Mur Neck: supple, trachea midline Neuro exam of the lower extremities: Normal muscle strength bilaterally, absent deep tendon reflexes bilaterally. Straight leg raising test: Negative bilaterally Jose's test: Positive on the right side Positive tenderness around the right sacroiliac joint Facet loading test: Positive Neuro: CN II-XII grossly intact, Imaging: Reviewed in EMR/chart Assessment: Morbid obesity Lumbar spondylosis without myelopathy Right sacroiliitis Plan: 1. Explanation: Opioid and psychological risk scores were reviewed. Diagnoses, prognoses, and multiple treatment options including but not limited to physical therapy, interventional therapies, adjuvant medical therapies, narcotic medication therapies, and surgery were discussed with the patient and all questions were answered to the patient's satisfaction. 2. Opioid agreement: Signed with the patient and the patient is warned not to use opioids while driving or before driving and not to combine opioids with benzodiazepines or alcohol. 3. Counseling: The patient was counseled extensively on SMOKING CESSATION, BODY MASS INDEX, EXERCISE. Specifically, the patient was instructed regarding the importance of smoking cessation, obesity, and exercise in the context of both chronic pain and overall health. 4. Procedures: Schedule right sacroiliac joint steroid injection under fluoroscopic guidance. The patient does not have to stop his request however we are going to use a 25-gauge needle if possible and hold pressure for a few minutes after the procedure is done. 5. Consultations: None 6. Investigations: None 7. Medications: Neurontin 300 mg 3 times a day 8. Disposition: Return to the above-mentioned procedure as soon as possible 9. Maps were reviewed and were appropriate. PQRS measures: 1-Patient's medications are documented in the chart. 2-Tobacco use is positive, counseling given 3-Patient has not had a pneumococcal vaccine. 4-Advanced care planning discussed, patient unable to give 5-Opioid contract signed with the patient. 6-Pain positive, follow-up visit or procedure scheduled 7-Patient's blood pressure measured and documented above normal limits. The patient will follow up with his PCP. 8-Patient's weight was measured, and body mass index ABOVE the normal limits, and counseling was done. Patient instructed to follow up with PCP. 9-Patient WAS NOT identified as an unhealthy alcohol user. Objective - Vital Signs Vital signs: Vital Signs Temp 98.2 F 05/28/18 13:44 Pulse 78 05/28/18 13:44 Resp 16 05/28/18 14:00 BP 178/107 05/28/18 13:44 Pulse Ox 98 05/28/18 13:44 Intake & Output 05/27/18 05/28/18 05/28/18 18:59 06:59 18:59 Weight 176.901 kg
== END | disposition home or self-care (01) ==
LOC: PNWHC3 13:37
PROVIDERS: ATTEND Anesthesiology
DX: G89.29 Other chronic pain (principal); M47.816 Spondylosis without myelopathy or radiculopathy, lumbar region; M46.1 Sacroiliitis, not elsewhere classified; E66.01 Morbid (severe) obesity due to excess calories; I51.9 Heart disease, unspecified; Z95.0 Presence of cardiac pacemaker; Z79.02 Long term (current) use of antithrombotics/antiplatelets; Z72.0 Tobacco use; Z71.89 Other specified counseling; Z68.42 Body mass index [BMI] 45.0-49.9, adult
CPT/HCPCS: 99211

== ENCOUNTER 2018-06-17 06:18 | Day surgery (SDC) | payer MEDICARE, OTHER ==
[2018-06-11 15:50] VITALS: BMI 48.7
[2018-06-17 06:46] LABS: Glucose,Whole Blood 99 mg/dL (75-99)
[2018-06-17 06:47] VITALS: RESP 16; TEMP 97.6
--- NOTE | 2018-06-17 07:16 | P.PCN ---
Date of Procedure: 06/17/18 Operative Findings: Procedure: Right Sacroiliac joint injection Preoperative diagnosis: Sacroiliitis Postoperative diagnosis: Sacroiliitis Complication: none Anesthesia: Local only Description of the procedure: procedure risk and benefits discussed with the patient, including but not limited, risk of infection and bleeding, and allergic reaction to the medication and incomplete pain relief. Patient agreed and signed consent. Patient was taken to the room and placed in a prone position. Chlorhexidine was used to cleanse the skin. Under sterile conditions patient skin was anesthetized 1% lidocaine. Subcutaneous tissues were also anesthetized with a total 5 mL of 1% lidocaine. After that 25 spinal needle was advanced through the anesthetized location. Needle was advanced into the inferior portion of the sacroiliac joint. IV contrast was not used to confirm spread within the joint. After adequate spread was achieved, 2.5 ML's of 0.5% ropivacaine with 10 mg of dexamethasone was injected into the joint. Patient tolerated the procedure well. Sent to the recovery room in stable condition. Patient will follow up in the clinic in 6-8 weeks' time
[2018-06-17 07:34] VITALS: BP 123/73; PULSE 63
--- NOTE | 2018-06-17 09:21 | FL ---
EXAMINATION TYPE: FL guided pain mgmt statistic DATE OF EXAM: 06/17/2018 HISTORY: Flouroscopy time 2 seconds of fluoroscopy provided. IMPRESSION: 1. Fluoroscopy time.
== END 2018-06-17 07:39 | disposition home or self-care (01) ==
LOC: ORPAIN 06:18
PROVIDERS: ATTEND Hospitalist
DX: G89.29 Other chronic pain (principal); M46.1 Sacroiliitis, not elsewhere classified; M47.26 Other spondylosis with radiculopathy, lumbar region; E66.01 Morbid (severe) obesity due to excess calories; Z68.42 Body mass index [BMI] 45.0-49.9, adult; Z79.01 Long term (current) use of anticoagulants; Z95.0 Presence of cardiac pacemaker
CPT/HCPCS: J1100; G0260; 27096

== ENCOUNTER → 2018-07-04 | Outpatient (CLI) | payer MEDICARE, OTHER ==
--- NOTE | 2018-07-05 13:22 | CT ---
EXAMINATION TYPE: CT lumbar spine wo con DATE OF EXAM: 07/04/2018 COMPARISON: None HISTORY: Lower back pain CT DLP: 2731.6 mGycm CONTRAST: None TECHNIQUE: CT of the lumbar spine is performed on a spiral scan at 3 mm thick sections. Reconstructed images are performed in the coronal and sagittal planes. FINDINGS: T12-L1: No focal disc herniation or significant disc bulge is evident. No spinal canal stenosis or neural foraminal stenosis is present. L1-L2: No focal disc herniation or significant disc bulge is evident. No spinal canal stenosis or n eural foraminal stenosis is present. Facet hypertrophy has some posterior lateral thecal sac contact. L2-L3: No focal disc herniation or significant disc bulge is evident. No spinal canal stenosis or n eural foraminal stenosis is present. Facet hypertrophy greater on the right has posterior lateral the dorcas sac compression. Mild to moderate foraminal stenosis is present. L3-L4: No focal disc herniation or significant disc bulge is evident. No spinal canal stenosis or n eural foraminal stenosis is present. Facet hypertrophy is present. This has posterior lateral thecal sac compression on the right. The neural foramen are patent vacuum facet phenomenon is present on the right. L4-L5: No focal disc herniation or significant disc bulge is evident. No spinal canal stenosis or n eural foraminal stenosis is present. Facet hypertrophy is present right greater than left. There is m oderate bilateral foraminal stenosis. No spinal canal stenosis is present. L5-S1: No focal disc herniation or significant disc bulge is evident. No spinal canal stenosis or n eural foraminal stenosis is present. Lateral recess narrowing is present bilaterally. This may be gre ater on the left. Facet hypertrophy is present no AP spinal canal stenosis is present. There is loss of disc height L5-S1. Vertebral alignment appears normal. Findings appear stable over the interval. COMPARISON: No significant interval changes evident. IMPRESSION: 1. Degenerative disc changes L5-S1. 2. Facet hypertrophy slightly greater on the right through the lumbar spine which may has some backhaul driver ior lateral thecal sac compression through multiple levels. 3. Mild to moderate foraminal narrowing discussed above
== END | disposition home or self-care (01) ==
LOC: RADCTMAIN 16:42
PROVIDERS: ATTEND Physician Assistant
DX: M48.061 Spinal stenosis, lumbar region without neurogenic claudication (principal); M51.37 Other intervertebral disc degeneration, lumbosacral region; M53.86 Other specified dorsopathies, lumbar region
CPT/HCPCS: 72131

== ENCOUNTER → 2018-07-25 | Outpatient (CLI) | payer MEDICARE, OTHER ==
[2018-07-25 12:49] VITALS: BP 179/103; PULSE 61; RESP 18
--- NOTE | 2018-07-25 13:33 | P.PN ---
Subjective Progress Note Date: 07/25/18 This is a follow-up visit for this 52 years old male with a chronic history of severe low back pain, continued to have severe low back pain after interventional pain management , we have done radiofrequency ablation of the medial branch lumbar area ,and also we have done lumbar epidural steroid injections, the and the pain in the low back area is constant and increased with any activity and patient also complaining of some numbness and tingling sensation in the feet bilaterally, he denies any motor or sensory deficit he denies any change in the bowel movements or urination , he denies any side effect of the medication he denies any excessive drowsiness and sleepiness , patient had computed tomography scan of the lumbar spine recently and it showed that he had L5-S1 facet arthropathy Patient currently using Neurontin 300 mg 3 times a day he denies any side effect of the medication Physical Examinations : -Constitutiona : Cooperative , not in acute distress . -HEENT : nech ; supple , no Lymphadenopathy , normal thyroid size . eyes : no ptosis , no icterus, no photophobia . . - Genitourinary : Defferred . - neurologic : Cranial nerve II to XII intact , no focal neurological deffecit . -psychatric : alert , oriented X 3 , appropriate affect , intact judgment and insight . -Lymphatic : no Lymphadenopathy . - musculoskeltal : , Lumber spine = normal moter stegnth lower extremities ,thigh and legs .5/5 deep tendon reflexes : normal Knee Jerk , normal ankle Jerk . positive lumber facet Loading Test Assessment and plan= chronic low back pain secondary to lumbar degenerative disc disease , lumbar spondylosis with lumbar facet arthropathy , Patient had no benefit from interventional pain management Patient could benefit from physical therapy/TENS unit , will refer him to physical therapy for evaluation because patient had a pacemaker Prescription refill for Neurontin 300 mg every 8 hours dispense 90 with 3 refills Interventional pain management=none Refferal = physical therapy Follow-up= 4 months , - PQRS measures = - Patient's medications are documented in the chart. -Tobacco use is positive ,and counseling.Given. -Patient's has received pneumococcal vaccine. -Advanced care planning discussed, patient not eligible. -Opiate contract not signed. -Pain positive and follow-up visit/procedure is scheduled. -Patient's blood pressure measured [ 179//103 ] , and documented in the record ,and patient will follow up with the primary care. -Patient's weight was measured and body mass index [ 47 ] above the normal limits and counseling was done. and patient instructed to follow- up with the primary care physician. -Patient was not identified as an unhealthy alcohol user Objective - Vital Signs Vital signs: Vital Signs Temp Pulse 61 07/25/18 12:39 Resp 18 07/25/18 12:39 BP 179/103 07/25/18 12:39 Pulse Ox 98 07/25/18 12:39 Intake & Output 07/24/18 07/25/18 07/25/18 18:59 06:59 18:59 Weight 176.901 kg
== END | disposition home or self-care (01) ==
LOC: PNWHC3 12:09
PROVIDERS: ATTEND Specialist
DX: G89.29 Other chronic pain (principal); M51.36 Other intervertebral disc degeneration, lumbar region; M47.816 Spondylosis without myelopathy or radiculopathy, lumbar region; M46.86 Other specified inflammatory spondylopathies, lumbar region; Z79.899 Other long term (current) drug therapy; Z72.0 Tobacco use; Z71.6 Tobacco abuse counseling; Z95.0 Presence of cardiac pacemaker
CPT/HCPCS: 99211

== ENCOUNTER 2018-12-27 07:18 | Emergency (ER) | payer MEDICARE, OTHER ==
[2018-12-27] MEDS ORDERED: methylPREDNISolone SOD SUCCI 125 MG/2 ML VIAL IV STA (07:40)
[2018-12-27] MEDS ORDERED: IPRATROPIUM-ALBUTEROL 3 ML NEB INHALATION STA ×2 (07:40→09:32)
--- NOTE | 2018-12-27 07:49 | ED ---
SOB HPI - General Chief Complaint: Shortness of Breath Stated Complaint: SOB, Chest Pain Time Seen by Provider: 12/27/18 07:27 Source: patient, RN notes reviewed Mode of arrival: ambulatory Limitations: no limitations - History of Present Illness Initial Comments: This is a 53-year-old male with a history of COPD as well as other medical problems including cardiac disease who presents with complaints of 2-3 days of shortness of breath is getting worse with fever chills sweats cough of green phlegm and chest tightness. He states it's unaffected by his home medications. No other modifying factors or complaints at this time. MD Complaint: shortness of breath, cough - Related Data Home Medications Medication Instructions Recorded Confirmed Budesonide-Formot 160-4.5 Mcg 2 puff INHALATION RT-DAILY 11/04/14 12/27/18 [Symbicort 160-4.5 Mcg Inhaler] Spironolactone [Aldactone] 25 mg PO QAM 10/12/15 12/27/18 metFORMIN HCL [Glucophage] 500 mg PO BID-W/MEALS 10/12/15 12/27/18 Apixaban [Eliquis] 5 mg PO BID 11/23/16 12/27/18 busPIRone HCL [Buspar] 7.5 mg PO BID 01/22/17 12/27/18 Metoprolol Succinate [Toprol XL] 200 mg PO QAM 08/22/17 12/27/18 Sertraline [Zoloft] 100 mg PO DAILY 08/22/17 12/27/18 Furosemide [Lasix] 40 mg PO DAILY PRN 02/04/18 12/27/18 Gabapentin [Neurontin] 600 mg PO BID 02/04/18 12/27/18 Sacubitril/Valsartan [Entresto 49 1 tab PO QAM 03/01/18 12/27/18 mg-51 mg Tablet] guaiFENesin [Mucinex] 1,200 mg PO Q12H PRN 12/27/18 12/27/18 Previous Rx's Medication Instructions Recorded Albuterol Inhaler [Ventolin Hfa 2 puff INHALATION Q6HR PRN #1 12/27/18 Inhaler] inhaler Azithromycin [Zithromax Z-pack] 250 mg PO DIRECTED #6 tab 12/27/18 predniSONE 20 mg PO BID #10 tab 12/27/18 Allergies Allergy/AdvReac Type Severity Reaction Status Date / Time No Known Allergies Allergy Verified 12/27/18 08:23 Review of Systems ROS Statement: Those systems with pertinent positive or pertinent negative responses have been documented in the HPI. ROS Other: All systems not noted in ROS Statement are negative. Past Medical History Past Medical History: Atrial Fibrillation, Atrial Flutter, Asthma, Heart Failure, COPD, Diabetes Mellitus, Hypertension, Osteoarthritis (OA), Pneumonia, Sleep Apnea/CPAP/BIPAP, Supraventricular Tachycardia (SVT) Additional Past Medical History / Comment(s): bilateral hands/feet, bilateral carpal tunnel syndrome, chronic low back pain with bilateral sciatica, bilateral tinnitis. History of Any Multi-Drug Resistant Organisms: MRSA Date of last positivie culture/infection: 10/19/15 MDRO Source:: LEFT LEG Past Surgical History: AICD, Cardiac Ablation, Heart Catheterization, Pacemaker Additional Past Surgical History / Comment(s): colonoscopy, teeth extractions, pain procedures, Past Anesthesia/Blood Transfusion Reactions: No Reported Reaction Type of Cardiac Device: Permanent Pacemaker, AICD Device Placement Date:: 2015 Past Psychological History: Anxiety Smoking Status: Current every day smoker Past Alcohol Use History: Rare Past Drug Use History: None Reported - Past Family History Father History Unknown: Yes Mother Family Medical History: Diabetes Mellitus Additional Family Medical History / Comment(s): Mother is "borderline" diabetic. She is alive and in her mid 70s. General Exam - General Exam Comments Initial Comments: This is a well-developed well-nourished awake alert oriented 3 male Limitations: no limitations General appearance: anxious, in distress Head exam: Present: atraumatic, normocephalic, normal inspection Eye exam: Present: normal appearance, PERRL, EOMI. Absent: scleral icterus, co njunctival injection, periorbital swelling ENT exam: Present: normal exam, mucous membranes moist Neck exam: Present: normal inspection, full ROM, other (Stridor JVD or bruits). Absent: tenderness, meningismus, lymphadenopathy Respiratory exam: Present: wheezes, decreased breath sounds. Absent: respiratory distress, rales, rhonchi, stridor Cardiovascular Exam: Present: regular rate, normal rhythm, normal heart sounds. Absent: systolic murmur, diastolic murmur, rubs, gallop, clicks GI/Abdominal exam: Present: soft, normal bowel sounds. Absent: distended, tenderness, guarding, rebound, rigid Extremities exam: Present: normal inspection, full ROM, normal capillary refill. Absent: tenderness, pedal edema, joint swelling, calf tenderness Back exam: Present: normal inspection Neurological exam: Present: alert, oriented X3, CN II-XII intact Psychiatric exam: Present: normal affect, normal mood Skin exam: Present: warm, dry, intact, normal color. Absent: rash Course Vital Signs 12/27/18 12/27/18 12/27/18 07:23 08:04 08:13 Temperature 97.5 F L Pulse Rate 69 59 L 69 Respiratory 24 16 18 Rate Blood Pressure 146/93 O2 Sat by Pulse 98 Oximetry 12/27/18 12/27/18 10:13 10:22 Temperature Pulse Rate 70 71 Respiratory 16 16 Rate Blood Pressure O2 Sat by Pulse Oximetry - Reevaluation(s) Reevaluation #1: 12/27/18 10:25 Initial reevaluation patient reveals increased aeration the patient was feeling much improved. He still had some diminished breath sounds with wheezes he was ordered a second nebulizer treatment. Medical Decision Making - Medical Decision Making Patient did get improvement in his breathing he is in satisfactory condition for discharge she'll be placed on antibiotics as well as a course of steroids and a rescue inhaler. - Lab Data Result diagrams: 12/27/18 07:35 12/27/18 07:35 Lab Results 12/27/18 12/27/18 12/27/18 Range/Units 07:35 07:35 07:35 WBC 8.3 (3.8-10.6) k/uL RBC 5.24 (4.30-5.90) m/uL Hgb 14.9 (13.0-17.5) gm/dL Hct 47.1 (39.0-53.0) % MCV 89.9 (80.0-100.0) fL MCH 28.4 (25.0-35.0) pg MCHC 31.6 (31.0-37.0) g/dL RDW 13.4 (11.5-15.5) % Plt Count 226 (150-450) k/uL Neutrophils % 67 % Lymphocytes % 20 % Monocytes % 5 % Eosinophils % 5 % Basophils % 2 % Neutrophils # 5.5 (1.3-7.7) k/uL Lymphocytes # 1.7 (1.0-4.8) k/uL Monocytes # 0.4 (0-1.0) k/uL Eosinophils # 0.4 (0-0.7) k/uL Basophils # 0.2 (0-0.2) k/uL PT (9.0-12.0) sec INR (<1.2) APTT (22.0-30.0) sec Sodium 140 (137-145) mmol/L Potassium 4.4 (3.5-5.1) mmol/L Chloride 109 H (98-107) mmol/L Carbon Dioxide 22 (22-30) mmol/L Anion Gap 9 mmol/L BUN 10 (9-20) mg/dL Creatinine 0.71 (0.66-1.25) mg/dL Est GFR (CKD-EPI)AfAm >90 (>60 ml/min/1.73 sqM) Est GFR (CKD-EPI)NonAf >90 (>60 ml/min/1.73 sqM) Glucose 105 H (74-99) mg/dL Calcium 8.5 (8.4-10.2) mg/dL Magnesium 1.9 (1.6-2.3) mg/dL Total Bilirubin 0.6 (0.2-1.3) mg/dL AST 23 (17-59) U/L ALT 20 L (21-72) U/L Alkaline Phosphatase 71 (38-126) U/L Creatine Kinase 91 (55-170) U/L Troponin I (0.000-0.034) ng/mL NT-Pro-B Natriuret Pep 177 pg/mL Total Protein 7.3 (6.3-8.2) g/dL Albumin 3.7 (3.5-5.0) g/dL Influenza Type A RNA (Not Detectd) Influenza Type B (PCR) (Not Detectd) 12/27/18 12/27/18 12/27/18 Range/Units 07:35 07:35 07:40 WBC (3.8-10.6) k/uL RBC (4.30-5.90) m/uL Hgb (13.0-17.5) gm/dL Hct (39.0-53.0) % MCV (80.0-100.0) fL MCH (25.0-35.0) pg MCHC (31.0-37.0) g/dL RDW (11.5-15.5) % Plt Count (150-450) k/uL Neutrophils % % Lymphocytes % % Monocytes % % Eosinophils % % Basophils % % Neutrophils # (1.3-7.7) k/uL Lymphocytes # (1.0-4.8) k/uL Monocytes # (0-1.0) k/uL Eosinophils # (0-0.7) k/uL Basophils # (0-0.2) k/uL PT 9.9 (9.0-12.0) sec INR 0.9 (<1.2) APTT 26.1 (22.0-30.0) sec Sodium (137-145) mmol/L Potassium (3.5-5.1) mmol/L Chloride (98-107) mmol/L Carbon Dioxide (22-30) mmol/L Anion Gap mmol/L BUN (9-20) mg/dL Creatinine (0.66-1.25) mg/dL Est GFR (CKD-EPI)AfAm (>60 ml/min/1.73 sqM) Est GFR (CKD-EPI)NonAf (>60 ml/min/1.73 sqM) Glucose (74-99) mg/dL Calcium (8.4-10.2) mg/dL Magnesium (1.6-2.3) mg/dL Total Bilirubin (0.2-1.3) mg/dL AST (17-59) U/L ALT (21-72) U/L Alkaline Phosphatase (38-126) U/L Creatine Kinase (55-170) U/L Troponin I <0.012 (0.000-0.034) ng/mL NT-Pro-B Natriuret Pep pg/mL Total Protein (6.3-8.2) g/dL Albumin (3.5-5.0) g/dL Influenza Type A RNA Not Detected (Not Detectd) Influenza Type B (PCR) Not Detected (Not Detectd) - EKG Data -: EKG Interpreted by Me (Atrial paced rhythm a 66 SD interval 198 QRS duration 136 QT ) EKG Comments: QT since QTC 442/463 lip bundle-branch block left exodeviation - Radiology Data Radiology results: report reviewed (I did review the imaging and report no acute findings.), image reviewed Disposition Clinical Impression: Acute exacerbation of chronic obstructive pulmonary disease, Acute bronchitis Disposition: HOME SELF-CARE Condition: Good Instructions (If sedation given, give patient instructions): Acute Bronchitis (ED), COPD (Chronic Obstructive Pulmonary Disease) (ED) Additional Instructions: Prescriptions are sent to [facility] pharmacy Prescriptions: predniSONE 20 mg PO BID #10 tab Albuterol Inhaler [Ventolin Hfa Inhaler] 2 puff INHALATION Q6HR PRN #1 inhaler PRN Reason: Dyspnea Azithromycin [Zithromax Z-pack] 250 mg PO DIRECTED #6 tab Is patient prescribed a controlled substance at d/c from ED?: No Referrals: Marya Crooks MD [Primary Care Provider] - 1-2 days
[2018-12-27 07:52] LABS: Basophils # (A) 0.2 k/uL (0-0.2); Basophils % (A) 2 %; Eosinophils # (A) 0.4 k/uL (0-0.7); Eosinophils % (A) 5 %; HCT 47.1 % (39.0-53.0); HGB 14.9 gm/dL (13.0-17.5); Lymphocytes # (A) 1.7 k/uL (1.0-4.8); Lymphocytes % (A) 20 %; MCH 28.4 pg (25.0-35.0); MCHC 31.6 g/dL (31.0-37.0); MCV 89.9 fL (80.0-100.0); Monocytes # (A) 0.4 k/uL (0-1.0); Monocytes % (A) 5 %; Neutrophils # (A) 5.5 k/uL (1.3-7.7); Neutrophils % (A) 67 %; Platelet Count 226 k/uL (150-450); RBC 5.24 m/uL (4.30-5.90); RDW 13.4 % (11.5-15.5); WBC 8.3 k/uL (3.8-10.6)
[2018-12-27 08:02] LABS: INR 0.9 (<1.2); Partial Thromboplastin Time 26.1 sec (22.0-30.0); Prothrombin Time 9.9 sec (9.0-12.0)
--- NOTE | 2018-12-27 08:06 | XR ---
EXAMINATION TYPE: XR chest 2V DATE OF EXAM: 12/27/2018 COMPARISON: Chest x-ray August 22, 2017. HISTORY: Difficulty in breathing. TECHNIQUE: Frontal and lateral views of the chest are obtained. FINDINGS: Exam slightly suboptimal secondary to patient's large body habitus. Improved inspiration on current study. There is no focal air space opacity, pleural effusion, or pneumothorax seen. The ca rdiac silhouette size is mildly enlarged on prior study improved from prior. There is redemonstratio n of dual-lead pacemaker. The osseous structures are intact. IMPRESSION: Cardiomegaly without acute pulmonary process currently.
[2018-12-27 08:14] LABS: African American GFR (CKD) >90 (>60 ml/min/1.73 sqM); Albumin 3.7 g/dL (3.5-5.0); Anion Gap 9 mmol/L; Blood Urea Nitrogen 10 mg/dL (9-20); Calcium 8.5 mg/dL (8.4-10.2); Carbon Dioxide 22 mmol/L (22-30); Chloride 109 mmol/L (98-107); Creatine Kinase 91 U/L (55-170); Glucose 105 mg/dL (74-99); Magnesium 1.9 mg/dL (1.6-2.3); Potassium 4.4 mmol/L (3.5-5.1); Sodium 140 mmol/L (137-145); Total Bilirubin 0.6 mg/dL (0.2-1.3); Total Protein 7.3 g/dL (6.3-8.2)
[2018-12-27 08:15] LABS: ALT 20 U/L (21-72); AST 23 U/L (17-59); Alkaline Phosphatase 71 U/L (38-126)
[2018-12-27 10:51] VITALS: BP 138/78; PULSE 72; RESP 18; TEMP 97.9
== END 2018-12-27 10:50 | disposition home or self-care (01) ==
LOC: EC 07:18
DX: J44.0 Chronic obstructive pulmonary disease with (acute) lower respiratory infection (principal); J20.9 Acute bronchitis, unspecified; J44.1 Chronic obstructive pulmonary disease with (acute) exacerbation; I48.91 Unspecified atrial fibrillation; I11.0 Hypertensive heart disease with heart failure; I50.9 Heart failure, unspecified; E11.9 Type 2 diabetes mellitus without complications; G89.29 Other chronic pain; G47.30 Sleep apnea, unspecified; F41.9 Anxiety disorder, unspecified; F17.200 Nicotine dependence, unspecified, uncomplicated; Z79.01 Long term (current) use of anticoagulants; Z79.51 Long term (current) use of inhaled steroids; Z79.84 Long term (current) use of oral hypoglycemic drugs; Z79.899 Other long term (current) drug therapy; Z86.14 Personal history of Methicillin resistant Staphylococcus aureus infection; Z95.0 Presence of cardiac pacemaker; Z87.01 Personal history of pneumonia (recurrent); Z98.890 Other specified postprocedural states; Z99.89 Dependence on other enabling machines and devices
CPT/HCPCS: 36415; 94640 ×2; 93005; 83880; 80053; 82550; 83735; 84484; 85025; 85610; 85730; 87040; 87502; 71046; 99285; 96374; J2930

== ENCOUNTER 2019-05-09 10:01 | Emergency (ER) | payer MEDICARE, OTHER ==
[2019-05-09] MEDS ORDERED: NITROGLYCERIN SL TABS 0.4 MG TAB SUBLINGUAL STA ×3 (10:23)
[2019-05-09] MEDS ORDERED: ASPIRIN 81 MG PO STA (10:23)
--- NOTE | 2019-05-09 10:26 | ED ---
General Adult HPI - General Chief complaint: Chest Pain Stated complaint: chest pain Time Seen by Provider: 05/09/19 10:06 Source: patient, RN notes reviewed Mode of arrival: ambulatory Limitations: no limitations - History of Present Illness Initial comments: Patient is a pleasant 83-year-old male presenting to the emergency Department with complaints of chest discomfort. Onset of symptoms was yesterday. Symptoms improved and then returned again this morning. Discomfort was somewhat severe this morning however is improved and currently 4/10. Discomfort is sharp under the left breast without radiation. Patient states it does hurt a little bit to take a deep breath however no dyspnea. No nausea or diaphoresis. No history of similar symptoms previously. No leg pain or leg swelling. Patient does have history of pacemaker. - Related Data Home Medications Medication Instructions Recorded Confirmed Budesonide-Formot 160-4.5 Mcg 1 puff INHALATION RT-BID 11/04/14 05/09/19 [Symbicort 160-4.5 Mcg Inhaler] Spironolactone [Aldactone] 25 mg PO QAM 10/12/15 05/09/19 metFORMIN HCL [Glucophage] 500 mg PO BID-W/MEALS 10/12/15 05/09/19 Apixaban [Eliquis] 5 mg PO BID 11/23/16 05/09/19 busPIRone HCL [Buspar] 7.5 mg PO BID 01/22/17 05/09/19 Metoprolol Succinate [Toprol XL] 200 mg PO QAM 08/22/17 05/09/19 Sertraline [Zoloft] 100 mg PO DAILY 08/22/17 05/09/19 Furosemide [Lasix] 40 mg PO DAILY PRN 02/04/18 05/09/19 Gabapentin [Neurontin] 300 mg PO Q8H 02/04/18 05/09/19 Sacubitril/Valsartan [Entresto 49 1 tab PO QAM 03/01/18 05/09/19 mg-51 mg Tablet] Metoprolol Succinate [Toprol XL] 100 mg PO QAM 05/09/19 05/09/19 Previous Rx's Medication Instructions Recorded Albuterol Inhaler [Ventolin Hfa 2 puff INHALATION Q6HR PRN #1 12/27/18 Inhaler] inhaler Allergies Allergy/AdvReac Type Severity Reaction Status Date / Time No Known Allergies Allergy Verified 12/27/18 08:23 Review of Systems ROS Statement: Those systems with pertinent positive or pertinent negative responses have been documented in the HPI. ROS Other: All systems not noted in ROS Statement are negative. Constitutional: Denies: fever Eyes: Denies: eye pain ENT: Denies: ear pain Respiratory: Denies: cough Cardiovascular: Reports: chest pain Endocrine: Denies: fatigue Gastrointestinal: Denies: abdominal pain Genitourinary: Denies: dysuria Musculoskeletal: Denies: back pain Skin: Denies: rash Neurological: Denies: weakness Past Medical History Past Medical History: Atrial Fibrillation, Atrial Flutter, Asthma, Heart Failure, COPD, Diabetes Mellitus, Hypertension, Osteoarthritis (OA), Pneumonia, Sleep Apnea/CPAP/BIPAP, Supraventricular Tachycardia (SVT) Additional Past Medical History / Comment(s): bilateral hands/feet, bilateral carpal tunnel syndrome, chronic low back pain with bilateral sciatica, bilateral tinnitis. History of Any Multi-Drug Resistant Organisms: MRSA Date of last positivie culture/infection: 10/19/15 MDRO Source:: LEFT LEG Past Surgical History: AICD, Cardiac Ablation, Heart Catheterization, Pacemaker Additional Past Surgical History / Comment(s): colonoscopy, teeth extractions, pain procedures, Past Anesthesia/Blood Transfusion Reactions: No Reported Reaction Type of Cardiac Device: Permanent Pacemaker, AICD Device Placement Date:: 2015 Past Psychological History: Anxiety Smoking Status: Current every day smoker Past Alcohol Use History: Rare Past Drug Use History: Marijuana - Past Family History Father History Unknown: Yes Mother Family Medical History: Diabetes Mellitus Additional Family Medical History / Comment(s): Mother is "borderline" diabetic. She is alive and in her mid 70s. General Exam Limitations: no limitations General appearance: alert, in no apparent distress Head exam: Present: normocephalic Eye exam: Present: normal appearance, PERRL ENT exam: Present: normal oropharynx Neck exam: Present: normal inspection Respiratory exam: Present: normal lung sounds bilaterally. Absent: chest wall tenderness Cardiovascular Exam: Present: regular rate, normal rhythm Expanded Peripheral pulses: 2+: Radial (R), Radial (L), Posterior Tibialis (R), Posterior Tibialis (L), Dorsalis Pedis (R), Dorsalis Pedis (L) GI/Abdominal exam: Present: soft. Absent: tenderness Extremities exam: Present: normal inspection. Absent: pedal edema, calf tenderness Neurological exam: Present: alert Psychiatric exam: Present: normal affect, normal mood Skin exam: Present: normal color Course Vital Signs 05/09/19 05/09/19 05/09/19 10:03 10:30 11:41 Temperature 97.9 F Pulse Rate 65 61 56 L Respiratory 18 16 18 Rate Blood Pressure 172/109 135/81 124/75 O2 Sat by Pulse 100 98 98 Oximetry 05/09/19 12:00 Temperature Pulse Rate 53 L Respiratory 18 Rate Blood Pressure 124/75 O2 Sat by Pulse 97 Oximetry EKG Findings - EKG Comments: EKG Findings:: Paced rhythm with a rate of 61. LA 216. QRS 132. QT 42. QTC 455. Left axis. Left bundle branch block. No acute ST change. Medical Decision Making - Medical Decision Making Patient reevaluated and resting comfortably in bed. Case was discussed with Dr. Montoya who did come evaluate patient. Plan was to admit patient however patient has refused. Patient also refuses repeat troponin testing. Patient also refuses computed tomography scan. Patient states she feels fine and feels maybe is just something muscular. Patient does demonstrate medical decision making. Patient is made aware of limitations with testing and made aware that there could be a problem still with the aorta or blood clot or heart disease not diagnosed at this time. Despite this patient refuses admission and refuses further testing and will leave AGAINST MEDICAL ADVICE. - Lab Data Result diagrams: 05/09/19 10:29 05/09/19 10:29 Lab Results 05/09/19 05/09/19 05/09/19 Range/Units 10:29 10:29 10:29 WBC 7.3 (3.8-10.6) k/uL RBC 5.45 (4.30-5.90) m/uL Hgb 15.8 (13.0-17.5) gm/dL Hct 48.8 (39.0-53.0) % MCV 89.4 (80.0-100.0) fL MCH 29.0 (25.0-35.0) pg MCHC 32.5 (31.0-37.0) g/dL RDW 12.8 (11.5-15.5) % Plt Count 247 (150-450) k/uL Neutrophils % 56 % Lymphocytes % 34 % Monocytes % 4 % Eosinophils % 4 % Basophils % 1 % Neutrophils # 4.0 (1.3-7.7) k/uL Lymphocytes # 2.5 (1.0-4.8) k/uL Monocytes # 0.3 (0-1.0) k/uL Eosinophils # 0.3 (0-0.7) k/uL Basophils # 0.1 (0-0.2) k/uL PT 10.1 (9.0-12.0) sec INR 1.0 (<1.2) APTT 25.3 (22.0-30.0) sec D-Dimer 0.80 H (<0.60) mg/L FEU Sodium 140 (137-145) mmol/L Potassium 4.1 (3.5-5.1) mmol/L Chloride 105 (98-107) mmol/L Carbon Dioxide 27 (22-30) mmol/L Anion Gap 8 mmol/L BUN 11 (9-20) mg/dL Creatinine 0.73 (0.66-1.25) mg/dL Est GFR (CKD-EPI)AfAm >90 (>60 ml/min/1.73 sqM) Est GFR (CKD-EPI)NonAf >90 (>60 ml/min/1.73 sqM) Glucose 122 H (74-99) mg/dL Calcium 9.1 (8.4-10.2) mg/dL Magnesium 2.0 (1.6-2.3) mg/dL Total Bilirubin 0.6 (0.2-1.3) mg/dL AST 21 (17-59) U/L ALT 17 (4-49) U/L Alkaline Phosphatase 85 (38-126) U/L Troponin I (0.000-0.034) ng/mL Total Protein 7.6 (6.3-8.2) g/dL Albumin 4.1 (3.5-5.0) g/dL 05/09/19 Range/Units 10:29 WBC (3.8-10.6) k/uL RBC (4.30-5.90) m/uL Hgb (13.0-17.5) gm/dL Hct (39.0-53.0) % MCV (80.0-100.0) fL MCH (25.0-35.0) pg MCHC (31.0-37.0) g/dL RDW (11.5-15.5) % Plt Count (150-450) k/uL Neutrophils % % Lymphocytes % % Monocytes % % Eosinophils % % Basophils % % Neutrophils # (1.3-7.7) k/uL Lymphocytes # (1.0-4.8) k/uL Monocytes # (0-1.0) k/uL Eosinophils # (0-0.7) k/uL Basophils # (0-0.2) k/uL PT (9.0-12.0) sec INR (<1.2) APTT (22.0-30.0) sec D-Dimer (<0.60) mg/L FEU Sodium (137-145) mmol/L Potassium (3.5-5.1) mmol/L Chloride (98-107) mmol/L Carbon Dioxide (22-30) mmol/L Anion Gap mmol/L BUN (9-20) mg/dL Creatinine (0.66-1.25) mg/dL Est GFR (CKD-EPI)AfAm (>60 ml/min/1.73 sqM) Est GFR (CKD-EPI)NonAf (>60 ml/min/1.73 sqM) Glucose (74-99) mg/dL Calcium (8.4-10.2) mg/dL Magnesium (1.6-2.3) mg/dL Total Bilirubin (0.2-1.3) mg/dL AST (17-59) U/L ALT (4-49) U/L Alkaline Phosphatase (38-126) U/L Troponin I <0.012 (0.000-0.034) ng/mL Total Protein (6.3-8.2) g/dL Albumin (3.5-5.0) g/dL - Radiology Data Radiology results: image reviewed (Chest x-ray shows no acute process) Disposition Clinical Impression: Chest pain Disposition: Left Against Medical Advice Instructions (If sedation given, give patient instructions): Chest Pain (ED) Additional Instructions: Please follow-up with primary care physician and supervisor cooler service in the beginning of the week. Return for chest pain, difficulty breathing, worsening or change in symptoms, or any other concerns. You're leaving AGAINST MEDICAL ADVICE. Is patient prescribed a controlled substance at d/c from ED?: No Referrals: Marya Crooks MD [Primary Care Provider] - 1-2 days Time of Disposition: 12:12
[2019-05-09 10:56] LABS: Basophils # (A) 0.1 k/uL (0-0.2); Basophils % (A) 1 %; Eosinophils # (A) 0.3 k/uL (0-0.7); Eosinophils % (A) 4 %; HCT 48.8 % (39.0-53.0); HGB 15.8 gm/dL (13.0-17.5); Lymphocytes # (A) 2.5 k/uL (1.0-4.8); Lymphocytes % (A) 34 %; MCHC 32.5 g/dL (31.0-37.0); MCV 89.4 fL (80.0-100.0); Mean Platelet Volume 8.4; Monocytes # (A) 0.3 k/uL (0-1.0); Monocytes % (A) 4 %; Neutrophils % (A) 56 %; Platelet Count 247 k/uL (150-450); RBC 5.45 m/uL (4.30-5.90); RDW 12.8 % (11.5-15.5); WBC 7.3 k/uL (3.8-10.6)
[2019-05-09 11:08] LABS: ALT 17 U/L (4-49); AST 21 U/L (17-59); African American GFR (CKD) >90 (>60 ml/min/1.73 sqM); Albumin 4.1 g/dL (3.5-5.0); Alkaline Phosphatase 85 U/L (38-126); Anion Gap 8 mmol/L; Blood Urea Nitrogen 11 mg/dL (9-20); Calcium 9.1 mg/dL (8.4-10.2); Carbon Dioxide 27 mmol/L (22-30); Chloride 105 mmol/L (98-107); Glucose 122 mg/dL (74-99); Non-African American GFR(CKD) >90 (>60 ml/min/1.73 sqM); Potassium 4.1 mmol/L (3.5-5.1); Sodium 140 mmol/L (137-145); Total Bilirubin 0.6 mg/dL (0.2-1.3); Total Protein 7.6 g/dL (6.3-8.2)
--- NOTE | 2019-05-09 11:15 | XR ---
EXAMINATION TYPE: XR chest 2V DATE OF EXAM: 05/09/2019 COMPARISON: Prior chest 12/27/2018 HISTORY: Chest pain TECHNIQUE: Frontal and lateral views of the chest are obtained. FINDINGS: There is no focal air space opacity, pleural effusion, or pneumothorax seen. The cardiac silhouette size is within normal limits. The osseous structures are intact. There is a generator in the left pectoral region, leads are present in the right atrium and ventricle. There are overlying c ardiac leads. Patient is rotated. IMPRESSION: No acute cardiopulmonary process.
[2019-05-09 11:22] LABS: Partial Thromboplastin Time 25.3 sec (22.0-30.0); Prothrombin Time 10.1 sec (9.0-12.0)
[2019-05-09 11:42] VITALS: BP 124/75; RESP 18
[2019-05-09 11:48] LABS: D-Dimer 0.8 mg/L FEU (<0.60)
[2019-05-09 12:04] VITALS: PULSE 53
[2019-05-09 12:30] VITALS: TEMP 97.8
--- NOTE | 2019-05-09 14:41 | P.CONS ---
History of Present Illness - Reason for Consult Possible admission - History of Present Illness Patient is a 53-year-old pleasant obese -[place] gentleman came to the hospital with complaints of chest pain in the left lower breast area nonradiating sharp in nature moderate severity presently 2/10 in severity nonexertional nonpleuritic not associated with food no associated diaphoresis lightheadedness or shortness of breath. Patient does have history of diabetes with us in hypertension does smoke about a pack a day which she is trying to quit. Patient denied any significant family history of premature coronary artery disease. EKG showed pacer rhythm basic patient has history of cardiac rh ythm abnormalities because of which patient has a AICD and pacemaker. Patient facet of troponin is negative. ER consulted me for possible hospitalization although patient is declining to stay in the hospital patient follows up with Dr. Cooley as an outpatient had a stress test about a month ago which was negative. This probably okay the patient is discharged from ER after a second set up for troponin. And follow up with the his sanitation officer as an outpatient patient chest pain is probably musculoskeletal in origin which significantly improved at this time Review of Systems REVIEW OF SYSTEMS: CONSTITUTIONAL: No fever, no malaise, no fatigue. HEENT: No recent visual problems or hearing problems. Denied any sore throat. CARDIOVASCULAR: No orthopnea, PND, no palpitations, no syncope. PULMONARY: No shortness of breath, no cough, no hemoptysis. GASTROINTESTINAL: No diarrhea, no nausea, no vomiting, no abdominal pain. NEUROLOGICAL: No headaches, no weakness, no numbness. HEMATOLOGICAL: Denies any bleeding or petechiae. GENITOURINARY: Denies any burning micturition, frequency, or urgency. MUSCULOSKELETAL/RHEUMATOLOGICAL: Denies any joint pain, swelling, or any muscle pain. ENDOCRINE: Denies any polyuria or polydipsia. The rest of the 14-point review of systems is negative. Past Medical History Past Medical History: Atrial Fibrillation, Atrial Flutter, Asthma, Heart Failure, COPD, Diabetes Mellitus, Hypertension, Osteoarthritis (OA), Pneumonia, Sleep Apnea/CPAP/BIPAP, Supraventricular Tachycardia (SVT) Additional Past Medical History / Comment(s): bilateral hands/feet, bilateral carpal tunnel syndrome, chronic low back pain with bilateral sciatica, bilateral tinnitis. History of Any Multi-Drug Resistant Organisms: MRSA Year Discovered:: 10/19/15 MDRO Source:: LEFT LEG Past Surgical History: AICD, Cardiac Ablation, Heart Catheterization, Pacemaker Additional Past Surgical History / Comment(s): colonoscopy, teeth extractions, pain procedures, Past Anesthesia/Blood Transfusion Reactions: No Reported Reaction Type of Cardiac Device: Permanent Pacemaker, AICD Device Placement Date:: 2015 Past Psychological History: Anxiety Smoking Status: Current every day smoker Past Alcohol Use History: Rare Past Drug Use History: Marijuana - Past Family History Father History Unknown: Yes Mother Family Medical History: Diabetes Mellitus Additional Family Medical History / Comment(s): Mother is "borderline" diabetic. She is alive and in her mid 70s. Medications and Allergies Home Medications Medication Instructions Recorded Confirmed Type Budesonide-Formot 160-4.5 Mcg 1 puff INHALATION RT-BID 11/04/14 05/09/19 History [Symbicort 160-4.5 Mcg Inhaler] Spironolactone [Aldactone] 25 mg PO QAM 10/12/15 05/09/19 History metFORMIN HCL [Glucophage] 500 mg PO BID-W/MEALS 10/12/15 05/09/19 History Apixaban [Eliquis] 5 mg PO BID 11/23/16 05/09/19 History busPIRone HCL [Buspar] 7.5 mg PO BID 01/22/17 05/09/19 History Metoprolol Succinate [Toprol XL] 200 mg PO QAM 08/22/17 05/09/19 History Sertraline [Zoloft] 100 mg PO DAILY 08/22/17 05/09/19 History Furosemide [Lasix] 40 mg PO DAILY PRN 02/04/18 05/09/19 History Gabapentin [Neurontin] 300 mg PO Q8H 02/04/18 05/09/19 History Sacubitril/Valsartan [Entresto 49 1 tab PO QAM 03/01/18 05/09/19 History mg-51 mg Tablet] Albuterol Inhaler [Ventolin Hfa 2 puff INHALATION Q6HR PRN #1 12/27/18 05/09/19 Rx Inhaler] inhaler Metoprolol Succinate [Toprol XL] 100 mg PO QAM 05/09/19 05/09/19 History Allergies Allergy/AdvReac Type Severity Reaction Status Date / Time No Known Allergies Allergy Verified 12/27/18 08:23 Physical Exam Vitals: Vital Signs Temp Pulse Resp BP Pulse Ox 05/09/19 12:28 97.8 F 05/09/19 12:00 53 L 18 124/75 97 05/09/19 11:41 56 L 18 124/75 98 05/09/19 10:30 61 16 135/81 98 05/09/19 10:03 97.9 F 65 18 172/109 100 Intake and Output 05/08/19 05/09/19 05/09/19 22:59 06:59 14:59 Other: Weight 172.365 kg PHYSICAL EXAMINATION: GENERAL: The patient is alert and oriented x3, not in any acute distress. Well developed, well nourished. HEENT: Pupils are round and equally reacting to light. EOMI. No scleral icterus. No conjunctival pallor. Normocephalic, atraumatic. No pharyngeal erythema. No thyromegaly. CARDIOVASCULAR: S1 and S2 present. No murmurs, rubs, or gallops. PULMONARY: Chest is clear to auscultation, no wheezing or crackles. ABDOMEN: Soft, nontender, nondistended, normoactive bowel sounds. No palpable organomegaly. MUSCULOSKELETAL: No joint swelling or deformity. EXTREMITIES: No cyanosis, clubbing, or pedal edema. NEUROLOGICAL: Gross neurological examination did not reveal any focal deficits. SKIN: No rashes. Results CBC & Chem 7: 05/09/19 10:29 05/09/19 10:29 Labs: Abnormal Lab Results - Last 24 Hours (Table) 05/09/19 05/09/19 Range/Units 10:29 10:29 D-Dimer 0.80 H (<0.60) mg/L FEU Glucose 122 H (74-99) mg/dL Assessment and Plan Plan: -Chest pain: Probably musculoskeletal reasonable for the patient to stay overnight but the patient is declining to stay and had a stress test about a month ago because of which the patient was asked to follow-up with be his sanitation officer and will be discharged from ER after second set of troponin. -Type 2 diabetes mellitus -Hypertension -sick sinus syndrome are tachybradycardia syndrome patient had history of atrial fibrillation along with SVT and bradycardias patient is on Eliquis which she will continue -Obesity sleep apnea -COPD: Nicotine cessation counseling was provided Patient can resume his home medications for above-mentioned chronic medical problems.
== END 2019-05-09 12:28 | disposition left against medical advice (07) ==
LOC: EC 10:01
DX: R07.89 Other chest pain (principal); I49.5 Sick sinus syndrome; I47.1 Supraventricular tachycardia; I48.91 Unspecified atrial fibrillation; I11.0 Hypertensive heart disease with heart failure; I50.9 Heart failure, unspecified; J44.9 Chronic obstructive pulmonary disease, unspecified; E11.9 Type 2 diabetes mellitus without complications; E66.9 Obesity, unspecified; G47.30 Sleep apnea, unspecified; G89.29 Other chronic pain; F41.9 Anxiety disorder, unspecified; F17.200 Nicotine dependence, unspecified, uncomplicated; Z79.01 Long term (current) use of anticoagulants; Z79.51 Long term (current) use of inhaled steroids; Z79.84 Long term (current) use of oral hypoglycemic drugs; Z79.899 Other long term (current) drug therapy; Z86.14 Personal history of Methicillin resistant Staphylococcus aureus infection; Z95.0 Presence of cardiac pacemaker; Z98.890 Other specified postprocedural states; Z68.42 Body mass index [BMI] 45.0-49.9, adult; Z99.89 Dependence on other enabling machines and devices; Z53.20 Procedure and treatment not carried out because of patient's decision for unspecified reasons
CPT/HCPCS: 36415; 71046; 80053; 83735; 84484; 85025; 85379; 85610; 85730; 93005; 99285

== ENCOUNTER → 2019-09-15 | Outpatient (CLI) | payer MEDICARE ==
[2019-09-15 14:04] LABS: African American GFR (CKD) >90 (>60 ml/min/1.73 sqM); Blood Urea Nitrogen 13 mg/dL (9-20); Non-African American GFR(CKD) >90 (>60 ml/min/1.73 sqM)
--- NOTE | 2019-09-15 15:39 | CT ---
EXAMINATION TYPE: CT angio abdomen pelvis DATE OF EXAM: 09/15/2019 2:53 PM COMPARISON: Prior CT 02/04/2018 HISTORY: Atherosclerosis of aorta. CT DLP: 3060.5 mGycm Automated exposure control for dose reduction was used. TECHNIQUE: Performed without and with IV Contrast, patient injected with 100 mL of Isovue 370. Three-dimensional reconstructions performed on an alternate workstation. . FINDINGS: Abdominal aorta is not aneurysmal. There is mild atheromatous change, vascular calcification in the d istribution of the aortoiliac vasculature. Internal and external iliac arteries, common femoral arter ies, proximal superficial femoral and deep femoral arteries are patent. Inferior mesenteric artery, r enal arteries, superior mesenteric artery and celiac axis are patent. Leads are present within the right atrium and ventricle. Lung bases are clear. Liver shows low attenuation likely due to hepatic steatosis. Liver is enlarged. Gallbladder is contra cted. Spleen is normal. Adrenal glands, kidneys, pancreas are within normal limits. No ascites or ret roperitoneal adenopathy. No evident pneumoperitoneum. Diverticular change noted in the sigmoid colon. Degenerative disc changes, facet arthropathy and visualized spine. Arthropathy present within the hi ps. IMPRESSION: NO EVIDENT ABDOMINAL AORTIC ANEURYSM OR DISSECTION. DIVERTICULOSIS. HEPATIC STEATOSIS, HEPATOMEGALY. DEGENERATIVE DISC DISEASE AND FACET ARTHROPATHY.
--- NOTE | 2019-09-17 10:04 | P.ARTDOP ---
Arterial Doppler LOWER EXTREMITY ARTERIAL DOPPLER: DATE OF SERVICE: 09/15/2019 Reason for study: Leg pain. Doppler waveforms: Multiphasic bilaterally throughout. Pulse volume recording: To waveforms normal. Pressure gradients: None. Ankle-brachial indices: Greater than 1 bilaterally. Toe brachial indices: 0.69 on the right, 0.76 on the left Impression: Normal study.
== END | disposition home or self-care (01) ==
LOC: RADCTMAIN 13:01
PROVIDERS: ATTEND Family Medicine
DX: K76.0 Fatty (change of) liver, not elsewhere classified (principal); M51.36 Other intervertebral disc degeneration, lumbar region; M46.96 Unspecified inflammatory spondylopathy, lumbar region; Z72.0 Tobacco use; R25.2 Cramp and spasm
CPT/HCPCS: 82565; 84520; 93922; 36415; 74174; Q9967

== ENCOUNTER 2019-11-09 18:19 | Emergency (ER) | payer MEDICARE ==
[2019-11-09] MEDS ORDERED: OFLOXACIN 0.3% OPHTH DROPS 5 ML BOTTLE RIGHT EAR STA (19:04)
[2019-11-09] MEDS ORDERED: AMOXIC-POT CLAV 875-125MG 1 EACH TAB PO STA (19:04)
--- NOTE | 2019-11-09 19:07 | ED ---
ENT HPI - General Chief complaint: ENT Stated complaint: ear pain Time Seen by Provider: 11/09/19 18:51 Source: patient Mode of arrival: ambulatory Limitations: no limitations - History of Present Illness Initial comments: 54-year-old male presenting today for chief complaint of right ear pain. Patient states the past day or 2 he has had right ear pain. Patient denies any swelling of the external AR or redness. Patient denies any fevers or chills. Patient denies any weakness or additional symptoms patient denies complete hearing loss headaches or neck stiffness. No chest pain shortness of breath or neck pain Patient denies history of diabetes upon arrival patient appears well nontoxic no acute distress - Related Data Home Medications Medication Instructions Recorded Confirmed Budesonide-Formot 160-4.5 Mcg 1 puff INHALATION RT-BID 11/04/14 05/09/19 [Symbicort 160-4.5 Mcg Inhaler] Spironolactone [Aldactone] 25 mg PO QAM 10/12/15 05/09/19 metFORMIN HCL [Glucophage] 500 mg PO BID-W/MEALS 10/12/15 05/09/19 Apixaban [Eliquis] 5 mg PO BID 11/23/16 05/09/19 busPIRone HCL [Buspar] 7.5 mg PO BID 01/22/17 05/09/19 Metoprolol Succinate [Toprol XL] 200 mg PO QAM 08/22/17 05/09/19 Sertraline [Zoloft] 100 mg PO DAILY 08/22/17 05/09/19 Furosemide [Lasix] 40 mg PO DAILY PRN 02/04/18 05/09/19 Gabapentin [Neurontin] 300 mg PO Q8H 02/04/18 05/09/19 Sacubitril/Valsartan [Entresto 49 1 tab PO QAM 03/01/18 05/09/19 mg-51 mg Tablet] Metoprolol Succinate [Toprol XL] 100 mg PO QAM 05/09/19 05/09/19 Previous Rx's Medication Instructions Recorded Albuterol Inhaler (Mhu) [Ventolin 2 puff INHALATION Q6HR PRN #1 12/27/18 Hfa Inhaler (Mhu)] inhaler Amoxic-Pot Clav 875-125Mg 1 tab PO Q12HR 7 Days #14 tab 11/09/19 [Augmentin 875-125] Ofloxacin 0.3% Otic Soln [Floxin 5 drops BOTH EARS BID 7 Days #5 ml 11/09/19 0.3% Otic Soln] Allergies Allergy/AdvReac Type Severity Reaction Status Date / Time No Known Allergies Allergy Verified 11/09/19 18:23 Review of Systems ROS Statement: Those systems with pertinent positive or pertinent negative responses have been documented in the HPI. ROS Other: All systems not noted in ROS Statement are negative. Past Medical History Past Medical History: Atrial Fibrillation, Atrial Flutter, Asthma, Heart Failure, COPD, Diabetes Mellitus, Hypertension, Osteoarthritis (OA), Pneumonia, Sleep Apnea/CPAP/BIPAP, Supraventricular Tachycardia (SVT) Additional Past Medical History / Comment(s): bilateral hands/feet, bilateral carpal tunnel syndrome, chronic low back pain with bilateral sciatica, bilateral tinnitis. History of Any Multi-Drug Resistant Organisms: MRSA Date of last positivie culture/infection: 10/19/15 MDRO Source:: LEFT LEG Past Surgical History: AICD, Cardiac Ablation, Heart Catheterization, Pacemaker Additional Past Surgical History / Comment(s): colonoscopy, teeth extractions, pain procedures, Past Anesthesia/Blood Transfusion Reactions: No Reported Reaction Type of Cardiac Device: Permanent Pacemaker, AICD Device Placement Date:: 2015 Past Psychological History: Anxiety Smoking Status: Current every day smoker Past Alcohol Use History: Rare Past Drug Use History: Marijuana - Past Family History Father History Unknown: Yes Mother Family Medical History: Diabetes Mellitus Additional Family Medical History / Comment(s): Mother is "borderline" diabetic. She is alive and in her mid 70s. General Exam - General Exam Comments Initial Comments: General: The patient is awake and alert, in no distress, and does not appear acutely ill. Eye: +3 mm pupils are equal, round and reactive to light, extra-ocular movements are intact. No nystagmus. There is normal conjunctiva bilaterally. No signs of icterus. Ears, nose, mouth and throat: There are moist mucous membranes and no oral lesions. Cannot completely visualize the right tympanic membrane there is some noted swelling of the distal external auditory canal was visualized of the membrane appears erythematous. Possible drainage, the initial extraocular canals patent no swelling. No pedal patient the mastoid. No significant. Plan of the auricle Neck: The neck is supple, there is no tenderness or JVD. Musculoskeletal: Normal ROM, no tenderness. Strength 5/5. Sensation intact. Pulses equal bilaterally 2+. Neurological: A&O x 3. CN II-XII intact grossly, There are no obvious motor or sensory deficits. Coordination appears grossly intact. Speech is normal. Skin: Skin is warm and dry and no rashes or lesions are noted. Psychiatric: Cooperative, appropriate mood & affect, normal judgment. Limitations: no limitations Course Vital Signs 11/09/19 18:21 Temperature 98.3 F Pulse Rate 65 Respiratory 20 Rate Blood Pressure 168/89 O2 Sat by Pulse 99 Oximetry Medical Decision Making - Medical Decision Making 54yo male presenting for right ear pain. Mixed picture on clinical examination for an otitis externa vs media. Will treat both. No clinical findings suspicious of malignant otitis externa or mastoiditis at this time symptoms of those 2 disease, locations were discussed the patient verbalized understanding. Patient does not appear toxic and is agreeable to outpatient treatment with return pressure worsening symptoms patient was discharged appearing well. Discussed case wtih Dr. Holloway who is agreeable to care plan. Disposition Clinical Impression: Otitis media of right ear, Right ear pain Disposition: HOME SELF-CARE Condition: Good Instructions (If sedation given, give patient instructions): Otitis Externa (ED), Ear Infection (ED) Additional Instructions: Please use medication as discussed. Please follow-up with family doctor in the next 2 days.. Please return to emergency room if the symptoms increase or worsen or for any other concerns. Prescriptions: Amoxic-Pot Clav 875-125Mg [Augmentin 875-125] 1 tab PO Q12HR 7 Days #14 tab Ofloxacin 0.3% Otic Soln [Floxin 0.3% Otic Soln] 5 drops BOTH EARS BID 7 Days #5 ml Is patient prescribed a controlled substance at d/c from ED?: No Referrals: Marya Crooks MD [Primary Care Provider] - 1-2 days Time of Disposition: 19:07
[2019-11-09 19:42] VITALS: BP 165/82; PULSE 61; RESP 16; TEMP 98.2
== END 2019-11-09 19:42 | disposition home or self-care (01) ==
LOC: EC 18:19
DX: H66.91 Otitis media, unspecified, right ear (principal); I48.91 Unspecified atrial fibrillation; E11.9 Type 2 diabetes mellitus without complications; F41.9 Anxiety disorder, unspecified; J44.9 Chronic obstructive pulmonary disease, unspecified; I50.9 Heart failure, unspecified; G47.33 Obstructive sleep apnea (adult) (pediatric); I11.0 Hypertensive heart disease with heart failure; Z79.01 Long term (current) use of anticoagulants; Z79.84 Long term (current) use of oral hypoglycemic drugs; Z79.899 Other long term (current) drug therapy; Z99.89 Dependence on other enabling machines and devices; Z95.5 Presence of coronary angioplasty implant and graft; Z95.810 Presence of automatic (implantable) cardiac defibrillator; Z86.14 Personal history of Methicillin resistant Staphylococcus aureus infection; F17.200 Nicotine dependence, unspecified, uncomplicated
CPT/HCPCS: 99282

== ENCOUNTER → 2019-11-21 | Outpatient (CLI) | payer MEDICARE ==
--- NOTE | 2019-11-21 10:43 | CT ---
EXAMINATION TYPE: CT lumbar spine wo con DATE OF EXAM: 11/21/2019 7:51 AM COMPARISON: CT lumbar spine 07/04/2018 HISTORY: Radiculopathy TECHNIQUE: Unenhanced CT of the lumbar spine was performed. Bone and soft tissue window settings are submitted as well as coronal and sagittal reconstructions. Vertebral body heights are within normal limits. Degenerative endplate spurring worse at L5-S1. There is diffuse facet arthropathy. There is calcification of the ligamentum flavum at every level of the lumbar spine. L1-L2: Normal disc space height. No disc herniation protrusion or central stenosis. Facet arthropath y and calcification of the ligamentum flavum, with indentation of the posterolateral thecal sac. No e vidence for foraminal encroachment. L2-L3: Normal disc space height. No disc herniation protrusion or central stenosis. Facet arthropat hy and calcification of the ligamentum flavum, with indentation of the right posterolateral thecal sa c and mass effect on the right lateral recess. [id number] bilateral foraminal encroachment. L3-L4: Normal disc space height. No disc herniation protrusion or central stenosis. Facet arthropat hy and calcification of the ligamentum flavum, with indentation of the right posterolateral thecal sa c. No evidence for foraminal encroachment. L4-L5: Normal disc space height. No disc herniation protrusion or central stenosis. Facet arthropat hy and calcification of the ligamentum flavum. Moderate bilateral foraminal encroachment. L5-S1: Mild disc space narrowing. Mild central disc protrusion indents the ventral aspect of the thec al sac. No central stenosis. Facet arthropathy and calcification of the ligamentum flavum, with mass effect on the left lateral recess. Severe right and moderate left foraminal encroachment. IMPRESSION: Facet arthropathy and calcification of the ligamentum flavum diffusely of the lumbar spine, with mult ilevel neural foramina narrowing, worst at L5-S1. No canal stenosis.
== END | disposition home or self-care (01) ==
LOC: RADCTMAIN 07:34
PROVIDERS: ATTEND Psychiatry & Neurology Neurology
DX: M48.061 Spinal stenosis, lumbar region without neurogenic claudication (principal); M48.07 Spinal stenosis, lumbosacral region; M46.96 Unspecified inflammatory spondylopathy, lumbar region; M54.10 Radiculopathy, site unspecified
CPT/HCPCS: 72131

== ENCOUNTER 2020-08-22 21:54 | Emergency (ER) | payer MEDICARE ==
[2020-08-22] MEDS ORDERED: LABETALOL 5 MG/ML VIAL MDV IVP STA (21:57)
[2020-08-22] MEDS ORDERED: HYDROmorphone 1 MG/ML 1 ML SYRINGE IVP STA (21:57)
[2020-08-22] MEDS ORDERED: SODIUM CHLORIDE 0.9% 1,000 ML IV STA (21:57)
[2020-08-22] MEDS ORDERED: LORazepam 2 MG/ML INJ IV STA (21:57)
[2020-08-22] MEDS ORDERED: CLEVIDIPINE BUTYRATE 25 MG in EMPTY BAG 1 BAG IV SCH (22:00)
--- NOTE | 2020-08-22 22:06 | ED ---
Chest Pain HPI - General Chief Complaint: Chest Pain Stated Complaint: Abdominal pain Time Seen by Provider: 08/22/20 21:57 Source: patient, RN notes reviewed, old records reviewed Mode of arrival: EMS Limitations: no limitations - History of Present Illness Initial Comments: This is a 54-year-old male DF for evaluation presents today for severe chest p ain epigastric pain. Severe anterior epigastric pain rating on his abdomen. Patient cause EMS, sweating unable to control his breathing and his pain. Nausea no vomiting. Patient states symptoms are of sudden onset. Does have history of high blood pressure A. fib asthma heart failure diabetes multiple medical comorbidities. MD Complaint: chest pain, other (Severe sudden onset of chest pain) -: hour(s) Onset: during rest Pain Location: substernal, epigastric Pain Radiation: abdomen Severity: severe Severity scale (1-10): 10 Quality: sharp, ripping Consistency: constant Improves With: nothing Worsens With: nothing Anginal Symptoms: nausea, diaphoresis, dyspnea, sense of impending doom Other Symptoms: palpitations Treatments Prior to Arrival: none - Related Data Home Medications Medication Instructions Recorded Confirmed Apixaban [Eliquis] 5 mg PO BID 11/23/16 08/22/20 Sertraline [Zoloft] 100 mg PO DAILY 08/22/17 08/22/20 Furosemide [Lasix] 40 mg PO DAILY PRN 02/04/18 08/22/20 Sacubitril/Valsartan [Entresto 49 1 tab PO BID 03/01/18 08/22/20 mg-51 mg Tablet] Metoprolol Succinate [Toprol XL] 100 mg PO DAILY 05/09/19 08/22/20 Amoxic-Pot Clav 875-125Mg 1 tab PO BID 08/22/20 08/22/20 [Augmentin 875-125] HYDROcodone/APAP 7.5-325MG [[place] 1 tab PO TID PRN 08/22/20 08/22/20 7.5-325] Rosuvastatin Calcium 10 mg PO DAILY 08/22/20 08/22/20 Spironolactone [Aldactone] 25 mg PO DAILY PRN 08/22/20 08/22/20 metFORMIN HCL [Glucophage] 1,000 mg PO W/BRKFST 08/22/20 08/22/20 metFORMIN HCL [Glucophage] 500 mg PO W/SUPPER 08/22/20 08/22/20 Allergies Allergy/AdvReac Type Severity Reaction Status Date / Time No Known Allergies Allergy Verified 08/22/20 22:13 Review of Systems ROS Statement: Those systems with pertinent positive or pertinent negative responses have been documented in the HPI. ROS Other: All systems not noted in ROS Statement are negative. EKG Findings - EKG Comments: EKG Findings:: EKG is normal sinus rhythm rate of 72 [place] 160 QRS 136 QTc 503 Past Medical History Past Medical History: Atrial Fibrillation, Atrial Flutter, Asthma, Heart Failure, COPD, Diabetes Mellitus, Hypertension, Osteoarthritis (OA), Pneumonia, Sleep Apnea/CPAP/BIPAP, Supraventricular Tachycardia (SVT) Additional Past Medical History / Comment(s): bilateral hands/feet, bilateral carpal tunnel syndrome, chronic low back pain with bilateral sciatica, bilateral tinnitis. History of Any Multi-Drug Resistant Organisms: MRSA Date of last positivie culture/infection: 10/19/15 MDRO Source:: LEFT LEG Past Surgical History: AICD, Cardiac Ablation, Heart Catheterization, Pacemaker Additional Past Surgical History / Comment(s): colonoscopy, teeth extractions, pain procedures, Past Anesthesia/Blood Transfusion Reactions: No Reported Reaction Type of Cardiac Device: Permanent Pacemaker, AICD Device Placement Date:: 2015 Past Psychological History: Anxiety Smoking Status: Current every day smoker Past Alcohol Use History: Rare Past Drug Use History: Marijuana - Past Family History Father History Unknown: Yes Mother Family Medical History: Diabetes Mellitus Additional Family Medical History / Comment(s): Mother is "borderline" diabetic. She is alive and in her mid 70s. General Exam - General Exam Comments Initial Comments: Diaphoretic Limitations: no limitations General appearance: alert, anxious, in distress, obese Head exam: Present: atraumatic, normocephalic, normal inspection Eye exam: Present: normal appearance, PERRL, EOMI. Absent: scleral icterus, conjunctival injection, periorbital swelling ENT exam: Present: normal exam, mucous membranes moist Neck exam: Present: normal inspection. Absent: tenderness, meningismus, lymphadenopathy Respiratory exam: Present: normal lung sounds bilaterally. Absent: respiratory distress, wheezes, rales, rhonchi, stridor Cardiovascular Exam: Present: regular rate, normal rhythm, normal heart sounds. Absent: systolic murmur, diastolic murmur, rubs, gallop, clicks GI/Abdominal exam: Present: soft, normal bowel sounds. Absent: distended, tenderness, guarding, rebound, rigid Extremities exam: Present: normal inspection, full ROM, normal capillary refill. Absent: tenderness, pedal edema, joint swelling, calf tenderness Back exam: Present: normal inspection Neurological exam: Present: alert, oriented X3, CN II-XII intact Psychiatric exam: Present: normal affect, normal mood Skin exam: Present: warm, dry, intact, normal color. Absent: rash Course Vital Signs 08/22/20 08/22/20 08/22/20 22:01 22:20 22:38 Temperature 98.1 F Pulse Rate 76 85 Respiratory 18 18 Rate Blood Pressure 180/102 142/77 136/79 O2 Sat by Pulse 96 97 Oximetry 08/22/20 23:06 Temperature Pulse Rate 85 Respiratory 22 Rate Blood Pressure 130/79 O2 Sat by Pulse 98 Oximetry - Reevaluation(s) Reevaluation #1: 08/22/20 22:32 Medical record is reviewed Reevaluation #2: 08/22/20 22:[address] secondary to severity of distress Vital signs with chief complaint of chest pain Reevaluation #3: 08/22/20 23:53 Blood pressure improved and resolved, symptoms resolved. Patient prefers discharge does not want to stay in the hospital Chest Pain MDM - MDM 54 male DF for evaluation patient is here for chest pain and hypertensive emergency. Symptoms resolved here in the ER patient feels good for discharge home Critical Care Time Critical Care Time: Yes Total Critical Care Time: 31 Disposition Clinical Impression: Chest pain, Hypertensive emergency Disposition: ADMITTED IP TO THIS HOSP Condition: Good Instructions (If sedation given, give patient instructions): Chest Pain (ED) Is patient prescribed a controlled substance at d/c from ED?: No Referrals: Marya Crooks MD [Primary Care Provider] - 1-2 days
[2020-08-22 22:07] VITALS: TEMP 98.1
[2020-08-22 22:16] LABS: Basophils # (A) 0.1 k/uL (0-0.2); Basophils % (A) 1 %; Eosinophils # (A) 0.2 k/uL (0-0.7); Eosinophils % (A) 2 %; HCT 48.8 % (39.0-53.0); HGB 16.2 gm/dL (13.0-17.5); Lymphocytes # (A) 2.2 k/uL (1.0-4.8); Lymphocytes % (A) 25 %; MCH 29.5 pg (25.0-35.0); MCHC 33.2 g/dL (31.0-37.0); MCV 89.1 fL (80.0-100.0); Mean Platelet Volume 8.3; Monocytes # (A) 0.3 k/uL (0-1.0); Monocytes % (A) 4 %; Neutrophils # (A) 5.7 k/uL (1.3-7.7); Neutrophils % (A) 67 %; Platelet Count 251 k/uL (150-450); RBC 5.47 m/uL (4.30-5.90); RDW 13.3 % (11.5-15.5); WBC 8.5 k/uL (3.8-10.6)
[2020-08-22 22:18] LABS: Glucose,Whole Blood 161 mg/dL (75-99)
[2020-08-22 22:25] LABS: ALT 24 U/L (4-49); AST 31 U/L (17-59); African American GFR (CKD) >90 (>60 ml/min/1.73 sqM); Albumin 4.6 g/dL (3.5-5.0); Alkaline Phosphatase 93 U/L (38-126); Anion Gap 9 mmol/L; Blood Urea Nitrogen 12 mg/dL (9-20); Calcium 9.7 mg/dL (8.4-10.2); Carbon Dioxide 28 mmol/L (22-30); Chloride 106 mmol/L (98-107); Creatine Kinase 151 U/L (55-170); Glucose 170 mg/dL (74-99); Magnesium 1.7 mg/dL (1.6-2.3); Non-African American GFR(CKD) >90 (>60 ml/min/1.73 sqM); Phosphorus 4.8 mg/dL (2.5-4.5); Sodium 143 mmol/L (137-145); Total Bilirubin 0.4 mg/dL (0.2-1.3); Total Protein 8.1 g/dL (6.3-8.2)
[2020-08-22 22:37] LABS: Partial Thromboplastin Time 22.3 sec (22.0-30.0); Prothrombin Time 10.7 sec (9.0-12.0)
[2020-08-22 22:39] VITALS: PULSE 85
--- NOTE | 2020-08-22 22:48 | CT ---
EXAMINATION TYPE: CT abdomen pelvis w con DATE OF EXAM: 08/22/2020 COMPARISON: 02/04/2018 HISTORY: Chest pain, epigastric pain, and diaphoresis. CT DLP: 1035.2 mGycm Automated exposure control for dose reduction was used. CONTRAST: Performed with IV Contrast, patient injected with mL of Isovue 370. There is some patchy atelectasis at the lung bases. There is no pleural effusion. Heart is borderline enlarged. Liver spleen stomach pancreas gallbladder appear intact. Bile ducts are not dilated. There is no adrenal mass. Kidneys show satisfactory contrast opacification. There is no hydronephrosi s. Ureters are not dilated. There is no retroperitoneal adenopathy. Bladder is distended smoothly. Th ere is no pelvic mass. There is no inguinal hernia. There is no free fluid in the pelvis. Appendix is not seen. There is no sign of thickened appendix. There is no mesenteric edema. There is no ascites or free air. There is no bowel obstruction. There a re sigmoid diverticula. There is no sign of diverticulitis. The lumbar vertebra have normal alignment. Disc spaces are fairly normal. There is no compression fra cture. Bony pelvis is intact. IMPRESSION: There is mild sigmoid diverticulosis. No sign of acute abdomen and pelvis. There is clearing of the d iverticulitis in the mid sigmoid colon compared to old exam. There is some interstitial infiltrate and atelectasis at the lung bases which is new compared to old exam.
--- NOTE | 2020-08-22 23:00 | CT ---
EXAMINATION TYPE: CT angio chest DATE OF EXAM: 08/22/2020 COMPARISON: 08/22/2017 HISTORY: Chest pain, epigastric pain, and diaphoresis. CT DLP: 2938.8 mGycm Automated exposure control for dose reduction was used. CONTRAST: Performed with IV Contrast, patient injected with 100 mL of Isovue 370. There are 3-D post processed images. There is some patchy atelectasis in both lungs. Heart is slightly enlarged. There is no pleural effus ion. There is no pericardial effusion. Thoracic aorta is intact. There is no aneurysm or dissection. Ascending aorta measures 3.7 cm. I see no evidence of filling defect in the pulmonary arteries. There are no hilar masses. There is no mediastinal adenopathy. The bony thorax is intact. Sternum is intact. IMPRESSION: There is no evidence of pulmonary embolism. There is some mild atelectasis at the lung bases that is increased compared to old exam. No suspiciou s pulmonary mass. Cardiomegaly unchanged.
[2020-08-22 23:07] VITALS: BP 130/79; RESP 22
== END 2020-08-23 | disposition home or self-care (01) ==
LOC: EC 21:54
DX: I16.1 Hypertensive emergency (principal); E11.9 Type 2 diabetes mellitus without complications; I11.0 Hypertensive heart disease with heart failure; J44.9 Chronic obstructive pulmonary disease, unspecified; I50.9 Heart failure, unspecified; I48.91 Unspecified atrial fibrillation; F17.200 Nicotine dependence, unspecified, uncomplicated; Z79.84 Long term (current) use of oral hypoglycemic drugs; Z79.01 Long term (current) use of anticoagulants; Z79.899 Other long term (current) drug therapy
CPT/HCPCS: 96374 ×2; 96375 ×2; 99291 ×2; 96361 ×2; 93005; 83880; 80053; 82550; 83605; 83735; 84100; 84484; 85025; 85610; 85730; 71275; 74177; J2060; J1170; Q9967; 96360

== ENCOUNTER 2020-08-23 10:52 | Emergency (ER) | payer MEDICARE ==
[2020-08-23 11:28] VITALS: TEMP 98.6
[2020-08-23] MEDS ORDERED: MORPHINE SULFATE 4 MG/ML SYRINGE IV STA (11:52)
[2020-08-23] MEDS ORDERED: diphenhydrAMINE 50 MG/ML 1 ML VIAL IVP STA (11:52)
[2020-08-23] MEDS ORDERED: SODIUM CHLORIDE 0.9% 1,000 ML IV STA (11:52)
[2020-08-23] MEDS ORDERED: ONDANSETRON 4 MG/2 ML VIAL IVP STA (11:52)
--- NOTE | 2020-08-23 11:58 | ED ---
Abdominal Pain HPI - General Chief Complaint: Abdominal Pain Stated Complaint: abd pain/nausea/vomiting Time Seen by Provider: 08/23/20 11:45 Source: patient, RN notes reviewed Mode of arrival: ambulatory Limitations: no limitations - History of Present Illness Initial Comments: Patient is a 54-year-old male that presents to emergency department complaining of upper abdominal pain in the epigastric to right upper quadrant areas. He notes that he was recently seen yesterday for the same complaint and was admitted but symptoms resolved and chose to go home. He notes that he follow-up with his primary care today and she told to come right back to emergency room. He noted that he has not eaten anything since yesterday really. He notes that everything started with a sallow. He notes that he thinks small his medications on a causes upset stomach and pains. Patient did report that he did receive a computed tomography scan and a full workup yesterday. Patient didn't appear to be in mild distress and pain while sitting up in bed during the exam interview. She denied any known aggravating or alleviating factors at this time. She denied any chest pain shortness of breath headache diarrhea constipation fever fatigue chills. - Related Data Home Medications Medication Instructions Recorded Confirmed Apixaban [Eliquis] 5 mg PO BID 11/23/16 08/23/20 Sertraline [Zoloft] 100 mg PO DAILY 08/22/17 08/23/20 Furosemide [Lasix] 40 mg PO DAILY PRN 02/04/18 08/23/20 Sacubitril/Valsartan [Entresto 49 1 tab PO BID 03/01/18 08/23/20 mg-51 mg Tablet] Metoprolol Succinate [Toprol XL] 100 mg PO DAILY 05/09/19 08/23/20 Amoxic-Pot Clav 875-125Mg 1 tab PO BID 08/22/20 08/23/20 [Augmentin 875-125] HYDROcodone/APAP 7.5-325MG [[place] 1 tab PO TID PRN 08/22/20 08/23/20 7.5-325] Rosuvastatin Calcium 10 mg PO DAILY 08/22/20 08/23/20 Spironolactone [Aldactone] 25 mg PO DAILY PRN 08/22/20 08/23/20 metFORMIN HCL [Glucophage] 1,000 mg PO AC-BRKFST 08/22/20 08/23/20 metFORMIN HCL [Glucophage] 500 mg PO AC-SUPPER 08/22/20 08/23/20 Previous Rx's Medication Instructions Recorded Pantoprazole Sodium [Protonix] 20 mg PO DAILY 30 Days #30 08/23/20 tablet. Allergies Allergy/AdvReac Type Severity Reaction Status Date / Time amoxicillin AdvReac Abdominal Verified 08/23/20 11:28 Pain Review of Systems ROS Statement: Those systems with pertinent positive or pertinent negative responses have been documented in the HPI. ROS Other: All systems not noted in ROS Statement are negative. Past Medical History Past Medical History: Atrial Fibrillation, Atrial Flutter, Asthma, Heart Failure, COPD, Diabetes Mellitus, Hypertension, Osteoarthritis (OA), Pneumonia, Sleep Apnea/CPAP/BIPAP, Supraventricular Tachycardia (SVT) Additional Past Medical History / Comment(s): bilateral hands/feet, bilateral carpal tunnel syndrome, chronic low back pain with bilateral sciatica, bilateral tinnitis. History of Any Multi-Drug Resistant Organisms: MRSA Date of last positivie culture/infection: 10/19/15 MDRO Source:: LEFT LEG Past Surgical History: AICD, Cardiac Ablation, Heart Catheterization, Pacemaker Additional Past Surgical History / Comment(s): colonoscopy, teeth extractions, pain procedures, Past Anesthesia/Blood Transfusion Reactions: No Reported Reaction Type of Cardiac Device: Permanent Pacemaker, AICD Device Placement Date:: 2015 Past Psychological History: Anxiety Smoking Status: Current every day smoker Past Alcohol Use History: Rare Past Drug Use History: Marijuana - Past Family History Father History Unknown: Yes Mother Family Medical History: Diabetes Mellitus Additional Family Medical History / Comment(s): Mother is "borderline" diabetic. She is alive and in her mid 70s. General Exam Limitations: no limitations General appearance: alert, in no apparent distress, in distress, obese Head exam: Present: atraumatic, normocephalic, normal inspection Eye exam: Present: normal appearance, PERRL, EOMI. Absent: scleral icterus, c onjunctival injection, periorbital swelling Neck exam: Present: normal inspection Respiratory exam: Present: normal lung sounds bilaterally. Absent: respiratory distress, wheezes, rales, rhonchi, stridor Cardiovascular Exam: Present: regular rate, normal rhythm, normal heart sounds. Absent: systolic murmur, diastolic murmur, rubs, gallop, clicks GI/Abdominal exam: Present: soft, tenderness (Right upper quadrant and epigastric region.), normal bowel sounds. Absent: distended, guarding, rebound, rigid Extremities exam: Present: normal inspection, full ROM, normal capillary refill. Absent: tenderness, pedal edema, joint swelling, calf tenderness Neurological exam: Present: alert, oriented X3, CN II-XII intact Psychiatric exam: Present: normal affect, normal mood Skin exam: Present: warm, dry, intact, normal color. Absent: rash Course Vital Signs 08/23/20 08/23/20 11:24 13:26 Temperature 98.6 F Pulse Rate 80 81 Respiratory 18 20 Rate Blood Pressure 168/116 149/72 O2 Sat by Pulse 94 L 94 L Oximetry - Reevaluation(s) Reevaluation #1: 08/23/20 14:07 Patient states he is feeling better and that the pain has subsided. Blood pressure has come down to acceptable limits. Medical Decision Making - Medical Decision Making 54-year-old male complaining of upper abdominal pain here for revisit from 08/22/2020. CT scans completed yesterday evening showed clearing of mild diverticulitis in the sigmoid colon in no cardiopulmonary issues. Labs, KUB, 4 mg of morphine, 4 mg of Zofran, 50 mg of Benadryl, 1 L normal saline ordered. Labs unremarkable. Case discussed with Dr. Norman, patient discharge home with follow-up to GI l ater today or tomorrow if possible. Patient will be discharged in stable condition. - Lab Data Result diagrams: 08/23/20 12:02 08/23/20 12:02 Lab Results 08/23/20 08/23/20 08/23/20 Range/Units 12:02 12:02 12:02 WBC 9.9 (3.8-10.6) k/uL RBC 5.79 (4.30-5.90) m/uL Hgb 16.5 (13.0-17.5) gm/dL Hct 51.7 (39.0-53.0) % MCV 89.3 (80.0-100.0) fL MCH 28.6 (25.0-35.0) pg MCHC 32.0 (31.0-37.0) g/dL RDW 13.5 (11.5-15.5) % Plt Count 271 (150-450) k/uL MPV 8.5 Neutrophils % 88 % Lymphocytes % 8 % Monocytes % 2 % Eosinophils % 2 % Basophils % 0 % Neutrophils # 8.7 H (1.3-7.7) k/uL Lymphocytes # 0.8 L (1.0-4.8) k/uL Monocytes # 0.2 (0-1.0) k/uL Eosinophils # 0.2 (0-0.7) k/uL Basophils # 0.0 (0-0.2) k/uL Sodium 142 (137-145) mmol/L Potassium 4.2 (3.5-5.1) mmol/L Chloride 104 (98-107) mmol/L Carbon Dioxide 29 (22-30) mmol/L Anion Gap 9 mmol/L BUN 12 (9-20) mg/dL Creatinine 0.75 (0.66-1.25) mg/dL Est GFR (CKD-EPI)AfAm >90 (>60 ml/min/1.73 sqM) Est GFR (CKD-EPI)NonAf >90 (>60 ml/min/1.73 sqM) Glucose 195 H (74-99) mg/dL Plasma Lactic Acid [place] 1.6 (0.7-2.0) mmol/L Calcium 9.6 (8.4-10.2) mg/dL Total Bilirubin 0.6 (0.2-1.3) mg/dL AST 37 (17-59) U/L ALT 26 (4-49) U/L Alkaline Phosphatase 91 (38-126) U/L Total Protein 8.3 H (6.3-8.2) g/dL Albumin 4.7 (3.5-5.0) g/dL Amylase 55 (30-110) U/L Lipase 25 (23-300) U/L Urine Color Urine Appearance (Clear) Urine pH (5.0-8.0) Ur Specific [place] (1.001-1.035) Urine Protein (Negative) Urine Glucose (UA) (Negative) Urine Ketones (Negative) Urine Blood (Negative) Urine Nitrite (Negative) Urine Bilirubin (Negative) Urine Urobilinogen (<2.0) mg/dL Ur Leukocyte Esterase (Negative) Urine RBC (0-5) /hpf Urine WBC (0-5) /hpf Ur Squamous Epith Cells (0-4) /hpf Urine Mucus (None) /hpf 08/23/20 Range/Units 12:05 WBC (3.8-10.6) k/uL RBC (4.30-5.90) m/uL Hgb (13.0-17.5) gm/dL Hct (39.0-53.0) % MCV (80.0-100.0) fL MCH (25.0-35.0) pg MCHC (31.0-37.0) g/dL RDW (11.5-15.5) % Plt Count (150-450) k/uL MPV Neutrophils % % Lymphocytes % % Monocytes % % Eosinophils % % Basophils % % Neutrophils # (1.3-7.7) k/uL Lymphocytes # (1.0-4.8) k/uL Monocytes # (0-1.0) k/uL Eosinophils # (0-0.7) k/uL Basophils # (0-0.2) k/uL Sodium (137-145) mmol/L Potassium (3.5-5.1) mmol/L Chloride (98-107) mmol/L Carbon Dioxide (22-30) mmol/L Anion Gap mmol/L BUN (9-20) mg/dL Creatinine (0.66-1.25) mg/dL Est GFR (CKD-EPI)AfAm (>60 ml/min/1.73 sqM) Est GFR (CKD-EPI)NonAf (>60 ml/min/1.73 sqM) Glucose (74-99) mg/dL Plasma Lactic Acid [place] (0.7-2.0) mmol/L Calcium (8.4-10.2) mg/dL Total Bilirubin (0.2-1.3) mg/dL AST (17-59) U/L ALT (4-49) U/L Alkaline Phosphatase (38-126) U/L Total Protein (6.3-8.2) g/dL Albumin (3.5-5.0) g/dL Amylase (30-110) U/L Lipase (23-300) U/L Urine Color Yellow Urine Appearance Clear (Clear) Urine pH 5.5 (5.0-8.0) Ur Specific [place] 1.039 H (1.001-1.035) Urine Protein 1+ H (Negative) Urine Glucose (UA) Negative (Negative) Urine Ketones Trace H (Negative) Urine Blood Trace H (Negative) Urine Nitrite Negative (Negative) Urine Bilirubin Negative (Negative) Urine Urobilinogen <2.0 (<2.0) mg/dL Ur Leukocyte Esterase Negative (Negative) Urine RBC 1 (0-5) /hpf Urine WBC 2 (0-5) /hpf Ur Squamous Epith Cells 2 (0-4) /hpf Urine Mucus Many H (None) /hpf - Radiology Data Radiology results: report reviewed, image reviewed KUB: Overall nonspecific strongly favor nonobstructive bowel gas pattern remains present. Disposition Clinical Impression: Abdominal pain Disposition: HOME SELF-CARE Condition: Stable Instructions (If sedation given, give patient instructions): Abdominal Pain (ED) Additional Instructions: Please return to the Emergency Department if symptoms worsen or any other concerns. Follow-up with GI specialist later today or tomorrow. Take Protonix as prescribed. Avoid any strenuous activity or lifting. Is patient prescribed a controlled substance at d/c from ED?: No Referrals: Marya Crooks MD [Primary Care Provider] - 1-2 days Daniel Mosley MD [STAFF PHYSICIAN] - 1-2 days Time of Disposition: 14:08
[2020-08-23 12:11] LABS: Basophils % (A) 0 %; Eosinophils # (A) 0.2 k/uL (0-0.7); Eosinophils % (A) 2 %; HCT 51.7 % (39.0-53.0); HGB 16.5 gm/dL (13.0-17.5); Lymphocytes # (A) 0.8 k/uL (1.0-4.8); Lymphocytes % (A) 8 %; MCH 28.6 pg (25.0-35.0); MCV 89.3 fL (80.0-100.0); Mean Platelet Volume 8.5; Monocytes # (A) 0.2 k/uL (0-1.0); Monocytes % (A) 2 %; Neutrophils # (A) 8.7 k/uL (1.3-7.7); Neutrophils % (A) 88 %; Platelet Count 271 k/uL (150-450); RBC 5.79 m/uL (4.30-5.90); RDW 13.5 % (11.5-15.5); WBC 9.9 k/uL (3.8-10.6)
[2020-08-23 12:40] LABS: ALT 26 U/L (4-49); AST 37 U/L (17-59); African American GFR (CKD) >90 (>60 ml/min/1.73 sqM); Albumin 4.7 g/dL (3.5-5.0); Alkaline Phosphatase 91 U/L (38-126); Amylase 55 U/L (30-110); Anion Gap 9 mmol/L; Blood Urea Nitrogen 12 mg/dL (9-20); Calcium 9.6 mg/dL (8.4-10.2); Carbon Dioxide 29 mmol/L (22-30); Chloride 104 mmol/L (98-107); Glucose 195 mg/dL (74-99); Lipase 25 U/L (23-300); Non-African American GFR(CKD) >90 (>60 ml/min/1.73 sqM); Potassium 4.2 mmol/L (3.5-5.1); Sodium 142 mmol/L (137-145); Total Bilirubin 0.6 mg/dL (0.2-1.3); Total Protein 8.3 g/dL (6.3-8.2)
--- NOTE | 2020-08-23 12:58 | XR ---
EXAMINATION TYPE: XR KUB DATE OF EXAM: 08/23/2020 12:37 PM CLINICAL HISTORY: Pain with nausea and vomiting. TECHNIQUE: Two Upright KUB images of the abdomen are obtained. COMPARISON: CT a/p yesterday. FINDINGS: Some paucity of bowel gas. Scattered gas seen in nondistended small and large bowel loops. Air-fluid level in nondistended stomach. No free air. New patchy left greater than right bibasilar op acities. Multilevel spurring in the spine. IMPRESSION: Overall nonspecific strongly favor nonobstructive bowel gas pattern remains present.
[2020-08-23 13:26] VITALS: BP 149/72; PULSE 81; RESP 20
[2020-08-23 13:46] LABS: Appearance,Urine Clear (Clear); Bilirubin,Urine Negative (Negative); Blood,Urine Trace (Negative); Color,Urine Yellow; Glucose,Urine (UA) Negative (Negative); Ketones,Urine Trace (Negative); Leukocyte Esterase,Urine Negative (Negative); Mucus,Urine Many /hpf; Nitrite,Urine Negative (Negative); PH, Urine 5.5 (5.0-8.0); Protein,Urine 1+ (Negative); RBC,Urine 1 /hpf (0-5); Specific Gravity,Urine 1.039 (1.001-1.035); Squamous Epithelial Cell,Urine 2 /hpf (0-4); Urobilinogen,Urine <2.0 mg/dL (<2.0); WBC,Urine 2 /hpf (0-5)
== END 2020-08-23 14:19 | disposition home or self-care (01) ==
LOC: EC 10:52
DX: R10.11 Right upper quadrant pain (principal); R11.2 Nausea with vomiting, unspecified; I11.0 Hypertensive heart disease with heart failure; I50.9 Heart failure, unspecified; E11.9 Type 2 diabetes mellitus without complications; J44.9 Chronic obstructive pulmonary disease, unspecified; M19.90 Unspecified osteoarthritis, unspecified site; I48.91 Unspecified atrial fibrillation; I48.92 Unspecified atrial flutter; G47.30 Sleep apnea, unspecified; Z79.01 Long term (current) use of anticoagulants; Z79.84 Long term (current) use of oral hypoglycemic drugs
CPT/HCPCS: 36415; 80053; 82150; 83605; 83690; 85025; 81001; 74018; 99284; 96374; 96375 ×2; 96361 ×2; J2270; J1200; J2405

== ENCOUNTER 2020-08-30 00:15 | Emergency (ER) | payer MEDICARE ==
[2020-08-30 00:19] VITALS: TEMP 97.6
[2020-08-30] MEDS ORDERED: NITROGLYCERIN OINT 1 INCH/GM PACKET TOPICAL STA (00:25)
[2020-08-30] MEDS ORDERED: ALBUTEROL NEBULIZED 2.5 MG/3 ML INHALATION STA ×2 (00:35→02:47)
--- NOTE | 2020-08-30 00:39 | ED ---
SOB HPI - General Chief Complaint: Shortness of Breath Stated Complaint: TYLER Time Seen by Provider: 08/30/20 00:24 Source: patient Mode of arrival: wheelchair Limitations: no limitations - History of Present Illness Initial Comments: This patient is a 54-year-old man who presents to be evaluate for cough and shortness of breath. He states that it feels like his COPD is flaring up. The patient had been trying to use his albuterol but could not find the inhaler. He was planning to follow up with his primary physician on Sunday but the breathing worsened today so he presents here. No fever or chills. No leg pain or swelling. No chest pain. No sputum. He does have a nonproductive cough. MD Complaint: shortness of breath, cough -: days(s) Consistency: constant Improves With: nothing Worsens With: nothing Known History Of: COPD Associated Symptoms: cough Treatments Prior to Arrival: none - Related Data Home Medications Medication Instructions Recorded Confirmed Apixaban [Eliquis] 5 mg PO BID 11/23/16 08/23/20 Sertraline [Zoloft] 100 mg PO DAILY 08/22/17 08/23/20 Furosemide [Lasix] 40 mg PO DAILY PRN 02/04/18 08/23/20 Sacubitril/Valsartan [Entresto 49 1 tab PO BID 03/01/18 08/23/20 mg-51 mg Tablet] Metoprolol Succinate [Toprol XL] 100 mg PO DAILY 05/09/19 08/23/20 Amoxic-Pot Clav 875-125Mg 1 tab PO BID 08/22/20 08/23/20 [Augmentin 875-125] HYDROcodone/APAP 7.5-325MG [[place] 1 tab PO TID PRN 08/22/20 08/23/20 7.5-325] Rosuvastatin Calcium 10 mg PO DAILY 08/22/20 08/23/20 Spironolactone [Aldactone] 25 mg PO DAILY PRN 08/22/20 08/23/20 metFORMIN HCL [Glucophage] 1,000 mg PO AC-BRKFST 08/22/20 08/23/20 metFORMIN HCL [Glucophage] 500 mg PO AC-SUPPER 08/22/20 08/23/20 Previous Rx's Medication Instructions Recorded Pantoprazole Sodium [Protonix] 20 mg PO DAILY 30 Days #30 08/23/20 tablet. Azithromycin [Zithromax Z-pack (6 250 mg PO DIRECTED #6 tab 08/30/20 tabs)] predniSONE 60 mg PO DAILY #30 tab 08/30/20 Allergies Allergy/AdvReac Type Severity Reaction Status Date / Time amoxicillin AdvReac Abdominal Verified 08/30/20 00:32 Pain Review of Systems ROS Statement: Those systems with pertinent positive or pertinent negative responses have been documented in the HPI. ROS Other: All systems not noted in ROS Statement are negative. Constitutional: Denies: fever, chills Respiratory: Reports: cough, dyspnea, wheezes. Denies: hemoptysis Cardiovascular: Denies: chest pain, palpitations, orthopnea, edema, syncope Gastrointestinal: Denies: abdominal pain, vomiting, diarrhea Genitourinary: Denies: dysuria, hematuria Musculoskeletal: Denies: back pain Skin: Denies: rash Neurological: Denies: headache, weakness Past Medical History Past Medical History: Atrial Fibrillation, Atrial Flutter, Asthma, Heart Failure, COPD, Diabetes Mellitus, Hypertension, Osteoarthritis (OA), Pneumonia, Sleep Apnea/CPAP/BIPAP, Supraventricular Tachycardia (SVT) Additional Past Medical History / Comment(s): bilateral hands/feet, bilateral carpal tunnel syndrome, chronic low back pain with bilateral sciatica, bilateral tinnitis. History of Any Multi-Drug Resistant Organisms: MRSA Date of last positivie culture/infection: 10/19/15 MDRO Source:: LEFT LEG Past Surgical History: AICD, Cardiac Ablation, Heart Catheterization, Pacemaker Additional Past Surgical History / Comment(s): colonoscopy, teeth extractions, pain procedures, Past Anesthesia/Blood Transfusion Reactions: No Reported Reaction Type of Cardiac Device: Permanent Pacemaker, AICD Device Placement Date:: 2015 Past Psychological History: Anxiety Smoking Status: Current every day smoker Past Alcohol Use History: Rare Past Drug Use History: Marijuana - Past Family History Father History Unknown: Yes Mother Family Medical History: Diabetes Mellitus Additional Family Medical History / Comment(s): Mother is "borderline" diabetic. She is alive and in her mid 70s. General Exam Limitations: no limitations General appearance: alert, in distress Head exam: Present: atraumatic, normocephalic Eye exam: Present: normal appearance Respiratory exam: Present: respiratory distress (Mild tachypnea), wheezes. Absent: rales, rhonchi, chest wall tenderness, accessory muscle use, decreased breath sounds Cardiovascular Exam: Present: regular rate, normal rhythm, normal heart sounds. Absent: systolic murmur, diastolic murmur, rubs, gallop GI/Abdominal exam: Present: soft. Absent: distended, tenderness, guarding, rebound, rigid, mass Extremities exam: Present: normal inspection, normal capillary refill. Absent: pedal edema, calf tenderness Back exam: Present: normal inspection. Absent: CVA tenderness (R), CVA tenderness (L) Neurological exam: Present: alert Skin exam: Present: warm, dry, intact, normal color. Absent: rash Course Vital Signs 08/30/20 08/30/20 00:17 02:00 Temperature 97.6 F Pulse Rate 72 62 Respiratory 28 H 18 Rate Blood Pressure 175/85 O2 Sat by Pulse 95 97 Oximetry Medical Decision Making - Lab Data Result diagrams: 08/30/20 01:14 08/30/20 01:14 Lab Results 08/30/20 08/30/20 08/30/20 Range/Units 01:14 01:14 01:14 WBC 8.5 (3.8-10.6) k/uL RBC 5.29 (4.30-5.90) m/uL Hgb 14.9 (13.0-17.5) gm/dL Hct 47.0 (39.0-53.0) % MCV 89.0 (80.0-100.0) fL MCH 28.2 (25.0-35.0) pg MCHC 31.7 (31.0-37.0) g/dL RDW 13.5 (11.5-15.5) % Plt Count 253 (150-450) k/uL MPV 7.9 Neutrophils % 58 % Lymphocytes % 31 % Monocytes % 5 % Eosinophils % 3 % Basophils % 1 % Neutrophils # 4.9 (1.3-7.7) k/uL Lymphocytes # 2.7 (1.0-4.8) k/uL Monocytes # 0.4 (0-1.0) k/uL Eosinophils # 0.3 (0-0.7) k/uL Basophils # 0.1 (0-0.2) k/uL PT 10.4 (9.0-12.0) sec INR 1.0 (<1.2) APTT 24.3 (22.0-30.0) sec Sodium 143 (137-145) mmol/L Potassium 4.0 (3.5-5.1) mmol/L Chloride 107 (98-107) mmol/L Carbon Dioxide 30 (22-30) mmol/L Anion Gap 6 mmol/L BUN 11 (9-20) mg/dL Creatinine 0.78 (0.66-1.25) mg/dL Est GFR (CKD-EPI)AfAm >90 (>60 ml/min/1.73 sqM) Est GFR (CKD-EPI)NonAf >90 (>60 ml/min/1.73 sqM) Glucose 127 H (74-99) mg/dL Calcium 9.1 (8.4-10.2) mg/dL Total Bilirubin 0.3 (0.2-1.3) mg/dL AST 26 (17-59) U/L ALT 21 (4-49) U/L Alkaline Phosphatase 79 (38-126) U/L Troponin I (0.000-0.034) ng/mL NT-Pro-B Natriuret Pep pg/mL Total Protein 6.8 (6.3-8.2) g/dL Albumin 3.8 (3.5-5.0) g/dL Coronavirus (PCR) (Not Detectd) 08/30/20 08/30/20 08/30/20 Range/Units 01:14 01:14 01:14 WBC (3.8-10.6) k/uL RBC (4.30-5.90) m/uL Hgb (13.0-17.5) gm/dL Hct (39.0-53.0) % MCV (80.0-100.0) fL MCH (25.0-35.0) pg MCHC (31.0-37.0) g/dL RDW (11.5-15.5) % Plt Count (150-450) k/uL MPV Neutrophils % % Lymphocytes % % Monocytes % % Eosinophils % % Basophils % % Neutrophils # (1.3-7.7) k/uL Lymphocytes # (1.0-4.8) k/uL Monocytes # (0-1.0) k/uL Eosinophils # (0-0.7) k/uL Basophils # (0-0.2) k/uL PT (9.0-12.0) sec INR (<1.2) APTT (22.0-30.0) sec Sodium (137-145) mmol/L Potassium (3.5-5.1) mmol/L Chloride (98-107) mmol/L Carbon Dioxide (22-30) mmol/L Anion Gap mmol/L BUN (9-20) mg/dL Creatinine (0.66-1.25) mg/dL Est GFR (CKD-EPI)AfAm (>60 ml/min/1.73 sqM) Est GFR (CKD-EPI)NonAf (>60 ml/min/1.73 sqM) Glucose (74-99) mg/dL Calcium (8.4-10.2) mg/dL Total Bilirubin (0.2-1.3) mg/dL AST (17-59) U/L ALT (4-49) U/L Alkaline Phosphatase (38-126) U/L Troponin I <0.012 (0.000-0.034) ng/mL NT-Pro-B Natriuret Pep 205 pg/mL Total Protein (6.3-8.2) g/dL Albumin (3.5-5.0) g/dL Coronavirus (PCR) Not Detected (Not Detectd) Disposition Clinical Impression: Bronchitis Disposition: HOME SELF-CARE Condition: Good Instructions (If sedation given, give patient instructions): Acute Bronchitis (ED) Prescriptions: predniSONE 60 mg PO DAILY #30 tab Azithromycin [Zithromax Z-pack (6 tabs)] 250 mg PO DIRECTED #6 tab Is patient prescribed a controlled substance at d/c from ED?: No Referrals: Marya Crooks MD [Primary Care Provider] - 1-2 days
[2020-08-30] MEDS ORDERED: ALBUTEROL HFA INHALER INHALATION STA (00:53)
--- NOTE | 2020-08-30 01:02 | XR ---
EXAM: XR Chest, 2 Views CLINICAL HISTORY: Difficulty breathing TECHNIQUE: Frontal and lateral views of the chest. COMPARISON: No relevant prior studies available. FINDINGS: Lungs: Subtle diffuse airspace opacities which may represent pulmonary vascular congestion versus an infectious process. Pleural space: Unremarkable. Heart: Unremarkable. Mediastinum: Unremarkable. Bones/joints: Unremarkable. Tubes, lines and devices: Chronic pacemaker is noted. IMPRESSION: Subtle diffuse airspace opacities which may represent pulmonary vascular congestion versus an infectious process.
[2020-08-30 02:01] VITALS: RESP 18
[2020-08-30 02:03] LABS: Basophils # (A) 0.1 k/uL (0-0.2); Basophils % (A) 1 %; Eosinophils # (A) 0.3 k/uL (0-0.7); Eosinophils % (A) 3 %; HGB 14.9 gm/dL (13.0-17.5); Lymphocytes # (A) 2.7 k/uL (1.0-4.8); Lymphocytes % (A) 31 %; MCH 28.2 pg (25.0-35.0); MCHC 31.7 g/dL (31.0-37.0); Mean Platelet Volume 7.9; Monocytes # (A) 0.4 k/uL (0-1.0); Monocytes % (A) 5 %; Neutrophils # (A) 4.9 k/uL (1.3-7.7); Neutrophils % (A) 58 %; Platelet Count 253 k/uL (150-450); RBC 5.29 m/uL (4.30-5.90); RDW 13.5 % (11.5-15.5); WBC 8.5 k/uL (3.8-10.6)
[2020-08-30 02:10] LABS: Partial Thromboplastin Time 24.3 sec (22.0-30.0); Prothrombin Time 10.4 sec (9.0-12.0)
[2020-08-30 02:17] LABS: ALT 21 U/L (4-49); AST 26 U/L (17-59); African American GFR (CKD) >90 (>60 ml/min/1.73 sqM); Albumin 3.8 g/dL (3.5-5.0); Alkaline Phosphatase 79 U/L (38-126); Anion Gap 6 mmol/L; Blood Urea Nitrogen 11 mg/dL (9-20); Calcium 9.1 mg/dL (8.4-10.2); Carbon Dioxide 30 mmol/L (22-30); Chloride 107 mmol/L (98-107); Glucose 127 mg/dL (74-99); Non-African American GFR(CKD) >90 (>60 ml/min/1.73 sqM); Sodium 143 mmol/L (137-145); Total Bilirubin 0.3 mg/dL (0.2-1.3); Total Protein 6.8 g/dL (6.3-8.2)
[2020-08-30] MEDS ORDERED: predniSONE 20 MG TAB PO STA (02:38)
[2020-08-30] MEDS ORDERED: BUDESONIDE 1 MG/2 ML NEBU INHALATION STA (03:18)
[2020-08-30 04:02] VITALS: BP 154/84; PULSE 67
== END 2020-08-30 03:47 | disposition home or self-care (01) ==
LOC: EC 00:15
DX: J40 Bronchitis, not specified as acute or chronic (principal); I11.0 Hypertensive heart disease with heart failure; I50.9 Heart failure, unspecified; J44.9 Chronic obstructive pulmonary disease, unspecified; I48.91 Unspecified atrial fibrillation; I48.92 Unspecified atrial flutter; E11.9 Type 2 diabetes mellitus without complications; M19.90 Unspecified osteoarthritis, unspecified site; G47.30 Sleep apnea, unspecified; F41.9 Anxiety disorder, unspecified; F17.200 Nicotine dependence, unspecified, uncomplicated; F12.90 Cannabis use, unspecified, uncomplicated; Z20.822 Contact with and (suspected) exposure to COVID-19; Z79.84 Long term (current) use of oral hypoglycemic drugs; Z79.01 Long term (current) use of anticoagulants; Z95.0 Presence of cardiac pacemaker
CPT/HCPCS: 36415; 94640 ×2; 93005; 83880; 80053; 84484; 85025; 85610; 85730; 87635; 71046; 99285; J7512

== ENCOUNTER 2020-09-24 07:51 | Day surgery (SDC) | payer MEDICARE ==
[2020-09-22 14:53] VITALS: BMI 51.1
[~2020-09-24 07:51] MED LIST changes: +ACETAMINOPHEN TAB 500 MG TAB PO PRN; +CLINDAMYCIN 900 MG in DEXTROSE 5% IN WATER 50 ML IVPB PRN; +DEXAMETHASONE SOD PHOSPHATE 4 MG/ML 1 ML VIAL IV ONE; +GENTAMICIN IVPB PRN; +HEPARIN SODIUM,PORCINE/PF 5,000 UNIT/0.5 ML SYRINGE SQ PRN; +HYDROmorphone 0.5 MG/0.5 ML SYRINGE IVP PRN; -LACTATED RINGERS 1,000 ML IV SCH; -LIDOCAINE 1% 20 ML VIAL (10MG/ML) FOR IV START INTRADERMA PRN; +ONDANSETRON 4 MG/2 ML VIAL IVP ONE; +SCOPOLAMINE 1.5MG/72HR PATCH TRANSDERM ONE; -SODIUM CHLORIDE 0.9% 1,000 ML IV SCH; +SODIUM CHLORIDE 0.9% IVPB PRN
[2020-09-24 08:35] LABS: Glucose,Whole Blood 158 mg/dL (75-99)
[2020-09-24] MEDS: LACTATED RINGERS 1,000 ML IV SCH ×2 (08:45→09:09)
--- NOTE | 2020-09-24 08:59 | P.GSHP ---
History of Present Illness H&P Date: 09/24/20 Chief Complaint: Pilonidal cyst 54-year-old male was seen in March of this year and again in July. Patient has complaints of recurrent infection at the apex of his gluteal crease. When he was last seen the patient had a draining wound. He was started on antibiotics and says it closed after that. We have not seen any sinus openings along the midline gluteal crease itself. No pain currently. Again no drainage recently. Past Medical History Past Medical History: Atrial Fibrillation, Atrial Flutter, Asthma, Heart Failure, COPD, Diabetes Mellitus, Hypertension, Osteoarthritis (OA), Pneumonia, Sleep Apnea/CPAP/BIPAP, Supraventricular Tachycardia (SVT) Additional Past Medical History / Comment(s): pilonidal cyst, intermittent numbness bilateral hands/feet, bilateral carpal tunnel syndrome, chronic low back pain with bilateral sciatica, bilateral tinnitis,uses cpap History of Any Multi-Drug Resistant Organisms: MRSA Date of last positivie culture/infection: 10/19/15 MDRO Source:: LEFT LEG Past Surgical History: AICD, Cardiac Ablation, Heart Catheterization, Pacemaker Additional Past Surgical History / Comment(s): colonoscopy, teeth extractions, pain procedures,Dual Pacemaker/Defibrillator Past Anesthesia/Blood Transfusion Reactions: No Reported Reaction Type of Cardiac Device: Permanent Pacemaker, AICD Device Placement Date:: 2015 Smoking Status: Current every day smoker - Past Family History Father History Unknown: Yes Mother Family Medical History: Diabetes Mellitus Additional Family Medical History / Comment(s): Mother is "borderline" diabetic. She is alive and in her mid 70s. Medications and Allergies Home Medications Medication Instructions Recorded Confirmed Type Apixaban [Eliquis] 5 mg PO DAILY 11/23/16 09/24/20 History Sertraline [Zoloft] 100 mg PO QAM 08/22/17 09/24/20 History Furosemide [Lasix] 40 mg PO DAILY PRN 02/04/18 09/24/20 History Sacubitril/Valsartan [Entresto 49 1 tab PO QAM 03/01/18 09/24/20 History mg-51 mg Tablet] Metoprolol Succinate [Toprol XL] 300 mg PO QAM 05/09/19 09/24/20 History HYDROcodone/APAP 7.5-325MG [[place] 1 tab PO TID PRN 08/22/20 09/24/20 History 7.5-325] Rosuvastatin Calcium 10 mg PO DAILY 08/22/20 09/24/20 History Spironolactone [Aldactone] 25 mg PO DAILY 08/22/20 09/24/20 History metFORMIN HCL [Glucophage] 500 mg PO BID 08/22/20 09/24/20 History Allergies Allergy/AdvReac Type Severity Reaction Status Date / Time amoxicillin AdvReac Anaphylaxis Verified 09/24/20 08:13 Surgical - Exam Vital Signs Temp Pulse Resp BP Pulse Ox 96.3 F L 67 20 142/76 98 09/24/20 08:23 09/24/20 08:23 09/24/20 08:23 09/24/20 08:23 09/24/20 08:23 Physical exam: General: Well-developed, well-nourished HEENT: Normocephalic, sclerae nonicteric Abdomen: Nontender, nondistended Extremities: No edema Neuro: Alert and oriented Pilonidal region again examined. The patient has induration at the apex of his gluteal crease however there is no sinus openings inferior to that or any induration present. The patient is a very large man and his gluteal crease is longer than average Results - Labs Abnormal Lab Results - Last 24 Hours (Table) 09/24/20 Range/Units 08:33 POC Glucose (mg/dL) 158 H (75-99) mg/dL Assessment and Plan (1) Pilonidal cyst Narrative/Plan: Area currently looks much better than previous. We discussed options. Since we do not see any definite sinus openings along the gluteal crease we will perform a limited resection of the recurrent abscess site. We will follow subcutaneous tissues until all visible inflammatory tissue was excised. This may require drain placement. We may change our approach and decided to leave this open to heal by secondary intention but for now planned primary closure. Risks of bleeding, infection, recurrence, wound formation, numbness, poor healing reviewed. He understands and wishes to proceed. Current Visit: Yes Status: Acute Code(s): L05.91 - PILONIDAL CYST WITHOUT ABSCESS SNOMED Code(s): 46798616
[2020-09-24] MEDS ORDERED: ROCURONIUM 10 MG/ML (5 ML VIAL) IV ONE (09:08)
[2020-09-24] MEDS ORDERED: fentaNYL (PF) 50 MCG/ML 2 ML AMP ONE (09:08)
[2020-09-24] MEDS ORDERED: PROPOFOL 10 MG/ML 20 ML VIAL IV ONE (09:08)
[2020-09-24] MEDS ORDERED: SUCCINYLCHOLINE CHLORIDE VIAL 200 MG/10 ML VIAL IV ONE (09:08)
[2020-09-24] MEDS ORDERED: NEOSTIGMINE 1 MG/ML 10 ML VIAL ONE (09:08)
[2020-09-24] MEDS ORDERED: MIDAZOLAM 2 MG/2 ML VIAL ONE (09:08)
[2020-09-24] MEDS ORDERED: LIDOCAINE 1% INJ 10MG/ML (20 ML MDV) ONE (09:08)
[2020-09-24] MEDS ORDERED: GLYCOPYRROLATE 0.2 MG/ML 2 ML VIAL ONE (09:08)
[2020-09-24] MEDS ORDERED: BUPIVACAINE (PF) 0.25% 30 ML VIAL SQ ONE (10:10)
[2020-09-24] MEDS ORDERED: NALOXONE 0.4 MG/ML 1 ML VIAL IV PRN (10:22)
[2020-09-24] MEDS ORDERED: HYDROcodone/APAP 5-325MG 1 EACH TAB PO PRN (10:22)
--- NOTE | 2020-09-24 10:24 | P.OP ---
Date of Procedure: 09/24/20 Procedure(s) Performed: PREOPERATIVE DIAGNOSIS: Pilonidal cyst POSTOPERATIVE DIAGNOSIS: Same PROCEDURE: Pilonidal cystectomy SURGEON: Avinash COLMENARESL: Minimal ANESTHESIA: General COMPLICATIONS: None OPERATIVE PROCEDURE: Patient was placed prone on the operating table after general anesthesia was achieved. The gluteal crease was prepped and draped in usual sterile fashion after the patient was placed in the prone jackknife position. The patient an area of induration at the apex of his gluteal crease. I could not visualize any sinus openings along the gluteal cleft. An elliptical incision was made encompassing the area of induration where the recurrent abscess had been located. The subcutaneous tissues were divided using electrocautery. I could not see any tracking of the inflammatory process inferiorly or laterally. The specimen was sent to pathology. The area was irrigated. The subcutaneous tissues were reapproximated using interrupted 2-0 Vicryl sutures. The dermal layer was then reapproximated using interrupted 3-0 Vicryl sutures. The skin was then closed using a running 3-0 Monocryl suture. Marcaine solution plain was utilized as local anesthesia. Skin glue was used along the length of the skin closure. A sterile dressing was applied at that time. DISPOSITION: Stable to recovery room
[2020-09-24 10:34] VITALS: TEMP 98
[2020-09-24 10:48] VITALS: RESP 16
[2020-09-24 11:01] LABS: Glucose,Whole Blood 148 mg/dL (75-99)
[2020-09-24 11:18] VITALS: PULSE 80
[2020-09-24 11:32] VITALS: BP 129/78
== END 2020-09-24 11:50 | disposition home or self-care (01) ==
LOC: OR 07:51
PROVIDERS: ATTEND Surgery
DX: L05.91 Pilonidal cyst without abscess (principal); E11.9 Type 2 diabetes mellitus without complications; I11.0 Hypertensive heart disease with heart failure; I50.9 Heart failure, unspecified; I48.91 Unspecified atrial fibrillation; J44.9 Chronic obstructive pulmonary disease, unspecified; M19.90 Unspecified osteoarthritis, unspecified site; F17.200 Nicotine dependence, unspecified, uncomplicated; Z79.84 Long term (current) use of oral hypoglycemic drugs; Z79.01 Long term (current) use of anticoagulants; Z95.0 Presence of cardiac pacemaker; Z83.3 Family history of diabetes mellitus; Z88.0 Allergy status to penicillin
CPT/HCPCS: 11770; 88304; J2250; J0330; J1100; J2710; J2405; J2001; J3010; J1580; J2704; J1644

== ENCOUNTER → 2022-07-19 | Outpatient (CLI) | payer MEDICARE ==
--- NOTE | 2022-07-19 13:03 | CTL ---
EXAMINATION TYPE: CT Low Dose Lung DATE OF EXAM ORDERED: 07/19/2022 HISTORY: Long-term tobacco use. Lung cancer screening CT DLP: [address] CTDI: 5.9 mGy Automated exposure control for dose reduction was used. SCREENING VISIT: Baseline COMPARISON: Prior CTA chest August 22, 2020 TECHNIQUE: Low dose computed tomography scan was performed through the chest at 1 mm thick sections a nd reconstructed images in multiple planes at 1 mm and [address] DIAGNOSTIC QUALITY: Limited, but interpretable Due to large body habitus. FINDINGS: LUNG NODULES: None. LUNGS: COPD: Severity: None Fibrosis: Severity: None Lymph nodes: None Other findings: Persistent enlarged main pulmonary artery suggesting underlying pulmonary artery hype rtension RIGHT PLEURAL SPACE: Effusion: None Calcification: None Thickening: None Pneumothorax: None LEFT PLEURAL SPACE: Effusion: None Calcification: None Thickening: None Pneumothorax: None HEART: Heart Size: Normal Coronary Calcification: None Pericardial Effusion: None OTHER FINDINGS: Upper abdomen: None Bony thorax: None Supraclavicular region: None Other: Dual-lead pacemaker/defibrillator is present. IMPRESSION: Slightly suboptimal study without suspicious focal nodules. CT LUNG RAD AND CT CHEST RECOMMENDATION: Lung-Rad 1 Negative: Continue annual screening with LDCT in 12 months. S Modifier (other clinically significant findings): None
== END | disposition home or self-care (01) ==
LOC: RADCTMAIN 12:17
PROVIDERS: ATTEND Family Medicine
DX: Z12.2 Encounter for screening for malignant neoplasm of respiratory organs (principal); F17.210 Nicotine dependence, cigarettes, uncomplicated
CPT/HCPCS: 71271

== ENCOUNTER 2022-08-31 13:10 | Day surgery (SDC) | payer MEDICARE ==
[~2022-08-31 13:10] MED LIST changes: -ACETAMINOPHEN TAB 500 MG TAB PO PRN; -CLINDAMYCIN 900 MG in DEXTROSE 5% IN WATER 50 ML IVPB PRN; -DEXAMETHASONE SOD PHOSPHATE 4 MG/ML 1 ML VIAL IV ONE; -GENTAMICIN IVPB PRN; -HEPARIN SODIUM,PORCINE/PF 5,000 UNIT/0.5 ML SYRINGE SQ PRN; -HYDROmorphone 0.5 MG/0.5 ML SYRINGE IVP PRN; -MIDAZOLAM 2 MG/2 ML VIAL IV PRN; -ONDANSETRON 4 MG/2 ML VIAL IVP ONE; -SCOPOLAMINE 1.5MG/72HR PATCH TRANSDERM ONE; +SODIUM CHLORIDE 0.9% 1,000 ML IV SCH; -SODIUM CHLORIDE 0.9% IVPB PRN
[2022-08-31 13:50] VITALS: BP 135/77; PULSE 63; RESP 18; TEMP 97.2
[2022-08-31 13:53] LABS: Glucose,Whole Blood 123 mg/dL (70-110)
[2022-08-31] MEDS ORDERED: IOPAMIDOL-370 100ML BTL INJ ONE ×3 (14:02→14:06)
[2022-08-31 14:32] LABS: African American GFR (CKD) >90 (>60 ml/min/1.73 sqM); Anion Gap 7 mmol/L; Blood Urea Nitrogen 12 mg/dL (9-20); Calcium 9.2 mg/dL (8.4-10.2); Carbon Dioxide 28 mmol/L (22-30); Chloride 105 mmol/L (98-107); Glucose 125 mg/dL (74-99); Non-African American GFR(CKD) >90 (>60 ml/min/1.73 sqM); Potassium 4.2 mmol/L (3.5-5.1); Sodium 140 mmol/L (137-145)
--- NOTE | 2022-08-31 20:15 | P.EPPROC ---
- EP Procedure Note Electrophysiology Procedure Note: Diagnosis Severe nonischemic cardio myopathy Left bundle branch block Class II CHF Device approaching YUDI Procedure Cinefluoroscopy of the leads Patient is a dual-chamber ICD Atrial lead screwed in right atrial appendage stable no fractures Single coil ICD in right ventricle, no fractures or breaks Left upper extremity venogram performed Patent left subclavian and axillary venous system in the plan Proceed with upgrade to a biventricular ICD with physiologic pacing for management of heart failure and nonischemic cardio myopathy in the setting of left bundle branch block
== END 2022-08-31 14:23 | disposition home or self-care (01) ==
LOC: CATHEP 13:10
PROVIDERS: ATTEND Internal Medicine Clinical Cardiac Electrophysiology
DX: I42.8 Other cardiomyopathies (principal); I44.7 Left bundle-branch block, unspecified; I50.9 Heart failure, unspecified; E11.9 Type 2 diabetes mellitus without complications; I50.22 Chronic systolic (congestive) heart failure; I48.0 Paroxysmal atrial fibrillation; F17.210 Nicotine dependence, cigarettes, uncomplicated; Z79.01 Long term (current) use of anticoagulants; Z79.899 Other long term (current) drug therapy
CPT/HCPCS: 75820; 76000; 80048; Q9967

== ENCOUNTER → 2022-09-22 | Outpatient (CLI) | payer MEDICARE | LOC: 3 N SLEEP 13:06 | PROVIDERS: ATTEND Internal Medicine Critical Care Medicine | DX: G47.33 Obstructive sleep apnea (adult) (pediatric) (principal); F17.200 Nicotine dependence, unspecified, uncomplicated; Z88.0 Allergy status to penicillin ==

== ENCOUNTER → 2022-09-25 | Day surgery (SDC) | payer MEDICARE ==
[2022-09-22 13:45] VITALS: BMI 50.1
[~2022-09-25] MED LIST changes: +ACETAMINOPHEN IV (For NPO) 1,000 MG in EMPTY BAG 1 BAG IVPB ONE; +ACETAMINOPHEN TAB 325 MG TAB PO PRN; +GLYCOPYRROLATE 0.2 MG/ML 2 ML VIAL ONE; +HYDROcodone/APAP 7.5-325MG 1 EACH TAB ONE; +HYDROmorphone 0.5 MG/0.5 ML SYRINGE IVP PRN; +KETAMINE 10 MG/ML 20 ML VIAL ONE; +LACTATED RINGERS 1,000 ML IV SCH; +LIDOCAINE 1% INJ 10MG/ML (20 ML MDV) ONE; +MIDAZOLAM 2 MG/2 ML VIAL IV PRN; +MIDAZOLAM 2 MG/2 ML VIAL ONE; +PROPOFOL 10 MG/ML 20 ML VIAL IV ONE; +VANCOMYCIN 2,500 MG in SODIUM CHLORIDE 0.9% 250 ML IVPB ONE; +VANCOMYCIN 2,500 MG in SODIUM CHLORIDE 0.9% 500 ML 500 ML IVPB ONE; +ceFAZolin 1 GM in SODIUM CHLORIDE 0.9% IRRIG BTL 250 ML IRRIGATION PRN; +fentaNYL (PF) 50 MCG/ML 2 ML AMP ONE
[2022-09-25 11:37] LABS: Glucose,Whole Blood 140 mg/dL (70-110)
[2022-09-25 11:44] VITALS: TEMP 98.2
[2022-09-25 11:54] LABS: Basophils # (A) 0.1 k/uL (0-0.2); Basophils % (A) 1 %; Eosinophils # (A) 0.3 k/uL (0-0.7); Eosinophils % (A) 3 %; HCT 52.7 % (39.0-53.0); HGB 16.7 gm/dL (13.0-17.5); Lymphocytes # (A) 2.5 k/uL (1.0-4.8); Lymphocytes % (A) 29 %; MCH 28.9 pg (25.0-35.0); MCHC 31.7 g/dL (31.0-37.0); Mean Platelet Volume 8.9; Monocytes # (A) 0.4 k/uL (0-1.0); Monocytes % (A) 4 %; Neutrophils # (A) 5.4 k/uL (1.3-7.7); Neutrophils % (A) 61 %; Platelet Count 252 k/uL (150-450); RBC 5.79 m/uL (4.30-5.90); RDW 13.6 % (11.5-15.5); WBC 8.8 k/uL (3.8-10.6)
--- NOTE | 2022-09-25 12:52 | CA ---
Transthoracic Echo Report Name: Walker Rosen Age: 56 Gender: M : 1965 Exam Date: 09/25/2022 11:45 Exam Location: [facility] Ht (in): 74 Wt (lb): 390 Ordering Physician: Johnny Harp MD ([id number]) Attending/Referring Phys: Calciner Feeder Ericka Deleon [facility] Procedure CPT: Indications: LV function Cardiac Hx: Technical Quality: Technically difficult study Contrast 1: Lumason Total Dose (mL): 5 Contrast 2: Total Dose (mL): MEASUREMENTS (Male / Female) Normal Values 2D ECHO LV Diastolic Diameter PLAX 5.6 cm 4.2 - 5.9 / 3.9 - 5.3 cm LV Systolic Diameter PLAX 4.3 cm IVS Diastolic Thickness 1.1 cm 0.6 - 1.0 / 0.6 - 0.9 cm LVPW Diastolic Thickness 1.1 cm 0.6 - 1.0 / 0.6 - 0.9 cm LV Relative Wall Thickness 0.4 LV Diastolic Volume MOD BP 214.5 cm??? 67 - 155 / 56 - 104 cm??? LV Systolic Volume MOD BP 111.1 cm??? 22 - 58 / 19 - 49 cm??? LV Ejection Fraction MOD BP 48.2 % >= 55 % LV Cardiac Index MOD BP 2513.3 cm???/min???m??? LV Diastolic Volume MOD 4C 224.4 cm??? LV Systolic Volume MOD 4C 111.1 cm??? LV Ejection Fraction MOD 4C 50.5 % LV Cardiac Index MOD 4C 2752.1 cm???/min???m??? LV Diastolic Length 4C 10.3 cm LV Systolic Length 4C 9.0 cm LV Diastolic Volume MOD 2C 198.9 cm??? LV Systolic Volume MOD 2C 111.3 cm??? LV Ejection Fraction MOD 2C 44.1 % LV Cardiac Index MOD 2C 2129.6 cm???/min???m??? LV Diastolic Length 2C 10.0 cm LV Systolic Length 2C 8.9 cm DOPPLER Mitral E Point Velocity 68.8 cm/s Mitral A Point Velocity 82.2 cm/s Mitral E to A Ratio 0.8 MV Deceleration Time 261.2 ms FINDINGS Left Ventricle Mildly increased left ventricular wall thickness. Moderate left ventricular dilatation. Left ventricular ejection fraction is estimated at 45-50%. Mildly reduced left ventricular systolic function. Right Ventricle Right Atrium Left Atrium Mitral Valve Aortic Valve Tricuspid Valve Pulmonic Valve Pericardium Aorta CONCLUSIONS Technically suboptimal study Mild LV systolic dysfunction Enlarged left ventricle Previewed by: Dr. Gurdeep Kwon MD (Electronically Signed) Final Date: 25 September 2022 12:51
[2022-09-25] MEDS: LIDOCAINE 1% INJ 10MG/ML (20 ML MDV) SQ ONE ×2 (14:46→15:03)
--- NOTE | 2022-09-25 15:57 | P.EPPROC ---
- EP Procedure Note Electrophysiology Procedure Note: Diagnosis Device at YUDI, residual 6% battery life Biotronik dual-chamber ICD on rapid battery depletion advisory History of nonischemic cardio myopathy On Dilantin directly medical treatment for congestive heart failure class II, chronic Reduced LV systolic function of 45% Obstructive sleep apnea using CPAP mask QRS width 131 ms History of paroxysmal atrial fibrillation Underlying sick sinus syndrome Procedure Dual-chamber ICD generator change for low residual battery voltage in the se tting of an icd generator advisory for rapid battery depletion Result: Dual chamber ICD generator change, successful Atrial lead: Biotronik, 53 cm in length model #044770 P waves 3.3 mV, pacing impedance 551 ohms and pacing threshold 1.5 V at 0.4 ms RV ICD lead: Biotronik single coil ICD lead, model #115568, 65 cm in length R waves 20 mV pacing impedance 475 ohms, high-voltage impedance 77 ohms, pacing threshold 1 V 0.4 ms Procedure details: Patient was brought to the EP lab in a fasting state. Written informed consent was obtained prior to the procedure. Options, pros and cons, benefits and risks and complications discussed with patient in detail prior to the procedure (shared decision making). Importance of continuing medical treatment emphasized. Alternatives discussed. Patient would like to proceed with dual-chamber ICD implant. Biventricular ICD upgrade was not performed on account of improvement in LV systolic function beyond 35%. The left pectoral area was prepped and draped as a protocol. IV antibiotics administered 1% lidocaine was used for local anesthesia. A 4 cm incision was made parallel to the deltopectoral groove, about 1.5 cm medial to it. The incision was carried down to the level of the pectoralis muscle and the subfascial pocket was made. Hemostasis was assured. Pocket irrigated with antibiotic solution. Antibody pouch placed Leads connected to the dual-chamber ICD generator. Wound closed in 3 layers and dressed per protocol Dual ICD interrogated and programmed. Appropriate pacing parameters, antitachycardia therapies with antitachycardia pacing cardioversion defibrillations programmed. Patient tolerated the procedure well without any acute complications. See scanned device report in EMR for lead details
[2022-09-25 18:55] VITALS: PULSE 64; RESP 16
[2022-09-25 18:56] VITALS: BP 152/74
== END | disposition home or self-care (01) ==
LOC: CATHEP 11:14
PROVIDERS: ATTEND Internal Medicine Clinical Cardiac Electrophysiology
DX: I42.8 Other cardiomyopathies (principal); I48.0 Paroxysmal atrial fibrillation; G47.33 Obstructive sleep apnea (adult) (pediatric); Z99.89 Dependence on other enabling machines and devices; I49.5 Sick sinus syndrome; I48.92 Unspecified atrial flutter; I11.0 Hypertensive heart disease with heart failure; I50.22 Chronic systolic (congestive) heart failure; I47.1 Supraventricular tachycardia; Z95.810 Presence of automatic (implantable) cardiac defibrillator; F12.90 Cannabis use, unspecified, uncomplicated; E11.9 Type 2 diabetes mellitus without complications; F17.210 Nicotine dependence, cigarettes, uncomplicated; Z79.01 Long term (current) use of anticoagulants; Z79.84 Long term (current) use of oral hypoglycemic drugs; Z79.899 Other long term (current) drug therapy; Z88.0 Allergy status to penicillin
CPT/HCPCS: 33263; 85025; C8924; C1721; J2250; J3370; J0690; J2001; J3010; J2704; Q9950; 93308

== ENCOUNTER → 2023-02-22 | Day surgery (SDC) | payer MEDICARE ==
[~2023-02-22] MED LIST changes: -ACETAMINOPHEN IV (For NPO) 1,000 MG in EMPTY BAG 1 BAG IVPB ONE; -ACETAMINOPHEN TAB 325 MG TAB PO PRN; -GLYCOPYRROLATE 0.2 MG/ML 2 ML VIAL ONE; -HYDROcodone/APAP 7.5-325MG 1 EACH TAB ONE; -HYDROmorphone 0.5 MG/0.5 ML SYRINGE IVP PRN; -KETAMINE 10 MG/ML 20 ML VIAL ONE; +LACTATED RINGERS 1,000 ML IV ONE; -LIDOCAINE 1% INJ 10MG/ML (20 ML MDV) ONE; -MIDAZOLAM 2 MG/2 ML VIAL IV PRN; -MIDAZOLAM 2 MG/2 ML VIAL ONE; -SODIUM CHLORIDE 0.9% 1,000 ML IV SCH; -VANCOMYCIN 2,500 MG in SODIUM CHLORIDE 0.9% 250 ML IVPB ONE; -VANCOMYCIN 2,500 MG in SODIUM CHLORIDE 0.9% 500 ML 500 ML IVPB ONE; -ceFAZolin 1 GM in SODIUM CHLORIDE 0.9% IRRIG BTL 250 ML IRRIGATION PRN; -fentaNYL (PF) 50 MCG/ML 2 ML AMP ONE
[2023-02-22 07:33] LABS: Glucose,Whole Blood 99 mg/dL (70-110)
[2023-02-22 07:47] VITALS: TEMP 97.9
--- NOTE | 2023-02-22 07:57 | P.GSHP ---
History of Present Illness H&P Date: 02/22/23 Chief Complaint: Screening Colonoscopy This a 57-year-old male presents today for screening colonoscopy. Patient denies a significant GI complaints. Past Medical History Past Medical History: Atrial Fibrillation, Atrial Flutter, Asthma, Heart Failure, COPD, Diabetes Mellitus, Hyperlipidemia, Hypertension, Osteoarthritis (OA), Sleep Apnea/CPAP/BIPAP, Supraventricular Tachycardia (SVT) Additional Past Medical History / Comment(s): bilateral hands/feet neuropathy, bilateral carpal tunnel syndrome, chronic low back pain with bilateral sciatica, bilateral tinnitis. See Dr Harp H&P. pt uses cpap. 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 She is alive and in her mid 70s. Medications and Allergies Home Medications Medication Instructions Recorded Confirmed Type Apixaban [Eliquis] 5 mg PO DAILY 11/23/16 02/22/23 History Sertraline [Zoloft] 100 mg PO QAM 08/22/17 02/22/23 History Furosemide [Lasix] 40 mg PO DAILY PRN 02/04/18 02/22/23 History Sacubitril/Valsartan [Entresto 49 1 tab PO QAM 03/01/18 02/22/23 History mg-51 mg Tablet] Metoprolol Succinate [Toprol XL] 300 mg PO QAM 05/09/19 02/22/23 History HYDROcodone/APAP 7.5-325MG [[place] 1 tab PO TID PRN 08/22/20 02/22/23 History 7.5-325] Rosuvastatin Calcium 10 mg PO DAILY 08/22/20 02/22/23 History Spironolactone [Aldactone] 25 mg PO DAILY 08/22/20 02/22/23 History Empagliflozin [Jardiance] 10 mg PO DAILY 08/29/22 02/22/23 History Allergies Allergy/AdvReac Type Severity Reaction Status Date / Time amoxicillin AdvReac Anaphylaxis Verified 02/22/23 07:38 Surgical - Exam Vital Signs Temp Pulse Resp BP Pulse Ox 97.9 F 70 17 122/69 94 L 02/22/23 07:12 02/22/23 07:12 02/22/23 07:12 02/22/23 07:12 02/22/23 07:12 - General well developed, well nourished, no distress - Eyes PERRL - ENT normal pinna, normal nares - Neck no masses - Respiratory normal expansion - Cardiovascular Rhythm: regular - Abdomen Abdomen: soft, non tender Assessment and Plan Assessment: We'll perform screening colonoscopy
--- NOTE | 2023-02-22 08:14 | P.OP ---
Date of Procedure: 02/22/23 Preoperative Diagnosis: Screening colonoscopy Postoperative Diagnosis: Diverticulosis Procedure(s) Performed: Colonoscopy Anesthesia: MAC Surgeon: Merrick Castellanos Pathology: none sent Condition: stable Disposition: PACU Description of Procedure: The patient's placed on the endoscopy table in the lateral position. He received IV sedation. Digital rectal exam was performed. This revealed no abnormalities. Flexible colonoscope was then placed patient anus and passed throughout the entire colon. The ileocecal valve was visualized. The cecum, ascending and transverse colon appeared normal. In the descending and sigmoid colon there is mild diverticular changes. Scope was brought back the rectum and this appeared normal. Scope withdrawn for patient.
[2023-02-22 09:00] VITALS: BP 132/86; PULSE 56; RESP 18
== END | disposition home or self-care (01) ==
LOC: ORWHC2ENDO 06:58
PROVIDERS: ATTEND Surgery
DX: Z12.11 Encounter for screening for malignant neoplasm of colon (principal); K57.30 Diverticulosis of large intestine without perforation or abscess without bleeding; I48.91 Unspecified atrial fibrillation; I11.0 Hypertensive heart disease with heart failure; I50.9 Heart failure, unspecified; J44.9 Chronic obstructive pulmonary disease, unspecified; E78.5 Hyperlipidemia, unspecified; E11.9 Type 2 diabetes mellitus without complications; G89.29 Other chronic pain; Z98.890 Other specified postprocedural states; Z95.5 Presence of coronary angioplasty implant and graft; Z95.810 Presence of automatic (implantable) cardiac defibrillator; Z87.891 Personal history of nicotine dependence; Z83.3 Family history of diabetes mellitus; Z79.01 Long term (current) use of anticoagulants; Z79.84 Long term (current) use of oral hypoglycemic drugs; Z88.0 Allergy status to penicillin
CPT/HCPCS: G0121; J2704; 45378

== ENCOUNTER → 2023-02-28 | Outpatient (CLI) | payer MEDICARE ==
[2023-02-28 13:53] LABS: African American GFR (CKD) >90 (>60 ml/min/1.73 sqM); Blood Urea Nitrogen 11 mg/dL (9-20); Non-African American GFR(CKD) >90 (>60 ml/min/1.73 sqM)
--- NOTE | 2023-03-04 17:59 | CT ---
EXAMINATION TYPE: CT angio head neck DATE OF EXAM: 02/28/2023 COMPARISON: None HISTORY: 57-year-old male H93.13, Bilateral tinnitus TECHNIQUE: Contiguous axial scanning of the head and neck performed with IV Contrast, patient injecte d with 65 ml mL of Isovue 370. Coronal and sagittal MIP reconstructions performed. 3-D reconstruction s generated on a dedicated workstation. CT DLP: Combined DLP of 686.5 mGycm Automated exposure control for dose reduction was used. FINDINGS: Neck: Reactive ananth-osteogenesis left maxillary sinus gutierres with near complete opacification. Consider ENT r eferral for long-standing sinusitis. Mastoid air cells well pneumatized. There is some asymmetric soft tissue filling the left piriform sinus, axial image 45. Direct visualiz ation to exclude a mucosal lesion/neoplasm here. Conventional arch vessel branching anatomy. Large patient body habitus results in limited assessment of the vertebral artery origins. The common carotid arteries appear patent. Minimal atherosclerotic changes at the bilateral carotid bifurcations. No significant narrowing at the bilateral internal carotid arteries by NASCET criteria. Head: The bilateral vertebral and basilar artery as well as the remainder of the posterior circulation appe ars patent. The internal carotid arteries are patent. No skull base abnormality is seen. Slightly hypoplastic A1 segment right anterior cerebral artery. Anterior circulation otherwise patent. No aneurysmal change is seen. IMPRESSION: NECK: 1. Recommend ENT referral for the severe long-standing left maxillary sinus disease. Also for some ap parent soft tissue filling the left piriform sinus. Direct visualization to exclude a mucosal lesion/ neoplasm here. 2. Overall limited assessment due to the suboptimal enhancement and large patient body habitus. 3. Only minimal atherosclerotic changes at the bilateral carotid bifurcations. The origin of the vert ebral arteries is not well assessed due to the exam limitations. 4. Otherwise, the vertebral and carotid arteries appear widely patent. Head: 5. No large vessel intracranial arterial occlusion, significant stenosis, or aneurysmal change is see n.
--- NOTE | 2023-03-04 18:04 | CT ---
EXAMINATION TYPE: CT iac wo con DATE OF EXAM: 02/28/2023 COMPARISON: CT brain 12/11/2016 HISTORY: 57 year-old male H93.13, Bilateral tinnitus CT DLP: Combined DLP of 686.5 mGycm Automated exposure control for dose reduction was used. TECHNIQUE: Contiguous high-resolution axial scanning of the temporal bones performed without IV cont rast. Coronal reformatted images obtained. FINDINGS: There is no gross abnormality of visualized intracranial structures by thin cut noncontrast technique . The skull base appears normal. The external auditory canals appear clear. The middle ear cavities and mastoid air cells are clear and well-pneumatized. There is no abnormality of middle ear ossicles. The round and oval windows are normal. There is no abnormality of bony labyrinths. No dehiscence of the superior semicircular canals or the bilateral carotid canals. The vestibular and cochlear aqueducts are well visualized. The facial nerve canal is normal bilaterally. The internal auditory canal and meati are symmetrical bilaterally. There is no evidence of fractures. Mild mucosal thickening ethmoid air cells. Again, near complete opacification left maxillary sinus wi th severe thickening of the maxillary sinus gutierres as mentioned on the separate CTA head and neck repo rt of the same day. Reformatted images confirm above findings. IMPRESSION: 1. Unremarkable temporal bone CT. 2. Severe long standing left maxillary sinusitis. Consider ENT referral.
== END | disposition home or self-care (01) ==
LOC: RADCTMAIN 13:02
PROVIDERS: ATTEND Family Medicine
DX: H93.13 Tinnitus, bilateral (principal); J32.0 Chronic maxillary sinusitis; I65.23 Occlusion and stenosis of bilateral carotid arteries
CPT/HCPCS: 82565; 84520; 70496; 70480; 70498; 36415; Q9967

== ENCOUNTER → 2023-03-09 | Outpatient (CLI) | payer MEDICARE ==
--- NOTE | 2023-03-09 17:30 | US ---
EXAMINATION TYPE: US carotid duplex BILAT DATE OF EXAM: 03/09/2023 COMPARISON: NONE CLINICAL INDICATION: Male, 57 years old with history of [id number] TINNITUS OF BOTH EARS; Hx Smoker; Numbn ess in bilateral lower extremities. TECHNIQUE: Carotid duplex ultrasound examination. Indirect Doppler criteria was utilized. FINDINGS: EXAM MEASUREMENTS: RIGHT: Peak Systolic Velocity (PSV) cm/sec ----- Right CCA: 93 ----- Right ICA: 90 ----- Right ECA: 73 ICA/CCA ratio: 1.1 RIGHT: End Diastole cm/sec ----- Right CCA: 15 ----- Right ICA: 29 ----- Right ECA: 8 LEFT: Peak Systolic Velocity (PSV) cm/sec ----- Left CCA: 96 ----- Left ICA: 55 ----- Left ECA: 90 ICA/CCA ratio: 0.8 LEFT: End Diastole cm/sec ----- Left CCA: 27 ----- Left ICA: 22 ----- Left ECA: 90 VERTEBRALS (direction of flow): Right Vertebral: Antegrade Left Vertebral: Antegrade Rhythm: Arrhythmia DIRECTOR OF INSTRUCTION NOTES: No plaque, intimal thickening, or elevated velocities noted. High bifurcation bila terally. IMPRESSION: Less than 50% stenosis of bilateral carotid bifurcations. Criteria for Assigning % of Stenosis / Diameter reduction (Estimation based on the indirect measurements of the internal carotid artery velocities (ICA PSV). 1. Normal (no stenosis)=ICA PSV < 125 cm/s: ratio < 2.0: ICA EDV<40 cm/s. 2. Less than 50% stenosis=ICA PSV < 125 cm/s: ratio < 2.0: ICA EDV<40 cm/s. 3. 50 to 69% stenosis=ICA PSV of 125 to 230 cm/s: ration 2.0 ? 4.0: ICA EDV 40-100 cm/s. 4. Greater than 70% stenosis to near occlusion= ICA PSV > 230 cm/s: ratio > 4.0: ICA EDV > 100 cm/s. 5. Near occlusion= ICA PSV velocities may be low or undetectable: variable ratio and ICA EDV. 6. Total occlusion=unable to detect flow.
--- NOTE | 2023-03-10 11:09 | US ---
EXAMINATION TYPE: US extremity nonvasc mass RT DATE OF EXAM: 03/09/2023 COMPARISON: NONE CLINICAL INDICATION: Male, 57 years old with history of LUMP IN RIGHT LEG; x few months; patient mariely es any injury or relevant history TECHNIQUE: Grayscale imaging of the calf. FINDINGS: Calcific areas at patients AOC 1 = 0.5 x 0.3 x 0.4 cm 2 = 0.3 x 0.3 x 0.3 cm IMPRESSION: Hypoechoic calcified lesions along the anterior calf. Findings could represent sequela p rior trauma with calcification.
== END | disposition home or self-care (01) ==
LOC: RADUSWWP 13:55
PROVIDERS: ATTEND Family Medicine
DX: I65.23 Occlusion and stenosis of bilateral carotid arteries (principal); R22.41 Localized swelling, mass and lump, right lower limb; H93.13 Tinnitus, bilateral
CPT/HCPCS: 93880

== ENCOUNTER → 2023-07-23 | Outpatient (CLI) | payer MEDICARE ==
--- NOTE | 2023-07-30 10:04 | CTL ---
EXAMINATION TYPE: CT Low Dose Lung DATE OF EXAM ORDERED: 07/23/2023 HISTORY: . Low Dose CT Lung Screening CT DLP: 175.[address] CTDI: 4.3 mGy IV CONTRAST USED: None. SCREENING VISIT: First visit COMPARISON: None. TECHNIQUE: Low dose computed tomography scan was performed through the chest at 1 millimeter thick se ctions and reconstructed images in the coronal plane at [address] DIAGNOSTIC QUALITY: Satisfactory FINDINGS: LUNG NODULES: Not presentLeft lung: no nodules identified.Right lung: no nodules identified. LUNGS: COPD: Severity: None Fibrosis: Severity:None Lymph nodes: None Other findings: None RIGHT PLEURAL SPACE: Effusion: None Calcification: None Thickening: None Pneumothorax: None LEFT PLEURAL SPACE: Effusion: None Calcification: None Thickening: None Pneumothorax: None HEART: Heart Size: Mildly enlarged Coronary calcification: Mild Pericardial effusion: None OTHER FINDINGS: Upper abdomen: No significant abnormality Bony thorax: Degenerative changes Supraclavicular region: No significant abnormalityOther: No significant abnormalityI IMPRESSION: No pulmonary nodule identified previously [address] CHEST RECOMMENDATION: Follow-up screening in one year CT LUNG RAD: LUNG RAD CATEGORY 1 negative
== END | disposition home or self-care (01) ==
LOC: RADCTMAIN 15:29
PROVIDERS: ATTEND Internal Medicine Critical Care Medicine
DX: Z12.2 Encounter for screening for malignant neoplasm of respiratory organs (principal); F17.210 Nicotine dependence, cigarettes, uncomplicated
CPT/HCPCS: 71271